=== PATIENT | male | born 1935 | race Caucasian/White ===

== ENCOUNTER 2016-03-01 18:59 | Inpatient (IN) ==
--- NOTE | 2016-03-01 19:22 | Emergency Department Note ---
Disposition Clinical Impression: Sepsis, Pneumonia Disposition: Admitted As Inpatient Condition: Serious General Adult HPI - General Chief complaint: ED General Medical Stated complaint: R/O sepsis Time Seen by Provider: 03/01/16 19:12 Source: EMS Limitations: altered mental status - History of Present Illness Pain Scale: 0 - Related Data Home Medications Medication Instructions Recorded Confirmed Atenolol [Tenormin] 12.5 mg PO DAILY 02/19/16 03/02/16 Finasteride [Proscar] 5 mg PO DAILY 02/19/16 03/02/16 Furosemide [Lasix] 20 mg PO DAILY 02/19/16 03/02/16 GlipiZIDE [Glucotrol] 5 mg PO BID 02/19/16 03/02/16 Ketorolac OPTH Soln [Acular] 1 drop LEFT EYE TID 02/19/16 03/02/16 Linagliptin [Tradjenta] 5 mg PO DAILY 02/19/16 03/02/16 Lisinopril [Zestril] 40 mg PO DAILY 02/19/16 03/02/16 Magnesium Oxide 420 mg PO BID 02/19/16 03/02/16 Moxifloxacin OPTH Drops [Vigamox] 1 drop LEFT EYE QID 02/19/16 03/02/16 Omeprazole 20 mg PO DAILY 02/19/16 03/02/16 PrednisoLONE Acetate 1% Opth 1 drop LEFT EYE QID 02/19/16 03/02/16 [PredFORTE 1%] Simvastatin [Zocor] 40 mg PO DAILY 02/19/16 03/02/16 Tamsulosin [Flomax] 0.4 mg PO BID 03/02/16 03/02/16 Allergies Allergy/AdvReac Type Severity Reaction Status Date / Time metformin AdvReac See Verified 02/19/16 20:30 Comments Penicillins [PCN] AdvReac See Verified 02/19/16 20:30 Comments Past Medical History - Past Medical History Medical history: Reports: CHF, coronary artery disease, dementia, diabetes, GERD , hyperlipidemia, hypertension, peripheral artery disease, renal disease Psychiatric history: Reports: PTSD - Social History Smoking Status: Former smoker Smokeless Tobacco Status: No Alcohol use: Reports: none Drug use: Reports: none Physical Exam - General Limitations: altered mental status General appearance: alert Course Vital Signs Temperature 100.2 F H 03/01/16 19:02 Pulse Rate 114 03/01/16 19:02 Respiratory Rate 20 03/01/16 19:02 Blood Pressure 141/84 03/01/16 19:02 O2 Sat by Pulse Oximetry 90 L 03/01/16 19:02 Temperature 99.7 F H 03/02/16 00:24 Pulse Rate 98 03/02/16 00:24 Respiratory Rate 28 03/02/16 00:24 Blood Pressure 128/69 03/02/16 00:24 O2 Sat by Pulse Oximetry 97 03/02/16 00:24 Oxygen Delivery Oxygen Delivery Venti Mask Medical Decision Making - Lab Data Result diagrams: 03/01/16 19:46 03/01/16 19:46 Lab Results 03/01/16 03/01/16 03/01/16 Range/Units 19:46 19:46 19:46 WBC 18.5 H (4.3-11.1) K/mcL RBC 3.65 L (4.19-5.50) M/mcL Hgb 11.0 L (12.9-16.9) g/dL Hct 31.4 L (37.5-50.1) % MCV 86.0 (83.0-100.0) fL MCH 30.1 (28.0-33.3) pg MCHC 35.0 (31.6-35.5) g/dL RDW 11.7 (11.5-14.5) % Plt Count 223 (140-400) K/mcL MPV 9.5 (9.4-12.4) fL Immature Gran % 0.8 (0-4) % Seg Neutrophils % 84.2 % Lymphocytes % 6.9 % Monocytes % 7.7 % Eosinophils % 0.2 % Basophils % 0.2 % Neutrophils # 15.5 H (1.6-8.9) K/mcL Lymphocytes # 1.3 (0.6-4.6) K/mcL Monocytes # 1.4 H (0.0-1.3) K/mcL Eosinophils # 0.0 (0.0-0.6) K/mcL Basophils # 0.0 (0.0-0.2) K/mcL Immature Plt Fraction 2.4 (1.1-6.1) % PT 12.6 H (9.4-12.1) Seconds INR 1.2 APTT 24.6 L (26.0-36.0) Seconds ABG pH (7.32-7.45) pH Units ABG pCO2 (35-45) mmHg ABG pO2 (85-104) mmHg ABG HCO3 (21-27) mEQ/L ABG Total CO2 (20-26) mEq/L ABG O2 Saturation (95-98) % ABG Base Excess (-2.0 to 3.0) mEq/L Blood Gas Modality Inspired O2 % Sodium 132 L (136-145) mEq/L Potassium 4.1 (3.5-4.5) mEq/L Chloride 98 (98-109) mEq/L Carbon Dioxide 23 (19-29) mEq/L BUN 30 H (8-26) mg/dL Creatinine 1.53 H (0.72-1.25) mg/dL Est GFR ( Amer) 53 L (> 60) Est GFR (Non-Af Amer) 44 L (> 60) BUN/Creatinine Ratio 20 (6-26) Glucose 327 H (70-99) mg/dL Calculated Osmolality 293 (280-300) Lactic Acid (0.5-2.2) mmol/L Calcium 8.5 L (8.6-10.8) mg/dL Phosphorus 3.4 (2.3-4.7) mg/dL Magnesium 1.6 (1.6-2.6) mg/dL Total Bilirubin 0.7 (0.2-1.2) mg/dL Direct Bilirubin 0.4 (0.0-0.5) mg/dL Indirect Bilirubin 0.3 (0.0-1.2) mg/dL AST 12 (5-34) Units/L ALT 14 (0-55) Units/L Alkaline Phosphatase 101 (38-126) Units/L Troponin I (0-0.03) ng/mL Serum Total Protein 5.8 L (6.0-8.3) g/dL Albumin 2.5 L (3.5-5.0) g/dL Globulin 3.3 (2.4-3.5) g/dL Albumin/Globulin Ratio 0.8 L (1.1-2.2) Amylase 36 (25-125) Units/L Lipase 34 (8-78) Units/L Urine Color (Yellow) Urine Clarity (Clear) Urine pH (5.0-8.0) pH Units Ur Specific Scroggins (1.010-1.025) Urine Protein (Neg-Trace) mg/dL Urine Glucose (UA) (Normal) mg/dL Urine Ketones (Negative) mg/dL Urine Blood (Negative) Urine Nitrite (Negative) Urine Bilirubin (Negative) Urine Urobilinogen (Normal) mg/dL Ur Leukocyte Esterase (Negative) Urine Microscopic RBC (0-3) per hpf Urine Microscopic WBC (0-3) per hpf Ur Squamous Epith Cells (None-Few) per lpf Urine Bacteria (None-Few) per hpf Ur Culture Indicated? (NO) 03/01/16 03/01/16 03/01/16 Range/Units 19:46 20:00 20:07 WBC (4.3-11.1) K/mcL RBC (4.19-5.50) M/mcL Hgb (12.9-16.9) g/dL Hct (37.5-50.1) % MCV (83.0-100.0) fL MCH (28.0-33.3) pg MCHC (31.6-35.5) g/dL RDW (11.5-14.5) % Plt Count (140-400) K/mcL MPV (9.4-12.4) fL Immature Gran % (0-4) % Seg Neutrophils % % Lymphocytes % % Monocytes % % Eosinophils % % Basophils % % Neutrophils # (1.6-8.9) K/mcL Lymphocytes # (0.6-4.6) K/mcL Monocytes # (0.0-1.3) K/mcL Eosinophils # (0.0-0.6) K/mcL Basophils # (0.0-0.2) K/mcL Immature Plt Fraction (1.1-6.1) % PT (9.4-12.1) Seconds INR APTT (26.0-36.0) Seconds ABG pH (7.32-7.45) pH Units ABG pCO2 (35-45) mmHg ABG pO2 (85-104) mmHg ABG HCO3 (21-27) mEQ/L ABG Total CO2 (20-26) mEq/L ABG O2 Saturation (95-98) % ABG Base Excess (-2.0 to 3.0) mEq/L Blood Gas Modality Inspired O2 % Sodium (136-145) mEq/L Potassium (3.5-4.5) mEq/L Chloride (98-109) mEq/L Carbon Dioxide (19-29) mEq/L BUN (8-26) mg/dL Creatinine (0.72-1.25) mg/dL Est GFR ( Amer) (> 60) Est GFR (Non-Af Amer) (> 60) BUN/Creatinine Ratio (6-26) Glucose (70-99) mg/dL Calculated Osmolality (280-300) Lactic Acid 1.3 (0.5-2.2) mmol/L Calcium (8.6-10.8) mg/dL Phosphorus (2.3-4.7) mg/dL Magnesium (1.6-2.6) mg/dL Total Bilirubin (0.2-1.2) mg/dL Direct Bilirubin (0.0-0.5) mg/dL Indirect Bilirubin (0.0-1.2) mg/dL AST (5-34) Units/L ALT (0-55) Units/L Alkaline Phosphatase (38-126) Units/L Troponin I 0.02 (0-0.03) ng/mL Serum Total Protein (6.0-8.3) g/dL Albumin (3.5-5.0) g/dL Globulin (2.4-3.5) g/dL Albumin/Globulin Ratio (1.1-2.2) Amylase (25-125) Units/L Lipase (8-78) Units/L Urine Color Yellow (Yellow) Urine Clarity Clear (Clear) Urine pH 6.0 (5.0-8.0) pH Units Ur Specific [place]ggins 1.020 (1.010-1.025) Urine Protein 30 H (Neg-Trace) mg/dL Urine Glucose (UA) >=1000 H (Normal) mg/dL Urine Ketones 15 H (Negative) mg/dL Urine Blood Large H (Negative) Urine Nitrite Negative (Negative) Urine Bilirubin Negative (Negative) Urine Urobilinogen Normal (Normal) mg/dL Ur Leukocyte Esterase Negative (Negative) Urine Microscopic RBC 15-30 H (0-3) per hpf Urine Microscopic WBC 0-3 (0-3) per hpf Ur Squamous Epith Cells Few (None-Few) per lpf Urine Bacteria Few (None-Few) per hpf Ur Culture Indicated? NO (NO) 03/01/16 Range/Units 21:18 WBC (4.3-11.1) K/mcL RBC (4.19-5.50) M/mcL Hgb (12.9-16.9) g/dL Hct (37.5-50.1) % MCV (83.0-100.0) fL MCH (28.0-33.3) pg MCHC (31.6-35.5) g/dL RDW (11.5-14.5) % Plt Count (140-400) K/mcL MPV (9.4-12.4) fL Immature Gran % (0-4) % Seg Neutrophils % % Lymphocytes % % Monocytes % % Eosinophils % % Basophils % % Neutrophils # (1.6-8.9) K/mcL Lymphocytes # (0.6-4.6) K/mcL Monocytes # (0.0-1.3) K/mcL Eosinophils # (0.0-0.6) K/mcL Basophils # (0.0-0.2) K/mcL Immature Plt Fraction (1.1-6.1) % PT (9.4-12.1) Seconds INR APTT (26.0-36.0) Seconds ABG pH 7.40 (7.32-7.45) pH Units ABG pCO2 43 (35-45) mmHg ABG pO2 55 L (85-104) mmHg ABG HCO3 26.6 (21-27) mEQ/L ABG Total CO2 27.9 H (20-26) mEq/L ABG O2 Saturation 88 L (95-98) % ABG Base Excess 1.6 (-2.0 to 3.0) mEq/L Blood Gas Modality VM Inspired O2 50 % Sodium (136-145) mEq/L Potassium (3.5-4.5) mEq/L Chloride (98-109) mEq/L Carbon Dioxide (19-29) mEq/L BUN (8-26) mg/dL Creatinine (0.72-1.25) mg/dL Est GFR ( Amer) (> 60) Est GFR (Non-Af Amer) (> 60) BUN/Creatinine Ratio (6-26) Glucose (70-99) mg/dL Calculated Osmolality (280-300) Lactic Acid (0.5-2.2) mmol/L Calcium (8.6-10.8) mg/dL Phosphorus (2.3-4.7) mg/dL Magnesium (1.6-2.6) mg/dL Total Bilirubin (0.2-1.2) mg/dL Direct Bilirubin (0.0-0.5) mg/dL Indirect Bilirubin (0.0-1.2) mg/dL AST (5-34) Units/L ALT (0-55) Units/L Alkaline Phosphatase (38-126) Units/L Troponin I (0-0.03) ng/mL Serum Total Protein (6.0-8.3) g/dL Albumin (3.5-5.0) g/dL Globulin (2.4-3.5) g/dL Albumin/Globulin Ratio (1.1-2.2) Amylase (25-125) Units/L Lipase (8-78) Units/L Urine Color (Yellow) Urine Clarity (Clear) Urine pH (5.0-8.0) pH Units Ur Specific [place] (1.010-1.025) Urine Protein (Neg-Trace) mg/dL Urine Glucose (UA) (Normal) mg/dL Urine Ketones (Negative) mg/dL Urine Blood (Negative) Urine Nitrite (Negative) Urine Bilirubin (Negative) Urine Urobilinogen (Normal) mg/dL Ur Leukocyte Esterase (Negative) Urine Microscopic RBC (0-3) per hpf Urine Microscopic WBC (0-3) per hpf Ur Squamous Epith Cells (None-Few) per lpf Urine Bacteria (None-Few) per hpf Ur Culture Indicated? (NO) Critical Care Time Critical Care Time: Yes Total Critical Care Time: 45 Attestation: Patient presents as a transfer from the [place] with concern for sepsis. CT chest resulted at 22:40 shows bibasilar infiltrates. Antibiotics to be initiated. Patient meets criteria for sepsis Attestation Statement - Attestation Attestation: I examined this patient and my medical decision-making was reviewed with the [employer]/PA/Advanced Practice Nurse/Resident Physician. I agree with the documented findings, disposition and treatment plan as described except to the extent set forth below. [id number] time provided in conjunction with Dr. Snow Patient presents as a transfer from the [facility] with concern for sepsis. The patient recently has experienced urinary retention secondary to prostate hypertrophy requiring a chronic indwelling [place] catheter. He also recently underwent esophageal dilation and now has some dysphasia versus underlying aphasia. The patient denies symptoms at the time of my exam. [facility] including his past medical history and current medications
--- NOTE | 2016-03-01 19:27 | Emergency Department Note ---
Disposition Clinical Impression: Sepsis Qualifiers: Sepsis type: sepsis due to unspecified organism Qualified Code(s): A41.9 - Sepsis, unspecified organism Pneumonia Qualifiers: Pneumonia type: due to unspecified organism Laterality: bilateral Lung location : lower lobe of lung Qualified Code(s): J18.9 - Pneumonia, unspecified organism Disposition: Admitted As Inpatient Condition: Serious Time of Disposition: 20:37 General Adult HPI - General Chief complaint: ED General Medical Stated complaint: R/O sepsis Time Seen by Provider: 03/01/16 19:12 Source: EMS Limitations: altered mental status Nursing Notes Reviewed: Yes Vital Signs Reviewed: Yes - History of Present Illness HPI Narrative: Patient is 80-year-old male with a history of dementia he states he does not know why he is here. Patient sent over by the [facility] for sepsis rule out secondary to chest x-ray reading for possible pneumonia. Patient's vital signs abnormal with O2 sats in the low 80s to 94% on 15 L, tachycardia in the 110 lux rate and blood pressure from 141/84 - 116/49. EMS stated that patient received esophageal dilation in . He and since then patient has had not eaten. Basically her concern for possible esophageal perforation as well. Pain Scale: 0 - Related Data Home Medications Medication Instructions Recorded Confirmed Atenolol [Tenormin] 12.5 mg PO DAILY 02/19/16 02/19/16 Finasteride [Proscar] 5 mg PO DAILY 02/19/16 02/19/16 Furosemide [Lasix] 20 mg PO DAILY 02/19/16 02/19/16 GlipiZIDE [Glucotrol] 5 mg PO BIDWM 02/19/16 02/19/16 Ketorolac OPTH Soln [Acular] 1 drop LEFT EYE TID 02/19/16 02/19/16 Linagliptin [Tradjenta] 5 mg PO DAILY 02/19/16 02/19/16 Lisinopril [Zestril] 40 mg PO DAILY 02/19/16 02/19/16 Magnesium Oxide 420 mg PO BID 02/19/16 02/19/16 Moxifloxacin OPTH Drops [Vigamox] 1 drop LEFT EYE QID 02/19/16 02/19/16 Omeprazole 20 mg PO DAILY 02/19/16 02/19/16 PrednisoLONE Acetate 1% Opth 1 drop LEFT EYE QID 02/19/16 02/19/16 [PredFORTE 1%] Simvastatin [Zocor] 20 mg PO HS 02/19/16 02/19/16 Tamsulosin [Flomax] 0.4 mg PO BID 03/02/16 03/02/16 Allergies Allergy/AdvReac Type Severity Reaction Status Date / Time metformin AdvReac See Verified 02/19/16 20:30 Comments Penicillins [PCN] AdvReac See Verified 02/19/16 20:30 Comments Review of Systems: Patient denies headache, cough, chills, nausea, vomiting, throat pain, difficulty swallowing, painful swallowing, chest pain, shortness of breath, abdominal pain, extremity pain, weakness, dizziness, neck pain, diarrhea Past Medical History - Past Medical History Source: old records reviewed Medical history: Reports: CHF, coronary artery disease, dementia, diabetes, GERD , hyperlipidemia, hypertension, peripheral artery disease, renal disease Psychiatric history: Reports: PTSD - Social History Smoking Status: Former smoker Smokeless Tobacco Status: No Alcohol use: Reports: none Drug use: Reports: none Physical Exam Vital Signs Temperature 100.2 F H 03/01/16 19:02 Pulse Rate 114 03/01/16 19:02 Respiratory Rate 20 03/01/16 19:02 Blood Pressure 141/84 03/01/16 19:02 O2 Sat by Pulse Oximetry 90 L 03/01/16 19:02 Temperature 100.2 F H 03/01/16 19:02 Pulse Rate 115 03/01/16 19:24 Respiratory Rate 28 03/01/16 19:24 Blood Pressure 116/49 03/01/16 19:24 O2 Sat by Pulse Oximetry 90 L 03/01/16 19:25 Oxygen Delivery Oxygen Delivery Venti Mask -General Appearance: Patient is a 80-year-old male sitting upright in bed this is alert and oriented to himself, he knows he is in a hospital, but he does not know what town or what today's date is. patient states the year is 1986 -Neurological exam: Cranial nerves II-12 intact, no focal deficits observed, strength equal 5/5 bilaterally in upper and lower extremities, cerebellar motion test negative. Negative loss of sensation - Head Head exam: atraumatic, normocephalic, normal inspection - Eye Eye exam: Present: normal appearance, PERRL, EOMI, negative for scleral icterus negative for conjunctival pallor - ENT ENT exam: normal exam, normal oropharynx, mucous membranes moist - Neck Neck exam: Present: normal inspection, full ROM, trachea midline, negative JVD tender to palpation along the lateral aspects of trachea just medial to SCM bilaterally - Chest Chest inspection: Present: Patient has bilateral equal rise and fall of chest wall. Non-tender to palpation. - Respiratory Respiratory exam: Clear to auscultation bilaterally without wheezes rales or rhonchi Cardiovascular Cardiovascular exam: Present: regular rate, normal rhythm, normal heart sounds, without murmurs rubs or gallops. - Abdominal Exam Abdominal exam: Present: soft, nondistended, slightly tender to palpation left lower quadrant Bowel sounds normoactive throughout all 4 quadrants. Negative for hyper or hyperresonance. - patient has long-term indwelling Fairchild catheter since December - Extremities Exam Extremities exam: Present: normal inspection, full ROM - Back Exam Back exam: Present: normal inspection, full ROM. Absent: tenderness, CVA tenderness (R), CVA tenderness (L) - Psychiatric Psychiatric exam: Present: normal affect, normal mood - Skin Skin exam: Present: warm, dry, intact, normal color - General Limitations: altered mental status General appearance: alert Course Course Narrative: Patient seen and examined. Sepsis workup ordered - Reevaluation(s) Reevaluation #1: Patient states he doing well and has no complaints. Patient continues to have desaturations of O2 from removing his mask Time: 19:30 Reevaluation #2: Patient did okay currently trying to rest. Patient still trying to remove O2 mask. Time: 20:03 - Consultations Consultation #1: Dr. Anderson accepted the patient for admission Time: 20:37 Vital Signs Temperature 100.2 F H 03/01/16 19:02 Pulse Rate 114 03/01/16 19:02 Respiratory Rate 20 03/01/16 19:02 Blood Pressure 141/84 03/01/16 19:02 O2 Sat by Pulse Oximetry 90 L 03/01/16 19:02 Temperature 99.7 F H 03/02/16 00:24 Pulse Rate 98 03/02/16 00:24 Respiratory Rate 28 03/02/16 00:24 Blood Pressure 128/69 03/02/16 00:24 O2 Sat by Pulse Oximetry 97 03/02/16 00:24 Oxygen Delivery Oxygen Delivery Venti Mask Medical Decision Making - [facility] Narrative Medical decision making narrative: Patient is tachycardic and tachypnea. Patient's conditions were some for possible sepsis and pneumonia. Sepsis workup was initiated at arrival to the ED. Patient received 3 L of fluid labs are drawn chest x-ray EKG Chest x-ray showed bilateral bibasilar atelectasis. Have high clinical suspicion secondary to patient's tachycardia and desaturations of O2 sats rule high flow O2. Consulted with admitting physician who recommends CT without contrast. CT showed bilateral lower lobe pneumonias. She has a WBC count of 18,000. Patient has a creatinine of 1.53 but is lower than previous accounts. Patient has chronic renal disease. Patient was admitted to the hospital for further workup. Dr. Anderson accepted for admission. - Medical Records Medical records reviewed: Yes I reviewed the patient's medical records. - Lab Data Lab results reviewed: Yes I reviewed the patient's lab results. Result diagrams: 03/01/16 19:46 03/01/16 19:46 Lab Results 03/01/16 03/01/16 03/01/16 Range/Units 19:46 19:46 19:46 WBC 18.5 H (4.3-11.1) K/mcL RBC 3.65 L (4.19-5.50) M/mcL Hgb 11.0 L (12.9-16.9) g/dL Hct 31.4 L (37.5-50.1) % MCV 86.0 (83.0-100.0) fL MCH 30.1 (28.0-33.3) pg MCHC 35.0 (31.6-35.5) g/dL RDW 11.7 (11.5-14.5) % Plt Count 223 (140-400) K/mcL MPV 9.5 (9.4-12.4) fL Immature Gran % 0.8 (0-4) % Seg Neutrophils % 84.2 % Lymphocytes % 6.9 % Monocytes % 7.7 % Eosinophils % 0.2 % Basophils % 0.2 % Neutrophils # 15.5 H (1.6-8.9) K/mcL Lymphocytes # 1.3 (0.6-4.6) K/mcL Monocytes # 1.4 H (0.0-1.3) K/mcL Eosinophils # 0.0 (0.0-0.6) K/mcL Basophils # 0.0 (0.0-0.2) K/mcL Immature Plt Fraction 2.4 (1.1-6.1) % PT 12.6 H (9.4-12.1) Seconds INR 1.2 APTT 24.6 L (26.0-36.0) Seconds ABG pH (7.32-7.45) pH Units ABG pCO2 (35-45) mmHg ABG pO2 (85-104) mmHg ABG HCO3 (21-27) mEQ/L ABG Total CO2 (20-26) mEq/L ABG O2 Saturation (95-98) % ABG Base Excess (-2.0 to 3.0) mEq/L Blood Gas Modality Inspired O2 % Sodium 132 L (136-145) mEq/L Potassium 4.1 (3.5-4.5) mEq/L Chloride 98 (98-109) mEq/L Carbon Dioxide 23 (19-29) mEq/L BUN 30 H (8-26) mg/dL Creatinine 1.53 H (0.72-1.25) mg/dL Est GFR ( Amer) 53 L (> 60) Est GFR (Non-Af Amer) 44 L (> 60) BUN/Creatinine Ratio 20 (6-26) Glucose 327 H (70-99) mg/dL Calculated Osmolality 293 (280-300) Lactic Acid (0.5-2.2) mmol/L Calcium 8.5 L (8.6-10.8) mg/dL Phosphorus 3.4 (2.3-4.7) mg/dL Magnesium 1.6 (1.6-2.6) mg/dL Total Bilirubin 0.7 (0.2-1.2) mg/dL Direct Bilirubin 0.4 (0.0-0.5) mg/dL Indirect Bilirubin 0.3 (0.0-1.2) mg/dL AST 12 (5-34) Units/L ALT 14 (0-55) Units/L Alkaline Phosphatase 101 (38-126) Units/L Troponin I (0-0.03) ng/mL Serum Total Protein 5.8 L (6.0-8.3) g/dL Albumin 2.5 L (3.5-5.0) g/dL Globulin 3.3 (2.4-3.5) g/dL Albumin/Globulin Ratio 0.8 L (1.1-2.2) Amylase 36 (25-125) Units/L Lipase 34 (8-78) Units/L Urine Color (Yellow) Urine Clarity (Clear) Urine pH (5.0-8.0) pH Units Ur Specific Trinity (1.010-1.025) Urine Protein (Neg-Trace) mg/dL Urine Glucose (UA) (Normal) mg/dL Urine Ketones (Negative) mg/dL Urine Blood (Negative) Urine Nitrite (Negative) Urine Bilirubin (Negative) Urine Urobilinogen (Normal) mg/dL Ur Leukocyte Esterase (Negative) Urine Microscopic RBC (0-3) per hpf Urine Microscopic WBC (0-3) per hpf Ur Squamous Epith Cells (None-Few) per lpf Urine Bacteria (None-Few) per hpf Ur Culture Indicated? (NO) 03/01/16 03/01/16 03/01/16 Range/Units 19:46 20:00 20:07 WBC (4.3-11.1) K/mcL RBC (4.19-5.50) M/mcL Hgb (12.9-16.9) g/dL Hct (37.5-50.1) % MCV (83.0-100.0) fL MCH (28.0-33.3) pg MCHC (31.6-35.5) g/dL RDW (11.5-14.5) % Plt Count (140-400) K/mcL MPV (9.4-12.4) fL Immature Gran % (0-4) % Seg Neutrophils % % Lymphocytes % % Monocytes % % Eosinophils % % Basophils % % Neutrophils # (1.6-8.9) K/mcL Lymphocytes # (0.6-4.6) K/mcL Monocytes # (0.0-1.3) K/mcL Eosinophils # (0.0-0.6) K/mcL Basophils # (0.0-0.2) K/mcL Immature Plt Fraction (1.1-6.1) % PT (9.4-12.1) Seconds INR APTT (26.0-36.0) Seconds ABG pH (7.32-7.45) pH Units ABG pCO2 (35-45) mmHg ABG pO2 (85-104) mmHg ABG HCO3 (21-27) mEQ/L ABG Total CO2 (20-26) mEq/L ABG O2 Saturation (95-98) % ABG Base Excess (-2.0 to 3.0) mEq/L Blood Gas Modality Inspired O2 % Sodium (136-145) mEq/L Potassium (3.5-4.5) mEq/L Chloride (98-109) mEq/L Carbon Dioxide (19-29) mEq/L BUN (8-26) mg/dL Creatinine (0.72-1.25) mg/dL Est GFR ( Amer) (> 60) Est GFR (Non-Af Amer) (> 60) BUN/Creatinine Ratio (6-26) Glucose (70-99) mg/dL Calculated Osmolality (280-300) Lactic Acid 1.3 (0.5-2.2) mmol/L Calcium (8.6-10.8) mg/dL Phosphorus (2.3-4.7) mg/dL Magnesium (1.6-2.6) mg/dL Total Bilirubin (0.2-1.2) mg/dL Direct Bilirubin (0.0-0.5) mg/dL Indirect Bilirubin (0.0-1.2) mg/dL AST (5-34) Units/L ALT (0-55) Units/L Alkaline Phosphatase (38-126) Units/L Troponin I 0.02 (0-0.03) ng/mL Serum Total Protein (6.0-8.3) g/dL Albumin (3.5-5.0) g/dL Globulin (2.4-3.5) g/dL Albumin/Globulin Ratio (1.1-2.2) Amylase (25-125) Units/L Lipase (8-78) Units/L Urine Color Yellow (Yellow) Urine Clarity Clear (Clear) Urine pH 6.0 (5.0-8.0) pH Units Ur Specific Trinity 1.020 (1.010-1.025) Urine Protein 30 H (Neg-Trace) mg/dL Urine Glucose (UA) >=1000 H (Normal) mg/dL Urine Ketones 15 H (Negative) mg/dL Urine Blood Large H (Negative) Urine Nitrite Negative (Negative) Urine Bilirubin Negative (Negative) Urine Urobilinogen Normal (Normal) mg/dL Ur Leukocyte Esterase Negative (Negative) Urine Microscopic RBC 15-30 H (0-3) per hpf Urine Microscopic WBC 0-3 (0-3) per hpf Ur Squamous Epith Cells Few (None-Few) per lpf Urine Bacteria Few (None-Few) per hpf Ur Culture Indicated? NO (NO) 03/01/16 Range/Units 21:18 WBC (4.3-11.1) K/mcL RBC (4.19-5.50) M/mcL Hgb (12.9-16.9) g/dL Hct (37.5-50.1) % MCV (83.0-100.0) fL MCH (28.0-33.3) pg MCHC (31.6-35.5) g/dL RDW (11.5-14.5) % Plt Count (140-400) K/mcL MPV (9.4-12.4) fL Immature Gran % (0-4) % Seg Neutrophils % % Lymphocytes % % Monocytes % % Eosinophils % % Basophils % % Neutrophils # (1.6-8.9) K/mcL Lymphocytes # (0.6-4.6) K/mcL Monocytes # (0.0-1.3) K/mcL Eosinophils # (0.0-0.6) K/mcL Basophils # (0.0-0.2) K/mcL Immature Plt Fraction (1.1-6.1) % PT (9.4-12.1) Seconds INR APTT (26.0-36.0) Seconds ABG pH 7.40 (7.32-7.45) pH Units ABG pCO2 43 (35-45) mmHg ABG pO2 55 L (85-104) mmHg ABG HCO3 26.6 (21-27) mEQ/L ABG Total CO2 27.9 H (20-26) mEq/L ABG O2 Saturation 88 L (95-98) % ABG Base Excess 1.6 (-2.0 to 3.0) mEq/L Blood Gas Modality VM Inspired O2 50 % Sodium (136-145) mEq/L Potassium (3.5-4.5) mEq/L Chloride (98-109) mEq/L Carbon Dioxide (19-29) mEq/L BUN (8-26) mg/dL Creatinine (0.72-1.25) mg/dL Est GFR ( Amer) (> 60) Est GFR (Non-Af Amer) (> 60) BUN/Creatinine Ratio (6-26) Glucose (70-99) mg/dL Calculated Osmolality (280-300) Lactic Acid (0.5-2.2) mmol/L Calcium (8.6-10.8) mg/dL Phosphorus (2.3-4.7) mg/dL Magnesium (1.6-2.6) mg/dL Total Bilirubin (0.2-1.2) mg/dL Direct Bilirubin (0.0-0.5) mg/dL Indirect Bilirubin (0.0-1.2) mg/dL AST (5-34) Units/L ALT (0-55) Units/L Alkaline Phosphatase (38-126) Units/L Troponin I (0-0.03) ng/mL Serum Total Protein (6.0-8.3) g/dL Albumin (3.5-5.0) g/dL Globulin (2.4-3.5) g/dL Albumin/Globulin Ratio (1.1-2.2) Amylase (25-125) Units/L Lipase (8-78) Units/L Urine Color (Yellow) Urine Clarity (Clear) Urine pH (5.0-8.0) pH Units Ur Specific Trinity (1.010-1.025) Urine Protein (Neg-Trace) mg/dL Urine Glucose (UA) (Normal) mg/dL Urine Ketones (Negative) mg/dL Urine Blood (Negative) Urine Nitrite (Negative) Urine Bilirubin (Negative) Urine Urobilinogen (Normal) mg/dL Ur Leukocyte Esterase (Negative) Urine Microscopic RBC (0-3) per hpf Urine Microscopic WBC (0-3) per hpf Ur Squamous Epith Cells (None-Few) per lpf Urine Bacteria (None-Few) per hpf Ur Culture Indicated? (NO) Short CBC 03/01/16 Range/Units 19:46 WBC 18.5 H (4.3-11.1) K/mcL Hgb 11.0 L (12.9-16.9) g/dL Hct 31.4 L (37.5-50.1) % Plt Count 223 (140-400) K/mcL Neutrophils # 15.5 H (1.6-8.9) K/mcL BMP 03/01/16 Range/Units 19:46 Sodium 132 L (136-145) mEq/L Potassium 4.1 (3.5-4.5) mEq/L Chloride 98 (98-109) mEq/L Carbon Dioxide 23 (19-29) mEq/L BUN 30 H (8-26) mg/dL Creatinine 1.53 H (0.72-1.25) mg/dL Glucose 327 H (70-99) mg/dL Calcium 8.5 L (8.6-10.8) mg/dL Cardiac Enzymes 03/01/16 Range/Units 19:46 Troponin I 0.02 (0-0.03) ng/mL Liver Function 03/01/16 Range/Units 19:46 Total Bilirubin 0.7 (0.2-1.2) mg/dL Direct Bilirubin 0.4 (0.0-0.5) mg/dL AST 12 (5-34) Units/L ALT 14 (0-55) Units/L Alkaline Phosphatase 101 (38-126) Units/L Albumin 2.5 L (3.5-5.0) g/dL Urine 03/01/16 Range/Units 20:00 Urine Color Yellow (Yellow) Urine Clarity Clear (Clear) Urine pH 6.0 (5.0-8.0) pH Units Ur Specific Trinity 1.020 (1.010-1.025) Urine Protein 30 H (Neg-Trace) mg/dL Urine Glucose (UA) >=1000 H (Normal) mg/dL - Radiology Data Radiology results reviewed: Yes I reviewed the patient's radiology results. Chest X-Ray 03/01/16 19:27 IMPRESSION: 1. Pulmonary vascular congestion and suspected perihilar edema with mild cardiomegaly, suggesting congestive heart failure. 2. Bibasilar opacities most likely represent atelectasis. D/ / Mohan Veliz MD / Mohan Veliz MD Interpreting Provider: Mohan Veliz MD Chest CT 03/01/16 21:10 IMPRESSION: Motion artifact limits evaluation. However there is consolidation in both lower lobes compatible with pneumonia, possibly related to aspiration. At least moderate atherosclerotic calcification including the coronary arteries and aortic valve. D/ / 03/01/2016 22:36:01 Alireza Peralta MD / Tania Preciado Interpreting Provider: Alireza Peralta MD - EKG Data EKG #1 EKG attestation: Yes I reviewed and interpreted this EKG. EKG results narrative: EKG taken 03/01/2016 at 1920 hrs. shows a sinus tach at a ventricular rate of 113 bpm as he depression in V3 EKG taken 1219 2015 for comparison shows sinus rhythm with PACs with no ST abnormalities.
[2016-03-01] MEDS: 0.9 % Sodium Chloride 1,000 ML IVC SCH ×3 (19:29→20:37)
[2016-03-01] MEDS ORDERED: 0.9 % Sodium Chloride 1,000 ML IVC SCH (19:30)
[2016-03-01 20:00] LABS: Basophils % 0.2 %; Eosinophils % 0.2 %; Hematocrit 31.4 % (37.5-50.1); Immature Granulocytes % 0.8 % (0-4); Immature Platelets 2.4 % (1.1-6.1); Lymphocytes # 1.3 K/mcL (0.6-4.6); Lymphocytes % 6.9 %; Mean Corpuscular Hemoglobin 30.1 pg (28.0-33.3); Mean Platelet Volume 9.5 fL (9.4-12.4); Monocytes # 1.4 K/mcL (0.0-1.3); Monocytes % 7.7 %; Neutrophils # 15.5 K/mcL (1.6-8.9); Platelet Count 223 K/mcL (140-400); Red Blood Count 3.65 M/mcL (4.19-5.50); Red Cell Distribution Width 11.7 % (11.5-14.5); Segmented Neutrophils % 84.2 %
[2016-03-01 20:05] LABS: INR 1.2; Prothrombin Time 12.6 Seconds (9.4-12.1)
[2016-03-01 20:07] LABS: Activated Partial Thrombo Time 24.6 Seconds (26.0-36.0)
[2016-03-01 20:16] LABS: Albumin 2.5 g/dL (3.5-5.0); Albumin/Globulin Ratio 0.8 (1.1-2.2); Bilirubin,Direct 0.4 mg/dL (0.0-0.5); Bilirubin,Indirect 0.3 mg/dL (0.0-1.2); Bilirubin,Total 0.7 mg/dL (0.2-1.2); Calcium 8.5 mg/dL (8.6-10.8); Globulin 3.3 g/dL (2.4-3.5); Magnesium 1.6 mg/dL (1.6-2.6); Phosphorous 3.4 mg/dL (2.3-4.7); Potassium 4.1 mEq/L (3.5-4.5); Total Protein 5.8 g/dL (6.0-8.3)
[2016-03-01 20:20] LABS: Bilirubin,Urine Negative (Negative); Blood,Urine Large (Negative); Clarity,Urine Clear (Clear); Color,Urine Yellow (Yellow); Glucose,Urine (UA) >=1000 mg/dL (Normal); Ketones,Urine 15 mg/dL (Negative); Leukocyte Esterase,Urine Negative (Negative); Nitrite,Urine Negative (Negative); Protein,Urine 30 mg/dL (Neg-Trace); Urobilinogen,Urine Normal (Normal)
[2016-03-01 20:32] LABS: Bacteria,Urine Few per hpf (None-Few); RBC,Urine 15-30 per hpf (0-3); WBC,Urine 0-3 per hpf (0-3)
[2016-03-01 20:33] LABS: Squamous Epithelial Cell,Urine Few per lpf (None-Few)
[2016-03-01 21:29] LABS: ABG Base Excess 1.6 mEq/L (-2.0 to 3.0); ABG HCO3 26.6 mEQ/L (21-27); ABG Oxygen Saturation 88 % (95-98); ABG PCO2 43 mmHg (35-45); ABG PO2 55 mmHg (85-104); ABG TCO2 27.9 mEq/L (20-26); Blood Gas FiO2 50 %
--- NOTE | 2016-03-01 22:22 | Internal Med History&Physical ---
Date of Encounter: 03/01/16 Time of Encounter: 22:00 Assessment and Plan (1) Sepsis Current visit: Yes Status: Acute Sepsis secondary to likely pneumonia in the setting of acute respiratory failure. Patient also found to have elevated WBC 18.5, tachycardia, tachypnea. Currently oxygen saturation improving on 15 LMP via ventimask. Blood cultures pending. Plan to start Levaquin, Cefepime, and clindamycin. Qualifiers: Sepsis type: sepsis due to unspecified organism Qualified Code(s): A41.9 - Sepsis, unspecified organism (2) Acute respiratory failure with hypoxia Current visit: Yes Status: Acute Secondary to bilateral lower lobe pneumonia. CT chest showed bilateral infiltrate suggestive of pneumonia, possibly related to aspiration. See above. (3) Pneumonia Current visit: Yes Status: Acute Concern for HAP as patient was recently inpatient for 4 days last week. See plan above. Qualifiers: Pneumonia type: aspiration pneumonia Aspiration pneumonia type: unspecified Laterality: bilateral Lung location: lower lobe of lung Qualified Code(s): J69.0 - Pneumonitis due to inhalation of food and vomit (4) Dysphagia Current visit: No Status: Chronic History of dysphagia, underwent esophageal dilation on 02/01/16. Concern for aspiration pneumonia. Currently NPO Speech consulted to re-evaluate swallowing. Qualifiers: Dysphagia type: pharyngeal phase Qualified Code(s): R13.13 - Dysphagia, pharyngeal phase (5) Anemia Current visit: No Status: Chronic H/H stable. Continue to monitor. No signs of active bleeding. Qualifiers: Anemia type: unspecified type Qualified Code(s): D64.9 - Anemia, unspecified (6) CAD (coronary artery disease) Current visit: No Status: Chronic Continue ASA, statin, BB Qualifiers: Coronary Disease-Associated Artery/Lesion type: zuni artery [place] vs. transplanted heart: zuni heart Associated angina: without angina Qualified Code(s): I25.10 - Atherosclerotic heart disease of zuni coronary artery without angina pectoris (7) CHF (congestive heart failure) Current visit: No Status: Chronic CXR showed perihilar edema suggestive of CHF. Clinically does not appear to be fluid overloaded. Qualifiers: Congestive heart failure type: unspecified congestive heart failure type Congestive heart failure chronicity: unspecified congestive heart failure chronicity Qualified Code(s): I50.9 - Heart failure, unspecified (8) Dementia Current visit: No Status: Chronic Patient oriented to person, but not place, time, or situation. Qualifiers: Dementia type: Alzheimer's disease Alzheimer's disease onset: unspecified onset Dementia behavioral disturbance: without behavioral disturbance Qualified Code(s): G30.9 - Alzheimer's disease, unspecified; F02.80 - Dementia in other diseases classified elsewhere without behavioral disturbance (9) Diabetes Current visit: No Status: Chronic BG elevated at 327. Will initiate SSI Monitor Q6H. Qualifiers: Diabetes mellitus type: type 2 Diabetes mellitus complication status: without complication Diabetes mellitus penitentiary insulin use: without penitentiary use Qualified Code(s): E11.9 - Type 2 diabetes mellitus without complications (10) Hyperlipidemia Current visit: No Status: Chronic Continue statin. Qualifiers: Hyperlipidemia type: unspecified Qualified Code(s): E78.5 - Hyperlipidemia , unspecified (11) Hypertension Current visit: No Status: Chronic Currently normotensive. Continue hiome medicatons. Qualifiers: Hypertension type: essential hypertension Qualified Code(s): I10 - Essential (primary) hypertension Internal Medicine - H&P: HPI Chief complaint: r/o sepsis Admitted From: Hospital to Hospital Transfer Plans for Post Hospital Care: Home History of present illness: Mr. Edge is a 80 year old male that presents from the [place] with concerns of sepsis. Patient has pertinent history of Alzheimer's and is unable to give any history. Patient currently denies any and all complaints during examination. Patient had an esophageal dilation on 02/21/16 for dysphagia, for which he currently does not recall. Known history of urinary retention due to prostate hypertrophy with a chronic indwelling henderson. Recently diagnosed with UTI, negative UA in the ED today. Patient found to be in respiratory distress with hypoxia, requiring 15 LPM via ventimask to maintain O2 above 90%. CT chest suggestive of pneumonia, possibly related to aspiration. Past Med Surg Social Fam HX - Past Medical History Medical history: CHF, coronary artery disease, dementia, diabetes, GERD, hyperlipidemia, hypertension, peripheral artery disease, renal disease Psychiatric history: PTSD - Social History Smoking Status: Former smoker Smokeless Tobacco Status: No Alcohol use: none Drug use: none Internal Medicine - H&P: Meds Atenolol [Tenormin] 12.5 mg PO DAILY 02/19/16 [History] Finasteride [Proscar] 5 mg PO DAILY 02/19/16 [History] Fosfomycin Tromethamine [Monurol] 3 gm PO Q48H 02/19/16 [History] Furosemide [Lasix] 20 mg PO DAILY 02/19/16 [History] GlipiZIDE [Glucotrol] 5 mg PO BIDWM 02/19/16 [History] Ketorolac OPTH Soln [Acular] 1 drop LEFT EYE TID 02/19/16 [History] Linagliptin [Tradjenta] 5 mg PO DAILY 02/19/16 [History] Lisinopril [Zestril] 40 mg PO DAILY 02/19/16 [History] Magnesium Oxide 420 mg PO BID 02/19/16 [History] Moxifloxacin OPTH Drops [Vigamox] 1 drop LEFT EYE QID 02/19/16 [History] Omeprazole 20 mg PO DAILY 02/19/16 [History] PrednisoLONE Acetate 1% Opth [PredFORTE 1%] 1 drop LEFT EYE QID 02/19/16 [ History] Simvastatin [Zocor] 20 mg PO HS 02/19/16 [History] Levofloxacin [Levaquin] 250 mg PO DAILY #7 tablet 02/22/16 [Rx] Allergies metformin Adverse Reaction (Verified 02/19/16 20:30) See Comments Penicillins [PCN] Adverse Reaction (Verified 02/19/16 20:30) See Comments ROS unobtainable: due to mental status All Systems PM: A 10-system review of systems was performed and is negative for pertinent findings except as documented above in the HPI. - EENT Nose, mouth and throat: dysphagia - Respiratory Respiratory: dyspnea - Constitutional Vitals: Temp Pulse Resp BP Pulse Ox 100.2 F H 107 24 125/69 94 L 03/01/16 19:02 03/01/16 21:42 03/01/16 21:42 03/01/16 21:42 03/01/16 21:42 General appearance: Present: cooperative, A&O X 1, mild distress, pleasant. Absent: answers questions appropriately - Head Head exam: Present: atraumatic, normocephalic - Eye Eye exam: Present: EOMI, conjuntiva pink, sclera anicteric Pupils: Present: miosis - Neck Neck exam general surgery: Present: supple, trachea midline. Absent: lymphadenopathy, tenderness, nuchal rigidity - Respiratory Respiratory exam: Present: decreased breath sounds, CTAB. Absent: accessory muscle use, rales, rhonchi, wheezes - Cardiovascular Cardiovascular exam: Present: distant heart sounds, +S1, +S2, tachycardia. Absent: gallop, rubs - GI/Abdominal GI/Abdominal exam: Present: normal bowel sounds, soft, no peritoneal signs. Absent: distended, guarding, tenderness - Extremities Exam Extremities exam: Present: warm, radial pulses palpable and symetrical (Left dorsalis pedis 1+, right dorsalis pedis 2+). Absent: calf tenderness, cyanotic , pedal edema - Neurological Exam Neurological exam: Present: alert, altered, no focal deficits, strengths equal and symetr throughout. Absent: facial droop, speech deficit - Skin Skin exam: Present: dry, intact Internal Med - H&P Results - Labs CBC & Chem 7: 03/01/16 19:46 03/01/16 19:46
[2016-03-01] MEDS ORDERED: Vancomycin 1,000 MG in D5% in Water 250 ML IVPB ONE (22:40)
[2016-03-01] MEDS ORDERED: Levofloxacin 500 MG/100 ML 500 MG/100 ML BAG IVPB ONE (22:52)
[2016-03-01] MEDS ORDERED: Clindamycin 900 MG/50 ML 900 MG/50 ML IV.SOLN IVPB ONE (22:52)
[2016-03-01] MEDS ORDERED: D5% in Water 1,000 ML IV PRN (23:41)
[2016-03-01] MEDS ORDERED: Dextrose Gel 15 GM PO PRN ×2 (23:41)
[2016-03-01] MEDS ORDERED: *HR* Dextrose 50 % in Water (Syg) 50 ML SYRINGE IVP PRN (23:41)
[2016-03-02] MEDS ORDERED: Cefepime HCl 2,000 MG in D5% in Water (Mini-Bag+) 100 ML IVPB SCH
[2016-03-02] MEDS: 0.9 % Sodium Chloride 1,000 ML IVC SCH (01:17)
[2016-03-02] MEDS: Cefepime HCl 2,000 MG in D5% in Water (Mini-Bag+) 100 ML IVPB SCH ×2 (01:17→14:10)
[2016-03-02] MEDS: Insulin LISPRO 300 UNITS/3 ML VIAL SQ SCH ×4 (01:25→18:52)
[2016-03-02 05:24] LABS: Basophils % 0.2 %; Eosinophils % 0.2 %; Hematocrit 29.7 % (37.5-50.1); Hemoglobin 10.1 g/dL (12.9-16.9); Immature Granulocytes % 0.8 % (0-4); Lymphocytes # 1.9 K/mcL (0.6-4.6); Lymphocytes % 11.8 %; Mean Corpuscular Volume 88.1 fL (83.0-100.0); Mean Platelet Volume 9.6 fL (9.4-12.4); Monocytes # 1.3 K/mcL (0.0-1.3); Neutrophils # 12.6 K/mcL (1.6-8.9); Platelet Count 217 K/mcL (140-400); Red Blood Count 3.37 M/mcL (4.19-5.50); Red Cell Distribution Width 11.7 % (11.5-14.5)
[2016-03-02 05:44] LABS: BUN/Creatinine Ratio 20 (6-26); Blood Urea Nitrogen 24 mg/dL (8-26); Calcium 7.9 mg/dL (8.6-10.8); Carbon Dioxide 23 mEq/L (19-29); Chloride 105 mEq/L (98-109); Glucose 150 mg/dL (70-99); Osmolality,Calculated 289 (280-300); Potassium 3.8 mEq/L (3.5-4.5); Sodium 136 mEq/L (136-145); eGFR For African Americans > 60 (> 60); eGFR For Non-African Americans 59 (> 60)
[2016-03-02] MEDS: Clindamycin 600 MG/50 ML 600 MG/50 ML IV.SOLN IVPB SCH ×2 (10:34→18:51)
[2016-03-02] MEDS: Pantoprazole 40 MG VIAL IVP SCH (10:34)
--- NOTE | 2016-03-02 18:14 | Internal Med Progress Note ---
Date of Encounter: 03/02/16 Time of Encounter: 18:00 - Assessment and plan (1) Acute respiratory failure with hypoxia Current Visit: Yes Status: Acute Assessment and plan: Possible secondary to aspiration pneumonia continue current antibiotic, continue aerosol treatment, awaiting speech therapy for evaluation (2) Pneumonia Current Visit: Yes Status: Acute Qualifiers: Pneumonia type: aspiration pneumonia Aspiration pneumonia type: unspecified Laterality: bilateral Lung location: lower lobe of lung Qualified Code(s): J69.0 - Pneumonitis due to inhalation of food and vomit (3) Dysphagia Current Visit: No Status: Chronic Assessment and plan: speech therapy to evaluate next am Qualifiers: Dysphagia type: pharyngeal phase Qualified Code(s): R13.13 - Dysphagia, pharyngeal phase (4) Mental status alteration Current Visit: Yes Status: Acute Assessment and plan: Possible secondary to pneumonia will reevaluate next exam. Check vitamin B12 and 25-hydroxy vitamin D Qualifiers: Altered mental status type: delirium Qualified Code(s): R41.0 - Disorientation, unspecified - Time Spent With Patient 25 - 35 minutes - Subjective Interval history: Patient is feeling better still continue to have shortness of breath. he is alert oriented 1 - Constitutional Vitals: Temp Pulse Resp BP Pulse Ox 97.6 F 114 20 113/89 94 L 03/02/16 15:00 03/02/16 15:00 03/02/16 15:00 03/02/16 15:00 03/02/16 15:00 General appearance: Present: cooperative, A&O X 1, mild distress, pleasant. Absent: answers questions appropriately - Head Head exam: Present: atraumatic, normocephalic - Neck Neck exam general surgery: Present: supple, trachea midline. Absent: lymphadenopathy - Respiratory Respiratory exam: Present: decreased breath sounds, CTAB, prolonged expiratory phase, rales (Diffuse crackles and expiratory wheezing bilateral), wheezes. Absent: accessory muscle use, rhonchi - Cardiovascular Cardiovascular exam: Present: RRR, +S1, +S2. Absent: diastolic murmur, gallop, rubs, systolic murmur - GI/Abdominal GI/Abdominal exam: Present: normal bowel sounds, soft, no peritoneal signs. Absent: distended, tenderness - Extremities Exam Extremities exam: Present: warm, radial pulses palpable and symetrical. Absent : calf tenderness, cyanotic, pedal edema - Neurological Exam Neurological exam: Present: CN II-XII intact, no focal deficits. Absent: facial droop, speech deficit Internal Medicine: Result - Labs CBC & Chem 7: 03/02/16 05:05 03/02/16 05:05 Labs: Short CBC 03/02/16 Range/Units 05:05 WBC 16.0 H (4.3-11.1) K/mcL Hgb 10.1 L (12.9-16.9) g/dL Hct 29.7 L (37.5-50.1) % Plt Count 217 (140-400) K/mcL Neutrophils # 12.6 H (1.6-8.9) K/mcL BMP 03/02/16 05:05 Sodium 136 Potassium 3.8 Chloride 105 Carbon Dioxide 23 BUN 24 Creatinine 1.19 Glucose 150 H Calcium 7.9 L - ABG Interpretation ABG results: ABG ABG pH 7.40 pH Units (7.32-7.45) 03/01/16 21:18 ABG pCO2 43 mmHg (35-45) 03/01/16 21:18 ABG pO2 55 mmHg (85-104) L 03/01/16 21:18 ABG O2 Saturation 88 % (95-98) L 03/01/16 21:18 PT/INR, D-dimer PT 12.6 Seconds (9.4-12.1) H 03/01/16 19:46 Consult Discharge Plan - Plan [facility]: [facility] [Primary Care Provider[facility] -
[2016-03-02] MEDS ORDERED: Thiamine (B-1) 100 MG in D5% in Water 50 ML IVPB ONE (18:21)
[2016-03-02] MEDS: Lactobacillus 1 EACH CAP.SPRINK PO SCH (18:49)
[2016-03-02] MEDS: Ipratropium/Albuterol Neb 3 ML IH SCH (21:40)
[2016-03-02] MEDS ORDERED: Levofloxacin 750 MG/150 ML 750 MG/150 ML BAG IVPB SCH (22:00)
[2016-03-03] MEDS: 0.9 % Sodium Chloride 1,000 ML IVC SCH (00:03)
[2016-03-03] MEDS: Clindamycin 600 MG/50 ML 600 MG/50 ML IV.SOLN IVPB SCH ×4 (00:04→22:48)
[2016-03-03] MEDS: Insulin LISPRO 300 UNITS/3 ML VIAL SQ SCH ×4 (00:04→18:30)
[2016-03-03] MEDS: Ipratropium/Albuterol Neb 3 ML IH SCH ×7 (00:37→23:21)
[2016-03-03] MEDS: Cefepime HCl 2,000 MG in D5% in Water (Mini-Bag+) 100 ML IVPB SCH ×2 (00:55→13:29)
[2016-03-03 05:51] LABS: Basophils # 0.1 K/mcL (0.0-0.2); Basophils % 0.4 %; Eosinophils # 0.2 K/mcL (0.0-0.6); Eosinophils % 1.2 %; Hemoglobin 10.7 g/dL (12.9-16.9); Immature Granulocytes % 0.9 % (0-4); Lymphocytes # 1.4 K/mcL (0.6-4.6); Lymphocytes % 9.9 %; Mean Corpuscular HGB Conc 34.5 g/dL (31.6-35.5); Mean Corpuscular Hemoglobin 30.4 pg (28.0-33.3); Mean Corpuscular Volume 88.1 fL (83.0-100.0); Mean Platelet Volume 9.5 fL (9.4-12.4); Monocytes # 1.2 K/mcL (0.0-1.3); Monocytes % 8.5 %; Neutrophils # 10.8 K/mcL (1.6-8.9); Platelet Count 224 K/mcL (140-400); Red Blood Count 3.52 M/mcL (4.19-5.50); Red Cell Distribution Width 12.1 % (11.5-14.5); Segmented Neutrophils % 79.1 %
[2016-03-03 06:31] LABS: BUN/Creatinine Ratio 18 (6-26); Blood Urea Nitrogen 20 mg/dL (8-26); Calcium 8.1 mg/dL (8.6-10.8); Carbon Dioxide 18 mEq/L (19-29); Chloride 110 mEq/L (98-109); Glucose 166 mg/dL (70-99); Osmolality,Calculated 292 (280-300); Potassium 3.6 mEq/L (3.5-4.5); Sodium 138 mEq/L (136-145); eGFR For African Americans > 60 (> 60); eGFR For Non-African Americans > 60 (> 60)
[2016-03-03 06:32] LABS: Phosphorous 2.8 mg/dL (2.3-4.7)
[2016-03-03] MEDS: Lactobacillus 1 EACH CAP.SPRINK PO SCH (09:55)
[2016-03-03] MEDS: Pantoprazole 40 MG VIAL IVP SCH (09:55)
[2016-03-03] MEDS ORDERED: Furosemide 40 MG/4 ML VIAL IVP ONE (11:34)
--- NOTE | 2016-03-03 11:38 | Internal Med Progress Note ---
Date of Encounter: 03/03/16 Time of Encounter: 10:50 - Assessment and plan (1) Acute respiratory failure with hypoxia Current Visit: Yes Status: Acute Assessment and plan: Possible secondary to aspiration pneumonia , CHF , change home Lasix to IV . 40 mg Lasix now .resume beta andrea and ALANA inhibitor .continue current antibiotic, continue aerosol treatment, modified diet started (2) Pneumonia Current Visit: Yes Status: Acute Qualifiers: Pneumonia type: aspiration pneumonia Aspiration pneumonia type: unspecified Laterality: bilateral Lung location: lower lobe of lung Qualified Code(s): J69.0 - Pneumonitis due to inhalation of food and vomit (3) Dysphagia Current Visit: No Status: Chronic Assessment and plan: agreed with speach therapy .start modified diet Qualifiers: Dysphagia type: pharyngeal phase Qualified Code(s): R13.13 - Dysphagia, pharyngeal phase (4) Mental status alteration Current Visit: Yes Status: Acute Assessment and plan: Possible secondary to pneumonia ,Family meeting to evaluate for his baseline , continue current treatment Qualifiers: Altered mental status type: delirium Qualified Code(s): R41.0 - Disorientation, unspecified (5) Diabetes mellitus Current Visit: Yes Status: Acute Assessment and plan: Add insulin sliding scale, last hemoglobin A1c is more than 9 need home health care on discharge Qualifiers: Diabetes mellitus type: type 2 Diabetes mellitus complication status: with diabetic arthropathy Diabetes mellitus group home insulin use: without dedicated intermodal truck driver use Qualified Code(s): E11.610 - Type 2 diabetes mellitus with diabetic neuropathic arthropathy (6) Hypophosphatemia Current Visit: Yes Status: Acute Assessment and plan: Improving (7) Physical deconditioning Current Visit: Yes Status: Acute Assessment and plan: PT OT - Time Spent With Patient 25 - 35 minutes - Subjective Interval history: Patient is complaining of a productive cough with greenish phlegm, he is complaining of orthopnea and progressive lower extremity swelling - Constitutional Vitals: Temp Pulse Resp BP Pulse Ox 97.7 F 114 18 123/79 96 03/03/16 07:00 03/03/16 07:00 03/03/16 07:45 03/03/16 07:00 03/03/16 07:45 General appearance: Present: cooperative, A&O X 1, mild distress, pleasant. Absent: answers questions appropriately - Head Head exam: Present: atraumatic, normocephalic - Neck Neck exam general surgery: Present: supple, trachea midline. Absent: lymphadenopathy - Respiratory Respiratory exam: Present: decreased breath sounds, prolonged expiratory phase, rales, wheezes. Absent: accessory muscle use, rhonchi - Cardiovascular Cardiovascular exam: Present: RRR, +S1, +S2, systolic murmur ( early systolic murmur 3 out of 6 ). Absent: diastolic murmur, gallop, rubs - GI/Abdominal GI/Abdominal exam: Present: normal bowel sounds, soft, no peritoneal signs. Absent: distended, tenderness - Extremities Exam Extremities exam: Present: calf tenderness, pedal edema (3-4 positive bilateral lower extremity edema) - Skin Skin exam: Present: dry, intact Internal Medicine: Result - Labs CBC & Chem 7: 03/03/16 05:17 03/03/16 05:17 Labs: Short CBC 03/03/16 Range/Units 05:17 WBC 13.6 H (4.3-11.1) K/mcL Hgb 10.7 L (12.9-16.9) g/dL Hct 31.0 L (37.5-50.1) % Plt Count 224 (140-400) K/mcL Neutrophils # 10.8 H (1.6-8.9) K/mcL BMP 03/03/16 05:17 Sodium 138 Potassium 3.6 Chloride 110 H Carbon Dioxide 18 L BUN 20 Creatinine 1.11 Glucose 166 H Calcium 8.1 L - ABG Interpretation ABG results: ABG ABG pH 7.40 pH Units (7.32-7.45) 03/01/16 21:18 ABG pCO2 43 mmHg (35-45) 03/01/16 21:18 ABG pO2 55 mmHg (85-104) L 03/01/16 21:18 ABG O2 Saturation 88 % (95-98) L 03/01/16 21:18 PT/INR, D-dimer PT 12.6 Seconds (9.4-12.1) H 03/01/16 19:46 Consult Discharge Plan - Plan [facility]: [facility] [Primary Care Provider] -
[2016-03-03] MEDS ORDERED: Ketorolac OPTH Soln 5 ML BOTTLE LEFT EYE SCH (11:45)
[2016-03-03] MEDS ORDERED: PrednisoLONE Acetate 1% Opth 5 ML BOTTLE LEFT EYE SCH (13:00)
[2016-03-03] MEDS ORDERED: Moxifloxacin OPTH Drops 3 ML BOTTLE LEFT EYE SCH (13:00)
[2016-03-03] MEDS: Magnesium Oxide 400 MG TABLET PO SCH ×2 (13:18→20:19)
[2016-03-03] MEDS: Lisinopril 20 MG TABLET PO SCH (13:18)
[2016-03-03] MEDS: Finasteride 5 MG TABLET PO SCH (13:18)
--- NOTE | 2016-03-03 14:31 | Electrocardiograph Report ---
[facility] Test Date: 2016-03-01 Pat Name: Byron Edge Department: 103 Room: 2NE34 Gender: M Credit Intern: FLASH : 1935 Requested By: Mykel Snow Order Number: [id number] Reading MD: Gurpreet Hernandez MD Measurements Intervals Wallace Rate: 113 P: 50 LA: 135 QRS: 9 QRSD: 91 T: 22 QT: 325 QTc: 392 Interpretive Statements SINUS TACHYCARDIA WITH PVC Electronically Signed On 03-03-16 14:30:41 EST by Gurpreet Hernandez MD
[2016-03-03] MEDS: Levofloxacin 750 MG/150 ML 750 MG/150 ML BAG IVPB SCH (20:20)
[2016-03-04] MEDS ORDERED: Melatonin 3 MG TABLET PO PRN (00:50)
[2016-03-04] MEDS: Insulin LISPRO 300 UNITS/3 ML VIAL SQ SCH ×4 (00:56→21:03)
[2016-03-04] MEDS: Cefepime HCl 2,000 MG in D5% in Water (Mini-Bag+) 100 ML IVPB SCH ×2 (01:13→11:17)
[2016-03-04] MEDS: Ipratropium/Albuterol Neb 3 ML IH SCH ×6 (03:16→23:28)
[2016-03-04] MEDS: Clindamycin 600 MG/50 ML 600 MG/50 ML IV.SOLN IVPB SCH ×3 (06:18→23:59)
[2016-03-04] MEDS: Finasteride 5 MG TABLET PO SCH (08:30)
[2016-03-04] MEDS: Lactobacillus 1 EACH CAP.SPRINK PO SCH (08:30)
[2016-03-04] MEDS: Magnesium Oxide 400 MG TABLET PO SCH ×2 (08:31→21:00)
[2016-03-04] MEDS: Lisinopril 20 MG TABLET PO SCH (08:31)
[2016-03-04] MEDS: GuaiFENesin Liq 200 MG/10 ML UDC PO PRN ×2 (11:18→16:46)
[2016-03-04] MEDS: Menthol 9.1 MG LOZENGE PO PRN ×3 (19:29→23:59)
--- NOTE | 2016-03-04 19:46 | Internal Med Progress Note ---
Date of Encounter: 03/04/16 Time of Encounter: 09:00 - Assessment and plan (1) Acute respiratory failure with hypoxia Current Visit: Yes Status: Acute Assessment and plan: Possible secondary to aspiration pneumonia , CHF , add another dose of Lasix .continue current antibiotic, continue aerosol treatment, modified diet started. Consider evaluation , still doubt about recurrent aspiration will recheck chest x-ray . May consider barium swallow study. Discussed with staff about chest physiotherapy (2) Pneumonia Current Visit: Yes Status: Acute Qualifiers: Pneumonia type: aspiration pneumonia Aspiration pneumonia type: unspecified Laterality: bilateral Lung location: lower lobe of lung Qualified Code(s): J69.0 - Pneumonitis due to inhalation of food and vomit (3) Dysphagia Current Visit: No Status: Chronic Assessment and plan: Per speach therapy .start modified diet. Need reevaluation Qualifiers: Dysphagia type: pharyngeal phase Qualified Code(s): R13.13 - Dysphagia, pharyngeal phase (4) Mental status alteration Current Visit: Yes Status: Acute Assessment and plan: Possible secondary to pneumonia . Per family , progressive confusion over last 3 weeks. Consider MRI brain Qualifiers: Altered mental status type: delirium Qualified Code(s): R41.0 - Disorientation, unspecified (5) Diabetes mellitus Current Visit: Yes Status: Acute Assessment and plan: Add insulin sliding scale, last hemoglobin A1c is more than 9 need home health care on discharge Qualifiers: Diabetes mellitus type: type 2 Diabetes mellitus complication status: with diabetic arthropathy Diabetes mellitus intermediate insulin use: without long term care social worker use Qualified Code(s): E11.610 - Type 2 diabetes mellitus with diabetic neuropathic arthropathy (6) Hypophosphatemia Current Visit: Yes Status: Acute Assessment and plan: Stable now (7) Physical deconditioning Current Visit: Yes Status: Acute Assessment and plan: PT OT - Subjective Interval history: Patient is complaining of productive cough and sob - Constitutional Vitals: Temp Pulse Resp BP Pulse Ox 98.1 F 101 18 111/62 98 03/04/16 15:44 03/04/16 15:44 03/04/16 16:28 03/04/16 15:44 03/04/16 16:28 General appearance: Present: cooperative, A&O X 1, mild distress, pleasant. Absent: answers questions appropriately - Head Head exam: Absent: atraumatic - Respiratory Respiratory exam: Present: decreased breath sounds, prolonged expiratory phase, rhonchi (Diffuse wheezing and crackles bilateral), wheezes. Absent: accessory muscle use - Cardiovascular Cardiovascular exam: Present: RRR, +S1, +S2. Absent: diastolic murmur, gallop, rubs, systolic murmur - GI/Abdominal GI/Abdominal exam: Present: normal bowel sounds, soft, no peritoneal signs. Absent: distended, tenderness - Extremities Exam Extremities exam: Present: warm, radial pulses palpable and symetrical. Absent : calf tenderness, cyanotic, pedal edema - Skin Skin exam: Present: dry, intact Internal Medicine: Result - Labs CBC & Chem 7: 03/03/16 05:17 03/03/16 05:17 - ABG Interpretation ABG results: ABG ABG pH 7.40 pH Units (7.32-7.45) 03/01/16 21:18 ABG pCO2 43 mmHg (35-45) 03/01/16 21:18 ABG pO2 55 mmHg (85-104) L 03/01/16 21:18 ABG O2 Saturation 88 % (95-98) L 03/01/16 21:18 PT/INR, D-dimer PT 12.6 Seconds (9.4-12.1) H 03/01/16 19:46 Consult Discharge Plan - Plan [facility]: [facility] [Primary Care Provider] -
[2016-03-04] MEDS: Melatonin 3 MG TABLET PO SCH (21:00)
[2016-03-04] MEDS ORDERED: *HR* LORazepam 2 MG/ML VIAL IVP ONE (23:20)
[2016-03-04] MEDS: Furosemide 20 MG/2 ML VIAL IVP SCH (23:22)
[2016-03-05] MEDS: Insulin LISPRO 300 UNITS/3 ML VIAL SQ SCH ×4 (00:35→17:55)
[2016-03-05] MEDS: Cefepime HCl 2,000 MG in D5% in Water (Mini-Bag+) 100 ML IVPB SCH ×2 (01:15→12:33)
[2016-03-05] MEDS ORDERED: *HR* LORazepam 2 MG/ML VIAL IVP PRN (02:45)
[2016-03-05] MEDS: Ipratropium/Albuterol Neb 3 ML IH SCH ×6 (03:48→23:41)
[2016-03-05] MEDS: Clindamycin 600 MG/50 ML 600 MG/50 ML IV.SOLN IVPB SCH ×3 (06:13→23:00)
[2016-03-05] MEDS: Magnesium Oxide 400 MG TABLET PO SCH ×2 (08:55→22:17)
[2016-03-05] MEDS: Lisinopril 20 MG TABLET PO SCH (08:55)
[2016-03-05] MEDS: Lactobacillus 1 EACH CAP.SPRINK PO SCH (08:55)
[2016-03-05] MEDS: Finasteride 5 MG TABLET PO SCH (08:55)
[2016-03-05] MEDS: Furosemide 20 MG/2 ML VIAL IVP SCH (08:56)
--- NOTE | 2016-03-05 20:14 | Internal Med Progress Note ---
Date of Encounter: 03/05/16 Time of Encounter: 17:00 - Assessment and plan (1) Acute respiratory failure with hypoxia Current Visit: Yes Status: Acute Assessment and plan: Possible secondary to aspiration pneumonia ,Chest X ray , pulmonary congestion, continue Lasix , tapered down antibiotic (2) Pneumonia Current Visit: Yes Status: Acute Qualifiers: Pneumonia type: aspiration pneumonia Aspiration pneumonia type: unspecified Laterality: bilateral Lung location: lower lobe of lung Qualified Code(s): J69.0 - Pneumonitis due to inhalation of food and vomit (3) Dysphagia Current Visit: No Status: Chronic Qualifiers: Dysphagia type: pharyngeal phase Qualified Code(s): R13.13 - Dysphagia, pharyngeal phase (4) Mental status alteration Current Visit: Yes Status: Acute Assessment and plan: CAT scan pre-and no evidence of stroke or bleeding. Family stated that the patient had progressive dementia over last 3 years recently with behavioral problem worsening of confusion lately. Qualifiers: Altered mental status type: delirium Qualified Code(s): R41.0 - Disorientation, unspecified (5) Diabetes mellitus Current Visit: Yes Status: Acute Qualifiers: Diabetes mellitus type: type 2 Diabetes mellitus complication status: with diabetic arthropathy Diabetes mellitus intermediate manager insulin use: without nursing home use Qualified Code(s): E11.610 - Type 2 diabetes mellitus with diabetic neuropathic arthropathy (6) Hypophosphatemia Current Visit: Yes Status: Acute (7) Physical deconditioning Current Visit: Yes Status: Acute Assessment and plan: Patient need short-term rehabilitation with his physical deconditioning and dementia consult social surface PT OT (8) Dementia with behavioral disturbance Current Visit: Yes Status: Acute Assessment and plan: Add Aricept and add SSRI discussed with Daughter , She agreed Qualifiers: Dementia type: Alzheimer's disease Alzheimer's disease onset: other onset Qualified Code(s): G30.8 - Other Alzheimer's disease; F02.81 - Dementia in other diseases classified elsewhere with behavioral disturbance (9) Fall Current Visit: Yes Status: Acute Assessment and plan: Discontinue any benzodiazepine CAT scan brain negative x-ray elbow chest negative for any fracture Qualifiers: Qualified Code(s): W19.XXXA - Unspecified fall, initial encounter - Time Spent With Patient I had family meeting discussed patient condition at bedside - Subjective Interval history: Patient is complaining of productive cough and sob - Constitutional Vitals: Temp Pulse Resp BP Pulse Ox 99.7 F H 86 20 120/76 97 03/05/16 16:00 03/05/16 19:15 03/05/16 19:15 03/05/16 19:15 03/05/16 19:15 General appearance: Present: cooperative, A&O X 1, mild distress, pleasant. Absent: answers questions appropriately Internal Medicine: Result - Labs CBC & Chem 7: 03/03/16 05:17 03/03/16 05:17 - ABG Interpretation ABG results: ABG ABG pH 7.40 pH Units (7.32-7.45) 03/01/16 21:18 ABG pCO2 43 mmHg (35-45) 03/01/16 21:18 ABG pO2 55 mmHg (85-104) L 03/01/16 21:18 ABG O2 Saturation 88 % (95-98) L 03/01/16 21:18 PT/INR, D-dimer PT 12.6 Seconds (9.4-12.1) H 03/01/16 19:46 - Impressions Impressions Head CT 03/05/16 14:08 IMPRESSION: No acute intracranial abnormality. Moderate paranasal sinus disease. Fluid within both maxillary sinuses suggests acute inflammation. Elbow X-Ray 03/05/16 14:11 IMPRESSION: 1. No acute findings in the left elbow. 2. Bony demineralization. Chest X-Ray 03/05/16 14:30 IMPRESSION: Stable perihilar vascular congestion without overt failure or focal infiltrate. 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
[2016-03-05 20:49] LABS: Basophils # 0.1 K/mcL (0.0-0.2); Basophils % 0.4 %; Eosinophils # 0.5 K/mcL (0.0-0.6); Eosinophils % 4.1 %; Hematocrit 29.4 % (37.5-50.1); Hemoglobin 10.1 g/dL (12.9-16.9); Immature Granulocytes % 1.9 % (0-4); Lymphocytes # 2.1 K/mcL (0.6-4.6); Lymphocytes % 16.3 %; Mean Corpuscular HGB Conc 34.4 g/dL (31.6-35.5); Mean Corpuscular Hemoglobin 29.7 pg (28.0-33.3); Mean Corpuscular Volume 86.5 fL (83.0-100.0); Monocytes % 8.2 %; Neutrophils # 8.7 K/mcL (1.6-8.9); Platelet Count 236 K/mcL (140-400); Red Cell Distribution Width 11.9 % (11.5-14.5); Segmented Neutrophils % 69.1 %
[2016-03-05 21:07] LABS: Calcium 8.5 mg/dL (8.6-10.8); Magnesium 1.8 mg/dL (1.6-2.6); Potassium 3.8 mEq/L (3.5-4.5)
[2016-03-05] MEDS: Levofloxacin 750 MG/150 ML 750 MG/150 ML BAG IVPB SCH (21:12)
[2016-03-05 21:14] LABS: Phosphorous 4.3 mg/dL (2.3-4.7)
[2016-03-05] MEDS: Mirtazapine 15 MG TABLET PO SCH (22:17)
[2016-03-05] MEDS: Melatonin 3 MG TABLET PO SCH (22:17)
[2016-03-06] MEDS: Insulin LISPRO 300 UNITS/3 ML VIAL SQ SCH ×4 (01:26→18:39)
[2016-03-06] MEDS: Cefepime HCl 2,000 MG in D5% in Water (Mini-Bag+) 100 ML IVPB SCH ×2 (01:33→12:22)
[2016-03-06] MEDS: Ipratropium/Albuterol Neb 3 ML IH SCH ×6 (04:49→23:55)
[2016-03-06] MEDS: Clindamycin 600 MG/50 ML 600 MG/50 ML IV.SOLN IVPB SCH ×3 (06:19→23:31)
[2016-03-06] MEDS: Furosemide 20 MG/2 ML VIAL IVP SCH (09:24)
[2016-03-06] MEDS: Finasteride 5 MG TABLET PO SCH (09:24)
[2016-03-06] MEDS: Lactobacillus 1 EACH CAP.SPRINK PO SCH (09:24)
[2016-03-06] MEDS: Lisinopril 20 MG TABLET PO SCH (09:25)
[2016-03-06] MEDS: Magnesium Oxide 400 MG TABLET PO SCH ×2 (09:25→19:56)
--- NOTE | 2016-03-06 14:02 | Internal Med Progress Note ---
Date of Encounter: 03/06/16 Time of Encounter: 12:00 - Assessment and plan (1) Acute respiratory failure with hypoxia Current Visit: Yes Status: Acute Assessment and plan: Possible secondary to pneumonia, CHF , improving , wean oxygen as tolerated (2) Pneumonia Current Visit: Yes Status: Acute Qualifiers: Pneumonia type: aspiration pneumonia Aspiration pneumonia type: unspecified Laterality: bilateral Lung location: lower lobe of lung Qualified Code(s): J69.0 - Pneumonitis due to inhalation of food and vomit (3) Dysphagia Current Visit: No Status: Chronic Assessment and plan: Follow speech therapy instruction need rehabilitation for further monitoring of his condition . Social service surface is in the process of arranging rehabilitation Qualifiers: Dysphagia type: pharyngeal phase Qualified Code(s): R13.13 - Dysphagia, pharyngeal phase (4) Mental status alteration Current Visit: Yes Status: Acute Qualifiers: Altered mental status type: delirium Qualified Code(s): R41.0 - Disorientation, unspecified (5) Diabetes mellitus Current Visit: Yes Status: Acute Assessment and plan: Continue current medication close monitoring of his sugar . Last hemoglobin A1c was high , Need to close monitoring under rehabilitation setting Qualifiers: Diabetes mellitus type: type 2 Diabetes mellitus complication status: with diabetic arthropathy Diabetes mellitus adjunct faculty for medical terminology insulin use: without adjunct faculty for medical terminology use Qualified Code(s): E11.610 - Type 2 diabetes mellitus with diabetic neuropathic arthropathy (6) Hypophosphatemia Current Visit: Yes Status: Acute (7) Physical deconditioning Current Visit: Yes Status: Acute Assessment and plan: Patient need short-term rehabilitation with his physical deconditioning and dementia social surface on board , Continue PT OT (8) Dementia with behavioral disturbance Current Visit: Yes Status: Acute Assessment and plan: Tolerated Aricept and add SSRI , Continue current medication on discharge Qualifiers: Dementia type: Alzheimer's disease Alzheimer's disease onset: other onset Qualified Code(s): G30.8 - Other Alzheimer's disease; F02.81 - Dementia in other diseases classified elsewhere with behavioral disturbance (9) Fall Current Visit: Yes Status: Acute Assessment and plan: Avoid any any benzodiazepine CAT scan brain negative x-ray elbow chest negative for any fracture Qualifiers: Qualified Code(s): W19.XXXA - Unspecified fall, initial encounter - Subjective Interval history: Patient is more cooperative today. He still has productive cough. Alert oriented 1. Onset question more appropriate. Head quite night last night no agitation - Constitutional Vitals: Temp Pulse Resp BP Pulse Ox 97.7 F 91 20 102/76 92 L 03/06/16 11:08 03/06/16 11:08 03/06/16 11:32 03/06/16 11:08 03/06/16 11:32 General appearance: Present: cooperative, A&O X 1, mild distress, pleasant. Absent: answers questions appropriately - Neck Neck exam general surgery: Present: supple, trachea midline. Absent: lymphadenopathy - Respiratory Respiratory exam: Present: decreased breath sounds, CTAB, prolonged expiratory phase, rales (Inspiratory crackles and wheezing bilateral ), wheezes. Absent: accessory muscle use, rhonchi - Cardiovascular Cardiovascular exam: Present: RRR, +S1, +S2. Absent: diastolic murmur, gallop, rubs, systolic murmur - GI/Abdominal GI/Abdominal exam: Present: normal bowel sounds, soft, no peritoneal signs. Absent: distended, tenderness - Extremities Exam Extremities exam: Present: warm, radial pulses palpable and symetrical. Absent : calf tenderness, cyanotic, pedal edema - Psychiatric Additional comments: His mood markedly improved compared to yesterday, he answers questions appropriately Internal Medicine: Result - Labs CBC & Chem 7: 03/05/16 20:34 03/05/16 20:34 Labs: Short CBC 03/05/16 Range/Units 20:34 WBC 12.6 H (4.3-11.1) K/mcL Hgb 10.1 L (12.9-16.9) g/dL Hct 29.4 L (37.5-50.1) % Plt Count 236 (140-400) K/mcL Neutrophils # 8.7 (1.6-8.9) K/mcL BMP 03/05/16 20:34 Sodium 138 Potassium 3.8 Chloride 104 Carbon Dioxide 26 BUN 21 Creatinine 1.48 H Glucose 152 H Calcium 8.5 L - ABG Interpretation ABG results: ABG ABG pH 7.40 pH Units (7.32-7.45) 03/01/16 21:18 ABG pCO2 43 mmHg (35-45) 03/01/16 21:18 ABG pO2 55 mmHg (85-104) L 03/01/16 21:18 ABG O2 Saturation 88 % (95-98) L 03/01/16 21:18 PT/INR, D-dimer PT 12.6 Seconds (9.4-12.1) H 03/01/16 19:46 - Impressions Impressions Head CT 03/05/16 14:08 IMPRESSION: No acute intracranial abnormality. Moderate paranasal sinus disease. Fluid within both maxillary sinuses suggests acute inflammation. D/ / Bethany Meza Cha, MD / Bethany Meza Cha, MD Interpreting Provider: Bethany Meza Cha, MD Elbow X-Ray 03/05/16 14:11 IMPRESSION: 1. No acute findings in the left elbow. 2. Bony demineralization. D/ / Mohan Veliz MD / Mohan Veliz MD Interpreting Provider: Mohan Veliz MD Chest X-Ray 03/05/16 14:30 IMPRESSION: Stable perihilar vascular congestion without overt failure or focal infiltrate. 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
[2016-03-06] MEDS: Mirtazapine 15 MG TABLET PO SCH (19:53)
[2016-03-06] MEDS: *HR* HYDROcodone/Acet 5/325 mg TABLET PO PRN (19:55)
[2016-03-06] MEDS: Melatonin 3 MG TABLET PO SCH (19:56)
[2016-03-07] MEDS: Cefepime HCl 2,000 MG in D5% in Water (Mini-Bag+) 100 ML IVPB SCH ×2 (00:24→12:53)
[2016-03-07] MEDS: Insulin LISPRO 300 UNITS/3 ML VIAL SQ SCH ×4 (00:25→17:54)
[2016-03-07] MEDS: Ipratropium/Albuterol Neb 3 ML IH SCH ×5 (03:48→19:51)
[2016-03-07] MEDS: *HR* HYDROcodone/Acet 5/325 mg TABLET PO PRN ×2 (03:54→17:58)
[2016-03-07] MEDS: Clindamycin 600 MG/50 ML 600 MG/50 ML IV.SOLN IVPB SCH ×3 (06:14→23:35)
[2016-03-07] MEDS: Lactobacillus 1 EACH CAP.SPRINK PO SCH (12:35)
[2016-03-07] MEDS: Finasteride 5 MG TABLET PO SCH (12:35)
[2016-03-07] MEDS: Magnesium Oxide 400 MG TABLET PO SCH ×2 (12:36→20:31)
[2016-03-07] MEDS: Lisinopril 20 MG TABLET PO SCH (12:36)
[2016-03-07] MEDS: Furosemide 20 MG/2 ML VIAL IVP SCH (12:38)
--- NOTE | 2016-03-07 15:16 | Internal Med Progress Note ---
Date of Encounter: 03/07/16 Time of Encounter: 15:12 - Assessment and plan (1) Acute respiratory failure with hypoxia Current Visit: Yes Status: Acute Assessment and plan: Acute hypoxic respiratory failure secondary to sepsis due to aspiration pneumonia, worrisome for possible healthcare associated pneumonia present upon admission Cefepime and clindamycin day 6, Levaquin day 5 Aspiration precautions wean oxygen as tolerated Mechanical modified diet Awaiting placement (2) Dementia with behavioral disturbance Current Visit: Yes Status: Acute Assessment and plan: Tolerated Aricept and SSRI , Continue current medication on discharge Qualifiers: Dementia type: Alzheimer's disease Alzheimer's disease onset: other onset Qualified Code(s): G30.8 - Other Alzheimer's disease; F02.81 - Dementia in other diseases classified elsewhere with behavioral disturbance (3) Diabetes mellitus Current Visit: Yes Status: Acute Assessment and plan: Continue insulin sliding scale Qualifiers: Diabetes mellitus type: type 2 Diabetes mellitus complication status: with diabetic arthropathy Diabetes mellitus intermediate school teacher insulin use: without intermediate school teacher use Qualified Code(s): E11.610 - Type 2 diabetes mellitus with diabetic neuropathic arthropathy (4) Pneumonia Current Visit: Yes Status: Acute Qualifiers: Pneumonia type: due to unspecified organism Laterality: bilateral Lung location: lower lobe of lung Qualified Code(s): J18.9 - Pneumonia, unspecified organism (5) Sepsis Current Visit: Yes Status: Acute Qualifiers: Sepsis type: sepsis due to unspecified organism Qualified Code(s): A41.9 - Sepsis, unspecified organism (6) CAD (coronary artery disease) Current Visit: No Status: Chronic Assessment and plan: Continue atenolol Qualifiers: Coronary Disease-Associated Artery/Lesion type: [place] artery [place] vs. transplanted heart: [place] heart Associated angina: without angina Qualified Code(s): I25.10 - Atherosclerotic heart disease of [place] coronary artery without angina pectoris (7) CHF (congestive heart failure) Current Visit: No Status: Chronic Assessment and plan: Unclear whether this is systolic or diastolic Continue Lasix Qualifiers: Congestive heart failure type: unspecified congestive heart failure type Congestive heart failure chronicity: unspecified congestive heart failure chronicity Qualified Code(s): I50.9 - Heart failure, unspecified (8) Dysphagia Current Visit: No Status: Chronic Assessment and plan: Follow speech therapy instruction need rehabilitation for further monitoring of his condition . Social service surface is in the process of arranging rehabilitation Qualifiers: Dysphagia type: pharyngeal phase Qualified Code(s): R13.13 - Dysphagia, pharyngeal phase (9) GERD (gastroesophageal reflux disease) Current Visit: No Status: Chronic Assessment and plan: Stable on omeprazole High risk of aspiration Qualifiers: Esophagitis presence: esophagitis presence not specified Qualified Code(s) : K21.9 - Gastro-esophageal reflux disease without esophagitis - Time Spent With Patient Greater than 35 minutes - Subjective Interval history: She is oriented only to person: Denies any shortness of breath or chest pain at the moment, no abdominal pain, no dysuria or diarrhea. Apparently earlier today he choked his food again. - Constitutional Vitals: Temp Pulse Resp BP Pulse Ox 98.1 F 82 16 93/61 95 03/07/16 08:00 03/07/16 08:00 03/07/16 11:23 03/07/16 08:00 03/07/16 11:23 General appearance: Present: cooperative, A&O X 1, mild distress, pleasant. Absent: answers questions appropriately - Head Head exam: Present: atraumatic, normocephalic - Eye Eye exam: Present: PERRL, conjuntiva pink, sclera anicteric Pupils: Present: PERRL - Neck Neck exam general surgery: Present: supple, trachea midline. Absent: lymphadenopathy - Respiratory Respiratory exam: Present: CTAB, rales (Bibasilar crackles without wheezing). Absent: accessory muscle use, rhonchi, wheezes - Cardiovascular Cardiovascular exam: Present: RRR, +S1, +S2. Absent: diastolic murmur, gallop, rubs, systolic murmur - GI/Abdominal GI/Abdominal exam: Present: normal bowel sounds, soft, no peritoneal signs. Absent: distended, tenderness - Extremities Exam Extremities exam: Present: warm, radial pulses palpable and symetrical. Absent : calf tenderness, cyanotic, pedal edema - Neurological Exam Neurological exam: Present: CN II-XII intact, no focal deficits. Absent: oriented X3, pronater drift, facial droop, speech deficit - Skin Skin exam: Present: dry, intact Internal Medicine: Result - Labs CBC & Chem 7: 03/05/16 20:34 03/05/16 20:34 - ABG Interpretation ABG results: ABG ABG pH 7.40 pH Units (7.32-7.45) 03/01/16 21:18 ABG pCO2 43 mmHg (35-45) 03/01/16 21:18 ABG pO2 55 mmHg (85-104) L 03/01/16 21:18 ABG O2 Saturation 88 % (95-98) L 03/01/16 21:18 PT/INR, D-dimer PT 12.6 Seconds (9.4-12.1) H 03/01/16 19:46 - Impressions Impressions Ribs X-Ray 03/06/16 17:30 IMPRESSION: Equivocal, for nondisplaced left 10th rib fracture. 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
[2016-03-07] MEDS: Aspirin 81 MG TAB.CHEW PO SCH (17:52)
[2016-03-07] MEDS: Melatonin 3 MG TABLET PO SCH (20:31)
[2016-03-07] MEDS: Levofloxacin 750 MG/150 ML 750 MG/150 ML BAG IVPB SCH (20:32)
[2016-03-07] MEDS: Mirtazapine 15 MG TABLET PO SCH (20:33)
[2016-03-08] MEDS: *HR* HYDROcodone/Acet 5/325 mg TABLET PO PRN ×3 (00:53→14:48)
[2016-03-08] MEDS: Cefepime HCl 2,000 MG in D5% in Water (Mini-Bag+) 100 ML IVPB SCH ×2 (00:53→12:32)
[2016-03-08] MEDS: Ipratropium/Albuterol Neb 3 ML IH SCH ×7 (00:57→23:52)
[2016-03-08] MEDS: Insulin LISPRO 300 UNITS/3 ML VIAL SQ SCH ×4 (01:08→17:45)
[2016-03-08] MEDS: Clindamycin 600 MG/50 ML 600 MG/50 ML IV.SOLN IVPB SCH ×3 (06:40→23:37)
[2016-03-08 07:11] LABS: Calcium 8.7 mg/dL (8.6-10.8); Potassium 3.8 mEq/L (3.5-4.5)
[2016-03-08] MEDS: Magnesium Oxide 400 MG TABLET PO SCH ×2 (09:11→21:17)
[2016-03-08] MEDS: Lisinopril 20 MG TABLET PO SCH (09:11)
[2016-03-08] MEDS: Finasteride 5 MG TABLET PO SCH (09:12)
[2016-03-08] MEDS: Aspirin 81 MG TAB.CHEW PO SCH (09:12)
[2016-03-08] MEDS: Lactobacillus 1 EACH CAP.SPRINK PO SCH (09:12)
[2016-03-08] MEDS: Furosemide 20 MG/2 ML VIAL IVP SCH (09:12)
--- NOTE | 2016-03-08 15:34 | Internal Med Progress Note ---
Date of Encounter: 03/08/16 Time of Encounter: 15:34 - Assessment and plan (1) Acute respiratory failure with hypoxia Current Visit: Yes Status: Acute Assessment and plan: Acute hypoxic respiratory failure secondary to acute COPD exacerbation due to sepsis from aspiration pneumonia, worrisome for possible healthcare associated pneumonia present upon admission Cefepime and clindamycin day 7, Levaquin day 6 Aspiration precautions wean oxygen as tolerated Mechanical modified diet Awaiting placement (2) Acute on chronic renal failure Current Visit: Yes Status: Acute Assessment and plan: hold lasix start NS at 60 ml /h (3) Dementia with behavioral disturbance Current Visit: Yes Status: Acute Assessment and plan: Tolerated Aricept and SSRI , Continue current medication on discharge Qualifiers: Dementia type: Alzheimer's disease Alzheimer's disease onset: other onset Qualified Code(s): G30.8 - Other Alzheimer's disease; F02.81 - Dementia in other diseases classified elsewhere with behavioral disturbance (4) Diabetes mellitus Current Visit: Yes Status: Acute Assessment and plan: Continue insulin sliding scale Qualifiers: Diabetes mellitus type: type 2 Diabetes mellitus complication status: with diabetic arthropathy Diabetes mellitus snf insulin use: without tank terminal gauger use Qualified Code(s): E11.610 - Type 2 diabetes mellitus with diabetic neuropathic arthropathy (5) Pneumonia Current Visit: Yes Status: Acute Qualifiers: Pneumonia type: due to unspecified organism Laterality: bilateral Lung location: lower lobe of lung Qualified Code(s): J18.9 - Pneumonia, unspecified organism (6) Sepsis Current Visit: Yes Status: Acute Qualifiers: Sepsis type: sepsis due to unspecified organism Qualified Code(s): A41.9 - Sepsis, unspecified organism (7) CAD (coronary artery disease) Current Visit: No Status: Chronic Assessment and plan: Continue atenolol Qualifiers: Coronary Disease-Associated Artery/Lesion type: [place] artery [place] vs. transplanted heart: [place] heart Associated angina: without angina Qualified Code(s): I25.10 - Atherosclerotic heart disease of [place] coronary artery without angina pectoris (8) CHF (congestive heart failure) Current Visit: No Status: Chronic Assessment and plan: Unclear whether this is systolic or diastolic hold Lasix due to ARF Qualifiers: Congestive heart failure type: unspecified congestive heart failure type Congestive heart failure chronicity: unspecified congestive heart failure chronicity Qualified Code(s): I50.9 - Heart failure, unspecified (9) Dysphagia Current Visit: No Status: Chronic Assessment and plan: Follow speech therapy instruction need rehabilitation for further monitoring of his condition . Social service surface is in the process of arranging rehabilitation Qualifiers: Dysphagia type: pharyngeal phase Qualified Code(s): R13.13 - Dysphagia, pharyngeal phase (10) GERD (gastroesophageal reflux disease) Current Visit: No Status: Chronic Assessment and plan: Stable on omeprazole High risk of aspiration Qualifiers: Esophagitis presence: esophagitis presence not specified Qualified Code(s) : K21.9 - Gastro-esophageal reflux disease without esophagitis - Subjective Interval history: He is oriented only to person: Unable to perfomr a complete review of systems, complains of pain at the tip of his penis where the Henderson is. Denies any shortness of breath or chest pain at the moment, no abdominal pain, no dysuria or diarrhea. He choked on his food again on 03/07/16. - Constitutional Vitals: Temp Pulse Resp BP Pulse Ox 97.8 F 95 19 106/61 92 L 03/08/16 15:23 03/08/16 15:23 03/08/16 15:23 03/08/16 15:23 03/08/16 15:23 General appearance: Present: cooperative, A&O X 1, mild distress, pleasant. Absent: answers questions appropriately - Head Head exam: Present: atraumatic, normocephalic - Eye Eye exam: Present: PERRL, conjuntiva pink, sclera anicteric Pupils: Present: PERRL - Neck Neck exam general surgery: Present: supple, trachea midline. Absent: lymphadenopathy - Respiratory Respiratory exam: Present: CTAB, wheezes (diffuse wheezing). Absent: accessory muscle use, rales, rhonchi - Cardiovascular Cardiovascular exam: Present: RRR, +S1, +S2. Absent: diastolic murmur, gallop, rubs, systolic murmur - GI/Abdominal GI/Abdominal exam: Present: normal bowel sounds, soft, no peritoneal signs. Absent: distended, tenderness - Extremities Exam Extremities exam: Present: warm, radial pulses palpable and symetrical. Absent : calf tenderness, cyanotic, pedal edema Additional comments: henderson catheter in place - Neurological Exam Neurological exam: Present: CN II-XII intact, no focal deficits. Absent: oriented X3, pronater drift, facial droop, speech deficit - Skin Skin exam: Present: dry, intact Internal Medicine: Result - Labs CBC & Chem 7: 03/05/16 20:34 03/08/16 06:39 Labs: BMP 03/08/16 06:39 Sodium 134 L Potassium 3.8 Chloride 99 Carbon Dioxide 27 BUN 25 Creatinine 1.90 H Glucose 197 H Calcium 8.7 - ABG Interpretation ABG results: ABG ABG pH 7.40 pH Units (7.32-7.45) 03/01/16 21:18 ABG pCO2 43 mmHg (35-45) 03/01/16 21:18 ABG pO2 55 mmHg (85-104) L 03/01/16 21:18 ABG O2 Saturation 88 % (95-98) L 03/01/16 21:18 PT/INR, D-dimer PT 12.6 Seconds (9.4-12.1) H 03/01/16 19:46 Consult Discharge Plan - Plan Instructions: Heart Failure (DC), Acute Respiratory Distress Syndrome (DC), Urinary Tract Infection in Men (DC), Diabetes Mellitus Type 2 in Adults (DC), Sepsis (DC), Chronic Hypertension (DC), Pneumonia (DC), Dementia, Psychologist Social (GEN) [facility]: [facility] [Primary Care Provider] -
[2016-03-08] MEDS ORDERED: 0.9 % Sodium Chloride 1,000 ML IVC SCH (15:45)
[2016-03-08] MEDS: methylPREDNISolone 125 MG/2 ML VIAL IV SCH (17:14)
[2016-03-08] MEDS: Melatonin 3 MG TABLET PO SCH (21:17)
[2016-03-08] MEDS: Mirtazapine 15 MG TABLET PO SCH (21:18)
[2016-03-09] MEDS: methylPREDNISolone 125 MG/2 ML VIAL IV SCH ×3 (00:43→17:34)
[2016-03-09] MEDS: Cefepime HCl 2,000 MG in D5% in Water (Mini-Bag+) 100 ML IVPB SCH ×2 (00:43→12:12)
[2016-03-09] MEDS: Insulin LISPRO 300 UNITS/3 ML VIAL SQ SCH ×4 (00:44→17:51)
[2016-03-09] MEDS: Ipratropium/Albuterol Neb 3 ML IH SCH ×6 (04:11→23:11)
[2016-03-09 05:24] LABS: VBG HCO3 29.2 mEq/L (21-27); VBG PH 7.46 pH Units (7.32-7.42)
[2016-03-09 05:25] LABS: Hematocrit 28.7 % (37.5-50.1); Hemoglobin 9.8 g/dL (12.9-16.9); Mean Corpuscular HGB Conc 34.1 g/dL (31.6-35.5); Mean Corpuscular Hemoglobin 29.7 pg (28.0-33.3); Mean Platelet Volume 9.4 fL (9.4-12.4); Platelet Count 278 K/mcL (140-400)
[2016-03-09 05:38] LABS: Calcium 8.5 mg/dL (8.6-10.8); Magnesium 2.1 mg/dL (1.6-2.6); Phosphorous 4.2 mg/dL (2.3-4.7); Potassium 4.8 mEq/L (3.5-4.5)
[2016-03-09 05:49] LABS: Ionized Calcium 1.11 mmol/L (1.15-1.35)
[2016-03-09] MEDS: Clindamycin 600 MG/50 ML 600 MG/50 ML IV.SOLN IVPB SCH ×3 (06:05→22:36)
[2016-03-09] MEDS ORDERED: Calcium Gluconate 2,000 MG in D5% in Water 100 ML IVPB ONE (06:16)
[2016-03-09] MEDS: Finasteride 5 MG TABLET PO SCH (08:58)
[2016-03-09] MEDS: Magnesium Oxide 400 MG TABLET PO SCH ×2 (08:59→22:21)
[2016-03-09] MEDS: Lisinopril 20 MG TABLET PO SCH (08:59)
[2016-03-09] MEDS: Lactobacillus 1 EACH CAP.SPRINK PO SCH (08:59)
[2016-03-09] MEDS: Aspirin 81 MG TAB.CHEW PO SCH (09:00)
[2016-03-09] MEDS: *HR* HYDROcodone/Acet 5/325 mg TABLET PO PRN (09:00)
[2016-03-09] MEDS ORDERED: 0.9 % Sodium Chloride 1,000 ML IVC SCH (14:15)
--- NOTE | 2016-03-09 14:15 | Internal Med Progress Note ---
Date of Encounter: 03/09/16 Time of Encounter: 14:13 - Assessment and plan (1) Acute respiratory failure with hypoxia Current Visit: Yes Status: Acute Assessment and plan: Acute hypoxic respiratory failure secondary to acute COPD exacerbation due to sepsis from aspiration pneumonia, worrisome for possible healthcare associated pneumonia present upon admission discontinue Cefepime day 8 and Levaquin day 7 COntinue clindamycin day 8 Aspiration precautions wean oxygen as tolerated Mechanical modified diet Awaiting placement (2) Acute on chronic renal failure Current Visit: Yes Status: Acute Assessment and plan: Likely 2ry to Henderson obstruction, creatinine is sligthly worse IMproved clinically after replacing henderson (prior Henderson did not have any return and had blood clots) hold lasix continue NS at 60 ml /h (3) Dementia with behavioral disturbance Current Visit: Yes Status: Acute Assessment and plan: Tolerated Aricept and SSRI , Continue current medication on discharge Qualifiers: Dementia type: Alzheimer's disease Alzheimer's disease onset: other onset Qualified Code(s): G30.8 - Other Alzheimer's disease; F02.81 - Dementia in other diseases classified elsewhere with behavioral disturbance (4) Diabetes mellitus Current Visit: Yes Status: Acute Assessment and plan: Continue insulin sliding scale Qualifiers: Diabetes mellitus type: type 2 Diabetes mellitus complication status: with diabetic arthropathy Diabetes mellitus terminal manager insulin use: without snf use Qualified Code(s): E11.610 - Type 2 diabetes mellitus with diabetic neuropathic arthropathy (5) Pneumonia Current Visit: Yes Status: Acute Qualifiers: Pneumonia type: due to unspecified organism Laterality: bilateral Lung location: lower lobe of lung Qualified Code(s): J18.9 - Pneumonia, unspecified organism (6) Sepsis Current Visit: Yes Status: Acute Qualifiers: Sepsis type: sepsis due to unspecified organism Qualified Code(s): A41.9 - Sepsis, unspecified organism (7) CAD (coronary artery disease) Current Visit: No Status: Chronic Assessment and plan: Continue atenolol Qualifiers: Coronary Disease-Associated Artery/Lesion type: [place] artery [place] vs. transplanted heart: [place] heart Associated angina: without angina Qualified Code(s): I25.10 - Atherosclerotic heart disease of [place] coronary artery without angina pectoris (8) CHF (congestive heart failure) Current Visit: No Status: Chronic Assessment and plan: Unclear whether this is systolic or diastolic ECHO caridogram report pending hold Lasix due to ARF Qualifiers: Congestive heart failure type: unspecified congestive heart failure type Congestive heart failure chronicity: unspecified congestive heart failure chronicity Qualified Code(s): I50.9 - Heart failure, unspecified (9) Dysphagia Current Visit: No Status: Chronic Assessment and plan: Follow speech therapy instruction need rehabilitation for further monitoring of his condition . Social service surface is in the process of arranging rehabilitation Qualifiers: Dysphagia type: pharyngeal phase Qualified Code(s): R13.13 - Dysphagia, pharyngeal phase (10) GERD (gastroesophageal reflux disease) Current Visit: No Status: Chronic Assessment and plan: Stable on omeprazole High risk of aspiration Qualifiers: Esophagitis presence: esophagitis presence not specified Qualified Code(s) : K21.9 - Gastro-esophageal reflux disease without esophagitis - Time Spent With Patient Greater than 35 minutes - Subjective Interval history: doing better clinically. He is oriented only to person: Unable to perform a complete review of systems, complains of mild pain at the tip of his penis where the Henderson is. Denies any shortness of breath or chest pain at the moment, no abdominal pain, no dysuria or diarrhea. He choked on his food again on 03/07/16. - Constitutional Vitals: Temp Pulse Resp BP Pulse Ox 97.8 F 85 16 128/60 98 03/09/16 11:49 03/09/16 11:49 03/09/16 11:49 03/09/16 11:49 03/09/16 11:49 General appearance: Present: cooperative, A&O X 1, mild distress, pleasant. Absent: answers questions appropriately - Head Head exam: Present: atraumatic, normocephalic - Eye Eye exam: Present: PERRL, conjuntiva pink, sclera anicteric Pupils: Present: PERRL - Neck Neck exam general surgery: Present: supple, trachea midline. Absent: lymphadenopathy - Respiratory Respiratory exam: Present: decreased breath sounds, CTAB. Absent: accessory muscle use, rales, rhonchi, wheezes - Cardiovascular Cardiovascular exam: Present: RRR, +S1, +S2. Absent: diastolic murmur, gallop, rubs, systolic murmur - GI/Abdominal GI/Abdominal exam: Present: normal bowel sounds, soft, no peritoneal signs. Absent: distended, tenderness Additional comments: Henderson catheter in place - Extremities Exam Extremities exam: Present: warm, radial pulses palpable and symetrical. Absent : calf tenderness, cyanotic, pedal edema - Neurological Exam Neurological exam: Present: CN II-XII intact, no focal deficits. Absent: oriented X3, pronater drift, facial droop, speech deficit - Skin Skin exam: Present: dry, intact Internal Medicine: Result - Labs CBC & Chem 7: 03/09/16 04:45 03/09/16 04:45 Labs: Short CBC 03/09/16 Range/Units 04:45 WBC 11.0 (4.3-11.1) K/mcL Hgb 9.8 L (12.9-16.9) g/dL Hct 28.7 L (37.5-50.1) % Plt Count 278 (140-400) K/mcL BMP 03/09/16 04:45 Sodium 132 L Potassium 4.8 H D Chloride 100 Carbon Dioxide 23 BUN 30 H Creatinine 2.05 H Glucose 359 H Calcium 8.5 L Cardiac Enzymes 03/09/16 Range/Units 04:45 Troponin I 0.02 (0-0.03) ng/mL - ABG Interpretation ABG results: ABG ABG pH 7.40 pH Units (7.32-7.45) 03/01/16 21:18 ABG pCO2 43 mmHg (35-45) 03/01/16 21:18 ABG pO2 55 mmHg (85-104) L 03/01/16 21:18 ABG O2 Saturation 88 % (95-98) L 03/01/16 21:18 PT/INR, D-dimer PT 12.6 Seconds (9.4-12.1) H 03/01/16 19:46 - Impressions Impressions Chest X-Ray 03/09/16 04:27 IMPRESSION: No acute process. 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
--- NOTE | 2016-03-09 15:12 | ECHO - Doppler Report ---
Echocardiogram Name: Byron Edge Date of Study: 03/09/2016 Date: 1935 Ht: 67.0 in Medical Record#: [id number] Age: 80 Wt: 169.0 lb Gender: Male BSA: 1.88 Order #: [id number] Location: [facility] Room #: [id number] Reading Physician: Lyric Prasad DO Compounder: Twila Sepulveda Ordering Physician: Clint Sanchez DO Primary Physician: [facility] Indications: NSVT Impressions: Technically challenging study. Patient sat upright in a chair throughout exam. LVEF 50%. Normal left ventricular size and systolic function. There is evidence of mild diastolic dysfunction of the left ventricle. Dilated RV with normal function. Severely calcified aortic valve that is not well visualized in all views. Valve leaflets appear to demonstrate severe reduction in leaflet excursion. Doppler measurements suggest moderately severe aortic stenosis. Consider repeat Limited study for re-evaluation of valve if patient complies with positioning or alternatively a MORGAN if clinically appropriate. Mild mitral regurgitation. IVC not well evaluated to complete measurement for RVSP. Based on TR gradient, there is no pulmonary hypertension. Left Ventricular Wall Motion: Rest Echo Findings The mid inferior septal, basal inferior septal and basal anterior septal benjamin were hypokinetic. All other wall segments showed normal motion. Findings: Study Quality * Technically sub-optimal due to clinical status. Study performed on patient while sitting in a chair. Patient would not get in bed. ECG Findings * Sinus rhythm with BBB. Aortic Valve * No aortic regurgitation. * Aortic valve not well visualized. * Moderate-severe aortic stenosis. PV 2.8m/s, MG 15 mmHg, DI 0.32, YANIRA 1.0cm2 Mitral Valve * Mild mitral regurgitation. * Mild mitral annular calcification * Mildly calcified mitral valve leaflets. * No mitral stenosis. Tricuspid Valve * Tricuspid valve not well visualized. * No tricuspid regurgitation. Pulmonic Valve * Pulmonic valve is not well visualized. * No pulmonic stenosis. * No pulmonic regurgitation. Pulmonary Artery * Pulmonary artery not well visualized. Right Ventricle * Dilated RV with normal function. Left Atrium * Normal left atrial size. Right Atrium * Normal right atrial size. Left Ventricle * Normal LV chamber size, wall thickness and function. * Mild left ventricular diastolic dysfunction. * LVEF 50%. Interatrial Septum * Interatrial septum not well evaluated. IVC * The IVC is not well evaluated. Pericardium * There is no pericardial effusion present. Aorta * Normally sized aortic root. History Hypertension Diabetes Hypercholesteremia History of CAD/PTCA Congestive Heart Failure 02/20/2013 a Previous Echo was performed. Measurements: BP: 128/ 60 2D Normal Values IVSd: .63 cm 0.6 - 1.0 cm LVIDd: 4.60 cm 3.7 - 5.6 cm LVPWd: .73 cm 0.6 - 1.1 cm LVIDs: 2.93 cm 1.5 - 3.6 cm AO: 2.50 cm < 4.0 cm LA: 2.60 cm 2.0 - 4.0cm %FS: 36.30 cm >25 % LA volume: 31 Mitral Valve Peak E:.80 m/sec Peak A:1.37 m/sec E/A Ratio:0.6 Peak E' Lat Meir:8.95 cm/s Peak E' Med Meir:5.97 cm/s E/E' Lat Ratio:8.9 E/E' Med Ratio:13.4 LVOT Peak Meir:1.03 m/sec Mean Meir:.67 m/sec Peak Grad:4.00 mmHg Mean Grad:2.00 mmHg Aortic Valve Peak Meir:2.99 m/sec Mean Meir:2.03 m/sec Peak Grad:36.00 mmHg Mean Grad:19.00 mmHg Tricuspid Valve TV Regurg Peak Grad: 25.00mmHg TV Regurg Peak Meir: 2.50m/sec Updated by Lyric Prasad on 03/09/2016 3:05:15 PM electronically signed on 03/09/2016 3:08:02 PM with status of Final Wall Motion Mello: 1=Normal, 2=Hypokinesis, 3=Akinesis, 4=Dyskinesis, 5=Aneurysmal, 6=Hyperkinetic, X=Not Visualized (Blank)=Missing
[2016-03-09] MEDS: Mirtazapine 15 MG TABLET PO SCH (22:21)
[2016-03-09] MEDS: Melatonin 3 MG TABLET PO SCH (22:21)
[2016-03-10] MEDS: Insulin LISPRO 300 UNITS/3 ML VIAL SQ SCH ×4 (00:07→18:23)
[2016-03-10] MEDS: methylPREDNISolone 125 MG/2 ML VIAL IV SCH ×3 (00:10→18:12)
[2016-03-10] MEDS ORDERED: Benzonatate 100 MG CAPSULE PO PRN (02:04)
[2016-03-10] MEDS: Ipratropium/Albuterol Neb 3 ML IH SCH ×7 (04:17→23:15)
[2016-03-10 05:13] LABS: Hematocrit 28.8 % (37.5-50.1); Hemoglobin 9.9 g/dL (12.9-16.9); Mean Corpuscular HGB Conc 34.4 g/dL (31.6-35.5); Mean Corpuscular Hemoglobin 29.5 pg (28.0-33.3); Mean Corpuscular Volume 85.7 fL (83.0-100.0); Mean Platelet Volume 9.5 fL (9.4-12.4); Platelet Count 278 K/mcL (140-400); Red Blood Count 3.36 M/mcL (4.19-5.50); Red Cell Distribution Width 11.9 % (11.5-14.5)
[2016-03-10 05:26] LABS: Calcium 8.7 mg/dL (8.6-10.8); Potassium 4.8 mEq/L (3.5-4.5)
[2016-03-10] MEDS: Clindamycin 600 MG/50 ML 600 MG/50 ML IV.SOLN IVPB SCH ×2 (06:17→18:12)
[2016-03-10] MEDS: Magnesium Oxide 400 MG TABLET PO SCH ×2 (08:02→21:43)
[2016-03-10] MEDS: Aspirin 81 MG TAB.CHEW PO SCH (08:02)
[2016-03-10] MEDS: Finasteride 5 MG TABLET PO SCH (08:02)
[2016-03-10] MEDS: Lactobacillus 1 EACH CAP.SPRINK PO SCH (08:04)
--- NOTE | 2016-03-10 13:47 | Electrocardiograph Report ---
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
--- NOTE | 2016-03-10 16:03 | Internal Med Progress Note ---
Date of Encounter: 03/10/16 Time of Encounter: 16:01 - Assessment and plan (1) Acute respiratory failure with hypoxia Current Visit: Yes Status: Acute Assessment and plan: Acute hypoxic respiratory failure secondary to acute COPD exacerbation due to sepsis from aspiration pneumonia, worrisome for possible healthcare associated pneumonia present upon admission discontinued Cefepime at day 8 and Levaquin at day 7 COntinue clindamycin day 9 ( as he aspirated again 3 days ago) Aspiration precautions wean oxygen as tolerated Mechanical modified diet Awaiting placement when renal function improves (2) Acute on chronic renal failure Current Visit: Yes Status: Acute Assessment and plan: Likely 2ry to Henderson obstruction, creatinine is sligthly worse IMproved clinically after replacing henderson (prior Henderson did not have any return and had blood clots) hold lasix continue NS at 60 ml /h for 1 Lt, ( night need to restart diuretics afterwards) (3) Dementia with behavioral disturbance Current Visit: Yes Status: Acute Assessment and plan: Tolerated Aricept and SSRI , Continue current medication on discharge Qualifiers: Dementia type: Alzheimer's disease Alzheimer's disease onset: other onset Qualified Code(s): G30.8 - Other Alzheimer's disease; F02.81 - Dementia in other diseases classified elsewhere with behavioral disturbance (4) Diabetes mellitus Current Visit: Yes Status: Acute Assessment and plan: Continue insulin sliding scale Qualifiers: Diabetes mellitus type: type 2 Diabetes mellitus complication status: with diabetic arthropathy Diabetes mellitus family counselor insulin use: without family counselor use Qualified Code(s): E11.610 - Type 2 diabetes mellitus with diabetic neuropathic arthropathy (5) Pneumonia Current Visit: Yes Status: Acute Qualifiers: Pneumonia type: due to unspecified organism Laterality: bilateral Lung location: lower lobe of lung Qualified Code(s): J18.9 - Pneumonia, unspecified organism (6) Sepsis Current Visit: Yes Status: Acute Qualifiers: Sepsis type: sepsis due to unspecified organism Qualified Code(s): A41.9 - Sepsis, unspecified organism (7) CAD (coronary artery disease) Current Visit: No Status: Chronic Assessment and plan: Continue atenolol Qualifiers: Coronary Disease-Associated Artery/Lesion type: [place] artery [place] vs. transplanted heart: [place] heart Associated angina: without angina Qualified Code(s): I25.10 - Atherosclerotic heart disease of [place] coronary artery without angina pectoris (8) CHF (congestive heart failure) Current Visit: No Status: Chronic Assessment and plan: Unclear whether this is systolic or diastolic ECHO cardiogram report shows an ejection fraction of 50% with mild diastolic dysfunction. Severely calcified aortic valve not well visualized. Doppler measurements suggest moderately to severe aortic stenosis. hold Lasix due to ARF Qualifiers: Congestive heart failure type: unspecified congestive heart failure type Congestive heart failure chronicity: unspecified congestive heart failure chronicity Qualified Code(s): I50.9 - Heart failure, unspecified (9) Dysphagia Current Visit: No Status: Chronic Assessment and plan: Follow speech therapy instruction need rehabilitation for further monitoring of his condition . Social service surface is in the process of arranging rehabilitation Qualifiers: Dysphagia type: pharyngeal phase Qualified Code(s): R13.13 - Dysphagia, pharyngeal phase (10) GERD (gastroesophageal reflux disease) Current Visit: No Status: Chronic Assessment and plan: Stable on omeprazole High risk of aspiration Qualifiers: Esophagitis presence: esophagitis presence not specified Qualified Code(s) : K21.9 - Gastro-esophageal reflux disease without esophagitis - Time Spent With Patient Greater than 35 minutes - Subjective Interval history: Feeling better clinically. He is oriented only to person: Unable to perform a complete review of systems, Was complaining of mild pain at the tip of his penis where the Henderson is a few days ago but not anymore. Denies any shortness of breath or chest pain at the moment, no abdominal pain, no dysuria or diarrhea. He choked on his food again on 03/07/16. - Constitutional Vitals: Temp Pulse Resp BP Pulse Ox 97.7 F 100 16 144/82 99 03/10/16 11:46 03/10/16 11:46 03/10/16 16:00 03/10/16 11:46 03/10/16 16:00 General appearance: Present: cooperative, A&O X 1, mild distress, pleasant. Absent: answers questions appropriately - Head Head exam: Present: atraumatic, normocephalic - Eye Eye exam: Present: PERRL, conjuntiva pink, sclera anicteric Pupils: Present: PERRL - Neck Neck exam general surgery: Present: supple, trachea midline. Absent: lymphadenopathy - Respiratory Respiratory exam: Present: CTAB, rales (Fine bibasilar crackles). Absent: accessory muscle use, rhonchi, wheezes - Cardiovascular Cardiovascular exam: Present: RRR, +S1, +S2. Absent: diastolic murmur, gallop, rubs, systolic murmur - GI/Abdominal GI/Abdominal exam: Present: normal bowel sounds, soft, no peritoneal signs. Absent: distended, tenderness - Extremities Exam Extremities exam: Present: pedal edema (+ 1 pitting edema), warm, radial pulses palpable and symetrical. Absent: calf tenderness, cyanotic - Neurological Exam Neurological exam: Present: CN II-XII intact, no focal deficits. Absent: oriented X3, pronater drift, facial droop, speech deficit - Skin Skin exam: Present: dry, intact Internal Medicine: Result - Labs CBC & Chem 7: 03/10/16 04:48 03/10/16 04:48 Labs: Short CBC 03/10/16 Range/Units 04:48 WBC 15.2 H (4.3-11.1) K/mcL Hgb 9.9 L (12.9-16.9) g/dL Hct 28.8 L (37.5-50.1) % Plt Count 278 (140-400) K/mcL BMP 03/10/16 04:48 Sodium 131 L Potassium 4.8 H Chloride 101 Carbon Dioxide 24 BUN 33 H Creatinine 1.88 H Glucose 269 H Calcium 8.7 - ABG Interpretation ABG results: ABG ABG pH 7.40 pH Units (7.32-7.45) 03/01/16 21:18 ABG pCO2 43 mmHg (35-45) 03/01/16 21:18 ABG pO2 55 mmHg (85-104) L 03/01/16 21:18 ABG O2 Saturation 88 % (95-98) L 03/01/16 21:18 PT/INR, D-dimer PT 12.6 Seconds (9.4-12.1) H 03/01/16 19:46 Consult Discharge Plan - Plan Instructions: Heart Failure (DC), Acute Respiratory Distress Syndrome (DC), Urinary Tract Infection in Men (DC), Diabetes Mellitus Type 2 in Adults (DC), Sepsis (DC), Chronic Hypertension (DC), Pneumonia (DC), Dementia, 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
[2016-03-10] MEDS ORDERED: 0.9 % Sodium Chloride 1,000 ML IVC ONE (16:15)
[2016-03-10] MEDS: Mirtazapine 15 MG TABLET PO SCH (21:42)
[2016-03-10] MEDS: Melatonin 3 MG TABLET PO SCH (21:42)
[2016-03-11] MEDS: methylPREDNISolone 125 MG/2 ML VIAL IV SCH ×3 (00:04→17:18)
[2016-03-11] MEDS: Clindamycin 600 MG/50 ML 600 MG/50 ML IV.SOLN IVPB SCH ×3 (00:04→13:46)
[2016-03-11] MEDS: Insulin LISPRO 300 UNITS/3 ML VIAL SQ SCH ×4 (00:05→17:24)
[2016-03-11] MEDS: Ipratropium/Albuterol Neb 3 ML IH SCH ×6 (04:26→23:27)
[2016-03-11 06:16] LABS: Hemoglobin 10.8 g/dL (12.9-16.9); Mean Corpuscular HGB Conc 33.8 g/dL (31.6-35.5); Mean Corpuscular Hemoglobin 29.3 pg (28.0-33.3); Mean Corpuscular Volume 86.7 fL (83.0-100.0); Mean Platelet Volume 9.5 fL (9.4-12.4); Platelet Count 359 K/mcL (140-400); Red Blood Count 3.69 M/mcL (4.19-5.50); Red Cell Distribution Width 11.9 % (11.5-14.5)
[2016-03-11 06:27] LABS: Potassium 5.5 mEq/L (3.5-4.5)
[2016-03-11] MEDS: Finasteride 5 MG TABLET PO SCH (10:08)
[2016-03-11] MEDS: Magnesium Oxide 400 MG TABLET PO SCH ×2 (10:08→19:59)
[2016-03-11] MEDS: Aspirin 81 MG TAB.CHEW PO SCH (10:08)
[2016-03-11] MEDS: Lactobacillus 1 EACH CAP.SPRINK PO SCH (10:08)
--- NOTE | 2016-03-11 13:48 | Internal Med Progress Note ---
Date of Encounter: 03/11/16 Time of Encounter: 13:46 - Assessment and plan (1) Acute respiratory failure with hypoxia Current Visit: Yes Status: Acute (2) Acute on chronic renal failure Current Visit: Yes Status: Acute (3) Hyperkalemia Current Visit: Yes Status: Acute (4) Dementia with behavioral disturbance Current Visit: Yes Status: Acute Qualifiers: Dementia type: Alzheimer's disease Alzheimer's disease onset: other onset Qualified Code(s): G30.8 - Other Alzheimer's disease; F02.81 - Dementia in other diseases classified elsewhere with behavioral disturbance (5) Pneumonia Current Visit: Yes Status: Acute Qualifiers: Pneumonia type: aspiration pneumonia Aspiration pneumonia type: unspecified Laterality: bilateral Lung location: lower lobe of lung Qualified Code(s): J69.0 - Pneumonitis due to inhalation of food and vomit (6) Physical deconditioning Current Visit: Yes Status: Acute (7) Catheter-associated urinary tract infection Current Visit: No Status: Acute Qualifiers: Indwelling urinary catheter type: indwelling urethral catheter Encounter type: subsequent encounter Qualified Code(s): T83.511D - Infection and inflammatory reaction due to indwelling urethral catheter, subsequent encounter ; N39.0 - Urinary tract infection, site not specified (8) CAD (coronary artery disease) Current Visit: No Status: Chronic Qualifiers: Coronary Disease-Associated Artery/Lesion type: [place] artery [place] vs. transplanted heart: [place] heart Associated angina: without angina Qualified Code(s): I25.10 - Atherosclerotic heart disease of [place] coronary artery without angina pectoris (9) Dysphagia Current Visit: No Status: Chronic Qualifiers: Dysphagia type: pharyngeal phase Qualified Code(s): R13.13 - Dysphagia, pharyngeal phase (10) GERD (gastroesophageal reflux disease) Current Visit: No Status: Chronic Qualifiers: Esophagitis presence: esophagitis presence not specified Qualified Code(s) : K21.9 - Gastro-esophageal reflux disease without esophagitis (11) Hypertension Current Visit: No Status: Chronic Assessment and plan: persistent leukocytosis, could be related to pneumonitis, continue clinda. Pt has just completed 8 days of cefepime and 7 days of levaquin give kayexalate, recheck potassium level in am monitor creatinine, continue to hold lasix, will restrict fluids. pt remains confused, continue one on one monitoring. Qualifiers: Hypertension type: essential hypertension Qualified Code(s): I10 - Essential (primary) hypertension - Subjective Interval history: f/u for sepsis, aspiration pna, pt does not report any complains today. - Constitutional Vitals: Temp Pulse Resp BP Pulse Ox 97.6 F 85 16 125/93 95 03/11/16 07:28 03/11/16 07:28 03/11/16 11:09 03/11/16 07:28 03/11/16 11:09 General appearance: Present: cooperative, A&O X 1, mild distress, pleasant. Absent: answers questions appropriately - Head Head exam: Present: atraumatic, normocephalic - Eye Eye exam: Present: PERRL, conjuntiva pink, sclera anicteric Pupils: Present: PERRL - Neck Neck exam general surgery: Present: supple, trachea midline. Absent: lymphadenopathy - Respiratory Respiratory exam: Present: CTAB. Absent: accessory muscle use, rales, rhonchi, wheezes - Cardiovascular Cardiovascular exam: Present: RRR, +S1, +S2, systolic murmur. Absent: diastolic murmur, gallop, rubs - GI/Abdominal GI/Abdominal exam: Present: normal bowel sounds, soft, no peritoneal signs. Absent: distended, tenderness - Additional comments: henderson to gravity. - Extremities Exam Extremities exam: Present: warm, radial pulses palpable and symetrical. Absent : calf tenderness, cyanotic, pedal edema - Neurological Exam Neurological exam: Present: CN II-XII intact, oriented X3, no focal deficits. Absent: pronater drift, facial droop, speech deficit - Skin Skin exam: Present: dry, intact Internal Medicine: Result - Labs CBC & Chem 7: 03/11/16 05:12 03/11/16 05:12 Labs: Short CBC 03/11/16 Range/Units 05:12 WBC 15.4 H (4.3-11.1) K/mcL Hgb 10.8 L (12.9-16.9) g/dL Hct 32.0 L (37.5-50.1) % Plt Count 359 (140-400) K/mcL BMP 03/11/16 05:12 Sodium 132 L Potassium 5.5 H Chloride 99 Carbon Dioxide 23 BUN 39 H Creatinine 2.12 H Glucose 404 H Calcium 9.0 - ABG Interpretation ABG results: ABG ABG pH 7.40 pH Units (7.32-7.45) 03/01/16 21:18 ABG pCO2 43 mmHg (35-45) 03/01/16 21:18 ABG pO2 55 mmHg (85-104) L 03/01/16 21:18 ABG O2 Saturation 88 % (95-98) L 03/01/16 21:18 PT/INR, D-dimer PT 12.6 Seconds (9.4-12.1) H 03/01/16 19:46 Consult Discharge Plan - Plan Instructions: Heart Failure (DC), Acute Respiratory Distress Syndrome (DC), Urinary Tract Infection in Men (DC), Diabetes Mellitus Type 2 in Adults (DC), Sepsis (DC), Chronic Hypertension (DC), Pneumonia (DC), Dementia, 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
[2016-03-11] MEDS: Mirtazapine 15 MG TABLET PO SCH (19:59)
[2016-03-11] MEDS: Melatonin 3 MG TABLET PO SCH (19:59)
[2016-03-12] MEDS: methylPREDNISolone 125 MG/2 ML VIAL IV SCH ×3 (00:21→17:49)
[2016-03-12] MEDS: Clindamycin 600 MG/50 ML 600 MG/50 ML IV.SOLN IVPB SCH ×3 (00:22→17:46)
[2016-03-12] MEDS: Insulin LISPRO 300 UNITS/3 ML VIAL SQ SCH ×4 (00:27→20:37)
[2016-03-12] MEDS: Ipratropium/Albuterol Neb 3 ML IH SCH ×5 (03:48→20:27)
[2016-03-12 05:34] LABS: Basophils % 0.1 %; Hematocrit 27.6 % (37.5-50.1); Hemoglobin 9.5 g/dL (12.9-16.9); Immature Platelets 1.6 % (1.1-6.1); Lymphocytes # 0.9 K/mcL (0.6-4.6); Lymphocytes % 7.6 %; Mean Corpuscular HGB Conc 34.4 g/dL (31.6-35.5); Mean Corpuscular Volume 87.1 fL (83.0-100.0); Mean Platelet Volume 9.2 fL (9.4-12.4); Monocytes # 0.5 K/mcL (0.0-1.3); Monocytes % 3.6 %; Neutrophils # 10.7 K/mcL (1.6-8.9); Platelet Count 336 K/mcL (140-400); Red Blood Count 3.17 M/mcL (4.19-5.50); Red Cell Distribution Width 11.9 % (11.5-14.5); Segmented Neutrophils % 86.7 %
[2016-03-12 05:45] LABS: Calcium 8.3 mg/dL (8.6-10.8); Magnesium 2.2 mg/dL (1.6-2.6); Potassium 4.9 mEq/L (3.5-4.5)
[2016-03-12] MEDS: Finasteride 5 MG TABLET PO SCH (12:34)
[2016-03-12] MEDS: Magnesium Oxide 400 MG TABLET PO SCH ×2 (12:34→20:23)
[2016-03-12] MEDS: Aspirin 81 MG TAB.CHEW PO SCH (12:35)
[2016-03-12] MEDS: Lactobacillus 1 EACH CAP.SPRINK PO SCH (12:47)
[2016-03-12] MEDS ORDERED: D5% in Water 1,000 ML IV PRN (18:01)
[2016-03-12] MEDS ORDERED: Dextrose Gel 15 GM PO PRN ×2 (18:01)
[2016-03-12] MEDS ORDERED: *HR* Dextrose 50 % in Water (Syg) 50 ML SYRINGE IVP PRN (18:01)
--- NOTE | 2016-03-12 18:07 | Internal Med Progress Note ---
Date of Encounter: 03/12/16 Time of Encounter: 18:05 - Assessment and plan (1) Acute respiratory failure with hypoxia Current Visit: Yes Status: Acute (2) Acute on chronic renal failure Current Visit: Yes Status: Acute (3) Hyperkalemia Current Visit: Yes Status: Acute (4) Dementia with behavioral disturbance Current Visit: Yes Status: Acute Qualifiers: Dementia type: Alzheimer's disease Alzheimer's disease onset: other onset Qualified Code(s): G30.8 - Other Alzheimer's disease; F02.81 - Dementia in other diseases classified elsewhere with behavioral disturbance (5) Pneumonia Current Visit: Yes Status: Acute Qualifiers: Pneumonia type: aspiration pneumonia Aspiration pneumonia type: unspecified Laterality: bilateral Lung location: lower lobe of lung Qualified Code(s): J69.0 - Pneumonitis due to inhalation of food and vomit (6) Physical deconditioning Current Visit: Yes Status: Acute (7) Catheter-associated urinary tract infection Current Visit: No Status: Acute Qualifiers: Indwelling urinary catheter type: indwelling urethral catheter Encounter type: subsequent encounter Qualified Code(s): T83.511D - Infection and inflammatory reaction due to indwelling urethral catheter, subsequent encounter ; N39.0 - Urinary tract infection, site not specified (8) CAD (coronary artery disease) Current Visit: No Status: Chronic Qualifiers: Coronary Disease-Associated Artery/Lesion type: [place] artery [place] vs. transplanted heart: [place] heart Associated angina: without angina Qualified Code(s): I25.10 - Atherosclerotic heart disease of [place] coronary artery without angina pectoris (9) Dysphagia Current Visit: No Status: Chronic Qualifiers: Dysphagia type: pharyngeal phase Qualified Code(s): R13.13 - Dysphagia, pharyngeal phase (10) GERD (gastroesophageal reflux disease) Current Visit: No Status: Chronic Qualifiers: Esophagitis presence: esophagitis presence not specified Qualified Code(s) : K21.9 - Gastro-esophageal reflux disease without esophagitis (11) Hypertension Current Visit: No Status: Chronic Assessment and plan: Improving Leukocytosis, continue clinda. severe hyperglycemia due to diabetes uncontrolled and steroids, add basal insulin and change to ACHS sliding scale. Pt has just completed 8 days of cefepime and 7 days of levaquin creatinine improving, continue to hold lasix, continue to restrict fluids. pt remains confused, continue one on one monitoring. Qualifiers: Hypertension type: essential hypertension Qualified Code(s): I10 - Essential (primary) hypertension - Subjective Interval history: f/u for sepsis, aspiration pna, pt does not report any complains today. - Constitutional Vitals: Temp Pulse Resp BP Pulse Ox 98.1 F 93 16 131/75 93 L 03/12/16 16:12 03/12/16 16:12 03/12/16 16:12 03/12/16 16:12 03/12/16 16:12 General appearance: Present: cooperative, A&O X 1, mild distress, pleasant. Absent: answers questions appropriately - Head Head exam: Present: atraumatic, normocephalic - Eye Eye exam: Present: PERRL, conjuntiva pink, sclera anicteric Pupils: Present: PERRL - Neck Neck exam general surgery: Present: supple, trachea midline. Absent: lymphadenopathy - Respiratory Respiratory exam: Present: decreased breath sounds. Absent: accessory muscle use, rales, rhonchi, wheezes - Cardiovascular Cardiovascular exam: Present: RRR, +S1, +S2. Absent: diastolic murmur, gallop, rubs, systolic murmur - GI/Abdominal GI/Abdominal exam: Present: normal bowel sounds, soft, no peritoneal signs. Absent: distended, tenderness - Extremities Exam Extremities exam: Present: warm, radial pulses palpable and symetrical. Absent : calf tenderness, cyanotic, pedal edema - Neurological Exam Neurological exam: Present: CN II-XII intact, oriented X3, no focal deficits. Absent: pronater drift, facial droop, speech deficit - Skin Skin exam: Present: dry, intact Internal Medicine: Result - Labs CBC & Chem 7: 03/12/16 05:16 03/12/16 05:16 Labs: Short CBC 03/12/16 Range/Units 05:16 WBC 12.3 H (4.3-11.1) K/mcL Hgb 9.5 L (12.9-16.9) g/dL Hct 27.6 L (37.5-50.1) % Plt Count 336 (140-400) K/mcL Neutrophils # 10.7 H (1.6-8.9) K/mcL BMP 03/12/16 05:16 Sodium 136 Potassium 4.9 H Chloride 105 Carbon Dioxide 23 BUN 39 H Creatinine 1.57 H Glucose 255 H Calcium 8.3 L - ABG Interpretation ABG results: ABG ABG pH 7.40 pH Units (7.32-7.45) 03/01/16 21:18 ABG pCO2 43 mmHg (35-45) 03/01/16 21:18 ABG pO2 55 mmHg (85-104) L 03/01/16 21:18 ABG O2 Saturation 88 % (95-98) L 03/01/16 21:18 PT/INR, D-dimer PT 12.6 Seconds (9.4-12.1) H 03/01/16 19:46 Consult Discharge Plan - Plan Instructions: Heart Failure (DC), Acute Respiratory Distress Syndrome (DC), Urinary Tract Infection in Men (DC), Diabetes Mellitus Type 2 in Adults (DC), Sepsis (DC), Chronic Hypertension (DC), Pneumonia (DC), Dementia, Pain Coordinator (GEN) [facility]errals: [facility] [Primary Care Provider] -
[2016-03-12] MEDS: Melatonin 3 MG TABLET PO SCH (20:23)
[2016-03-12] MEDS: Mirtazapine 15 MG TABLET PO SCH (20:23)
[2016-03-12] MEDS ORDERED: Insulin DETEMIR 100 UNIT/ML X5UNITS SQ SCH (21:00)
[2016-03-13] MEDS: Clindamycin 600 MG/50 ML 600 MG/50 ML IV.SOLN IVPB SCH ×2 (00:07→05:56)
[2016-03-13] MEDS: Ipratropium/Albuterol Neb 3 ML IH SCH ×7 (00:12→23:35)
[2016-03-13 05:17] LABS: Basophils % 0.1 %; Hematocrit 26.8 % (37.5-50.1); Hemoglobin 9.3 g/dL (12.9-16.9); Immature Granulocytes % 1.2 % (0-4); Lymphocytes # 1.5 K/mcL (0.6-4.6); Lymphocytes % 10.7 %; Mean Corpuscular HGB Conc 34.7 g/dL (31.6-35.5); Mean Corpuscular Hemoglobin 29.9 pg (28.0-33.3); Mean Corpuscular Volume 86.2 fL (83.0-100.0); Mean Platelet Volume 9.3 fL (9.4-12.4); Monocytes # 0.9 K/mcL (0.0-1.3); Monocytes % 6.7 %; Neutrophils # 11.1 K/mcL (1.6-8.9); Platelet Count 292 K/mcL (140-400); Red Blood Count 3.11 M/mcL (4.19-5.50); Red Cell Distribution Width 11.9 % (11.5-14.5); Segmented Neutrophils % 81.3 %
[2016-03-13 05:29] LABS: Calcium 8.1 mg/dL (8.6-10.8); Potassium 4.9 mEq/L (3.5-4.5)
[2016-03-13] MEDS: Lactobacillus 1 EACH CAP.SPRINK PO SCH (09:15)
[2016-03-13] MEDS: Magnesium Oxide 400 MG TABLET PO SCH ×2 (09:15→20:56)
[2016-03-13] MEDS: Aspirin 81 MG TAB.CHEW PO SCH (09:15)
[2016-03-13] MEDS: predniSONE 20 MG TABLET PO SCH (09:15)
[2016-03-13] MEDS: Finasteride 5 MG TABLET PO SCH (09:16)
[2016-03-13] MEDS: Insulin LISPRO 300 UNITS/3 ML VIAL SQ SCH ×4 (09:16→20:58)
--- NOTE | 2016-03-13 11:38 | Internal Med Progress Note ---
Date of Encounter: 03/13/16 Time of Encounter: 11:35 - Assessment and plan (1) Acute respiratory failure with hypoxia Current Visit: Yes Status: Acute (2) Acute on chronic renal failure Current Visit: Yes Status: Acute (3) Hyperkalemia Current Visit: Yes Status: Acute (4) Dementia with behavioral disturbance Current Visit: Yes Status: Acute Qualifiers: Dementia type: Alzheimer's disease Alzheimer's disease onset: other onset Qualified Code(s): G30.8 - Other Alzheimer's disease; F02.81 - Dementia in other diseases classified elsewhere with behavioral disturbance (5) Pneumonia Current Visit: Yes Status: Acute Qualifiers: Pneumonia type: aspiration pneumonia Aspiration pneumonia type: unspecified Laterality: bilateral Lung location: lower lobe of lung Qualified Code(s): J69.0 - Pneumonitis due to inhalation of food and vomit (6) Physical deconditioning Current Visit: Yes Status: Acute (7) Catheter-associated urinary tract infection Current Visit: No Status: Acute Qualifiers: Indwelling urinary catheter type: indwelling urethral catheter Encounter type: subsequent encounter Qualified Code(s): T83.511D - Infection and inflammatory reaction due to indwelling urethral catheter, subsequent encounter ; N39.0 - Urinary tract infection, site not specified (8) CAD (coronary artery disease) Current Visit: No Status: Chronic Qualifiers: Coronary Disease-Associated Artery/Lesion type: [place] artery [place] vs. transplanted heart: [place] heart Associated angina: without angina Qualified Code(s): I25.10 - Atherosclerotic heart disease of [place] coronary artery without angina pectoris (9) Dysphagia Current Visit: No Status: Chronic Qualifiers: Dysphagia type: pharyngeal phase Qualified Code(s): R13.13 - Dysphagia, pharyngeal phase (10) GERD (gastroesophageal reflux disease) Current Visit: No Status: Chronic Qualifiers: Esophagitis presence: esophagitis presence not specified Qualified Code(s) : K21.9 - Gastro-esophageal reflux disease without esophagitis (11) Hypertension Current Visit: No Status: Chronic Assessment and plan: wbc lingering, will continue oral clindamycin. Pt had chronic indwelling henderson, if wbc continues to rise, will consider re-evaluating Urine for re-infection, however it might be largely colonized. Increase levemir to BID due to severe hyperglycemia due to diabetes uncontrolled and steroids, Pt has just completed 8 days of cefepime and 7 days of levaquin Continue to hold lasix, continue to restrict fluids. pt remains confused, continue chair and bed alarm. Qualifiers: Hypertension type: essential hypertension Qualified Code(s): I10 - Essential (primary) hypertension - Subjective Interval history: f/u for sepsis, aspiration pna, pt does not report any complains today. - Constitutional Vitals: Temp Pulse Resp BP Pulse Ox 98.1 F 99 17 133/80 91 L 03/12/16 16:12 03/13/16 07:31 03/13/16 07:31 03/13/16 07:31 03/13/16 04:20 General appearance: Present: cooperative, A&O X 1, mild distress, pleasant. Absent: answers questions appropriately - Head Head exam: Present: atraumatic, normocephalic - Eye Eye exam: Present: PERRL, conjuntiva pink, sclera anicteric Pupils: Present: PERRL - Neck Neck exam general surgery: Present: supple, trachea midline. Absent: lymphadenopathy - Respiratory Respiratory exam: Present: CTAB. Absent: accessory muscle use, rales, rhonchi, wheezes - Cardiovascular Cardiovascular exam: Present: RRR, +S1, +S2. Absent: diastolic murmur, gallop, rubs, systolic murmur - GI/Abdominal GI/Abdominal exam: Present: normal bowel sounds, soft, no peritoneal signs. Absent: distended, tenderness - Extremities Exam Extremities exam: Present: warm, radial pulses palpable and symetrical. Absent : calf tenderness, cyanotic, pedal edema - Neurological Exam Neurological exam: Present: CN II-XII intact, oriented X3, no focal deficits. Absent: pronater drift, facial droop, speech deficit - Skin Skin exam: Present: dry, intact Internal Medicine: Result - Labs CBC & Chem 7: 03/13/16 04:56 03/13/16 04:56 Labs: Short CBC 03/13/16 Range/Units 04:56 WBC 13.7 H (4.3-11.1) K/mcL Hgb 9.3 L (12.9-16.9) g/dL Hct 26.8 L (37.5-50.1) % Plt Count 292 (140-400) K/mcL Neutrophils # 11.1 H (1.6-8.9) K/mcL BMP 03/13/16 04:56 Sodium 134 L Potassium 4.9 H Chloride 103 Carbon Dioxide 22 BUN 44 H Creatinine 1.61 H Glucose 410 H Calcium 8.1 L - ABG Interpretation ABG results: ABG ABG pH 7.40 pH Units (7.32-7.45) 03/01/16 21:18 ABG pCO2 43 mmHg (35-45) 03/01/16 21:18 ABG pO2 55 mmHg (85-104) L 03/01/16 21:18 ABG O2 Saturation 88 % (95-98) L 03/01/16 21:18 PT/INR, D-dimer PT 12.6 Seconds (9.4-12.1) H 03/01/16 19:46 Consult Discharge Plan - Plan Instructions: Heart Failure (DC), Acute Respiratory Distress Syndrome (DC), Urinary Tract Infection in Men (DC), Diabetes Mellitus Type 2 in Adults (DC), Sepsis (DC), Chronic Hypertension (DC), Pneumonia (DC), Dementia, Bell Ringer (GEN) [facility]errals: [facility] [Primary Care Provider] -
[2016-03-13] MEDS ORDERED: D5% in Water 1,000 ML IV PRN (13:00)
[2016-03-13] MEDS ORDERED: *HR* Dextrose 50 % in Water (Syg) 50 ML SYRINGE IVP PRN (13:00)
[2016-03-13] MEDS ORDERED: Dextrose Gel 15 GM PO PRN ×2 (13:00)
[2016-03-13] MEDS: Mirtazapine 15 MG TABLET PO SCH (20:56)
[2016-03-13] MEDS: Melatonin 3 MG TABLET PO SCH (20:56)
[2016-03-13] MEDS: Insulin DETEMIR 100 UNIT/ML X5UNITS SQ SCH (21:34)
[2016-03-14] MEDS: Ipratropium/Albuterol Neb 3 ML IH SCH ×6 (04:29→23:18)
[2016-03-14 05:07] LABS: Basophils % 0.1 %; Eosinophils % 0.1 %; Hemoglobin 9.6 g/dL (12.9-16.9); Immature Granulocytes % 1.2 % (0-4); Lymphocytes # 2.2 K/mcL (0.6-4.6); Mean Corpuscular HGB Conc 34.3 g/dL (31.6-35.5); Mean Corpuscular Hemoglobin 29.5 pg (28.0-33.3); Mean Corpuscular Volume 86.2 fL (83.0-100.0); Monocytes # 1.1 K/mcL (0.0-1.3); Monocytes % 7.5 %; Neutrophils # 11.1 K/mcL (1.6-8.9); Platelet Count 317 K/mcL (140-400); Red Blood Count 3.25 M/mcL (4.19-5.50); Segmented Neutrophils % 76.1 %
[2016-03-14 05:22] LABS: Calcium 8.4 mg/dL (8.6-10.8); Potassium 4.8 mEq/L (3.5-4.5)
[2016-03-14] MEDS: Insulin LISPRO 300 UNITS/3 ML VIAL SQ SCH ×4 (09:02→22:41)
[2016-03-14] MEDS: Lactobacillus 1 EACH CAP.SPRINK PO SCH (09:03)
[2016-03-14] MEDS: Magnesium Oxide 400 MG TABLET PO SCH ×2 (09:03→22:24)
[2016-03-14] MEDS: Aspirin 81 MG TAB.CHEW PO SCH (09:03)
[2016-03-14] MEDS: Finasteride 5 MG TABLET PO SCH (09:04)
[2016-03-14] MEDS: predniSONE 20 MG TABLET PO SCH ×2 (09:04→09:07)
[2016-03-14] MEDS: Insulin DETEMIR 100 UNIT/ML X5UNITS SQ SCH ×2 (09:07→22:27)
[2016-03-14] MEDS ORDERED: Levofloxacin 500 MG/100 ML 500 MG/100 ML BAG IVPB ONE (16:00)
[2016-03-14] MEDS ORDERED: Levofloxacin 500 MG/100 ML 500 MG/100 ML BAG IVPB SCH (16:00)
--- NOTE | 2016-03-14 17:50 | Internal Med Progress Note ---
Date of Encounter: 03/14/16 Time of Encounter: 17:44 - Assessment and plan (1) Acute respiratory failure with hypoxia Current Visit: Yes Status: Acute (2) Acute on chronic renal failure Current Visit: Yes Status: Acute (3) Hyperkalemia Current Visit: Yes Status: Acute (4) Dementia with behavioral disturbance Current Visit: Yes Status: Acute Qualifiers: Dementia type: Alzheimer's disease Alzheimer's disease onset: other onset Qualified Code(s): G30.8 - Other Alzheimer's disease; F02.81 - Dementia in other diseases classified elsewhere with behavioral disturbance (5) Pneumonia Current Visit: Yes Status: Acute Qualifiers: Pneumonia type: aspiration pneumonia Aspiration pneumonia type: unspecified Laterality: bilateral Lung location: lower lobe of lung Qualified Code(s): J69.0 - Pneumonitis due to inhalation of food and vomit (6) Physical deconditioning Current Visit: Yes Status: Acute (7) Catheter-associated urinary tract infection Current Visit: No Status: Acute Qualifiers: Indwelling urinary catheter type: indwelling urethral catheter Encounter type: subsequent encounter Qualified Code(s): T83.511D - Infection and inflammatory reaction due to indwelling urethral catheter, subsequent encounter ; N39.0 - Urinary tract infection, site not specified (8) CAD (coronary artery disease) Current Visit: No Status: Chronic Qualifiers: Coronary Disease-Associated Artery/Lesion type: [place] artery [place] vs. transplanted heart: [place] heart Associated angina: without angina Qualified Code(s): I25.10 - Atherosclerotic heart disease of [place] coronary artery without angina pectoris (9) Dysphagia Current Visit: No Status: Chronic Qualifiers: Dysphagia type: pharyngeal phase Qualified Code(s): R13.13 - Dysphagia, pharyngeal phase (10) GERD (gastroesophageal reflux disease) Current Visit: No Status: Chronic Qualifiers: Esophagitis presence: esophagitis presence not specified Qualified Code(s) : K21.9 - Gastro-esophageal reflux disease without esophagitis (11) Hypertension Current Visit: No Status: Chronic Assessment and plan: wbc creeping up, no new signs of aspiration, will add levaquin empirically and continue oral clindamycin. Pt has chronic indwelling henderson, if wbc continues to rise, will consider re- sending urine culture, however it might be largely colonized. Still hyperglycemic, will Increase levemir. Pt got 8 days of cefepime and 7 days of levaquin in the early part of this admission. Will Continue to hold lasix and restrict fluids till renal function is back to baseline. pt remains confused, continue chair and bed alarm. Pending placement. Qualifiers: Hypertension type: essential hypertension Qualified Code(s): I10 - Essential (primary) hypertension - Subjective Interval history: f/u for sepsis, aspiration pna, pt does not report any complains today. - Constitutional Vitals: Temp Pulse Resp BP Pulse Ox 98.3 F 75 20 146/57 98 03/14/16 15:21 03/14/16 15:21 03/14/16 15:21 03/14/16 15:21 03/14/16 15:21 General appearance: Present: cooperative, A&O X 1, mild distress, pleasant. Absent: answers questions appropriately - Head Head exam: Present: atraumatic, normocephalic - Eye Eye exam: Present: PERRL, conjuntiva pink, sclera anicteric Pupils: Present: PERRL - Neck Neck exam general surgery: Present: supple, trachea midline. Absent: lymphadenopathy - Respiratory Respiratory exam: Present: CTAB. Absent: accessory muscle use, rales, rhonchi, wheezes - Cardiovascular Cardiovascular exam: Present: RRR, +S1, +S2. Absent: diastolic murmur, gallop, rubs, systolic murmur - GI/Abdominal GI/Abdominal exam: Present: normal bowel sounds, soft, no peritoneal signs. Absent: distended, tenderness - Extremities Exam Extremities exam: Present: warm, radial pulses palpable and symetrical. Absent : calf tenderness, cyanotic, pedal edema - Neurological Exam Neurological exam: Present: CN II-XII intact, oriented X3, no focal deficits. Absent: pronater drift, facial droop, speech deficit - Skin Skin exam: Present: dry, intact - Other Additional findings: indwelling henderson Internal Medicine: Result - Labs CBC & Chem 7: 03/14/16 04:55 03/14/16 04:55 Labs: Short CBC 03/14/16 Range/Units 04:55 WBC 14.6 H (4.3-11.1) K/mcL Hgb 9.6 L (12.9-16.9) g/dL Hct 28.0 L (37.5-50.1) % Plt Count 317 (140-400) K/mcL Neutrophils # 11.1 H (1.6-8.9) K/mcL BMP 03/14/16 04:55 Sodium 138 Potassium 4.8 H Chloride 106 Carbon Dioxide 26 BUN 38 H Creatinine 1.44 H Glucose 206 H Calcium 8.4 L - ABG Interpretation ABG results: ABG ABG pH 7.40 pH Units (7.32-7.45) 03/01/16 21:18 ABG pCO2 43 mmHg (35-45) 03/01/16 21:18 ABG pO2 55 mmHg (85-104) L 03/01/16 21:18 ABG O2 Saturation 88 % (95-98) L 03/01/16 21:18 PT/INR, D-dimer PT 12.6 Seconds (9.4-12.1) H 03/01/16 19:46 Consult Discharge Plan - Plan Instructions: Heart Failure (DC), Acute Respiratory Distress Syndrome (DC), Urinary Tract Infection in Men (DC), Diabetes Mellitus Type 2 in Adults (DC), Sepsis (DC), Chronic Hypertension (DC), Pneumonia (DC), Dementia, Dragline Operator (GEN) [facility]: [facility] [Primary Care Provider[facility] -
[2016-03-14] MEDS: Mirtazapine 15 MG TABLET PO SCH (22:24)
[2016-03-14] MEDS: Melatonin 3 MG TABLET PO SCH (22:25)
[2016-03-15] MEDS: Ipratropium/Albuterol Neb 3 ML IH SCH ×5 (04:01→21:49)
[2016-03-15 07:05] LABS: BUN/Creatinine Ratio 26 (6-26); Blood Urea Nitrogen 35 mg/dL (8-26); Calcium 8.5 mg/dL (8.6-10.8); Carbon Dioxide 25 mEq/L (19-29); Chloride 105 mEq/L (98-109); Glucose 231 mg/dL (70-99); Osmolality,Calculated 299 (280-300); Potassium 4.8 mEq/L (3.5-4.5); Sodium 137 mEq/L (136-145); eGFR For African Americans > 60 (> 60); eGFR For Non-African Americans 52 (> 60)
[2016-03-15 07:30] LABS: Basophils % 0.1 %; Eosinophils # 0.1 K/mcL (0.0-0.6); Eosinophils % 0.4 %; Hematocrit 29.9 % (37.5-50.1); Hemoglobin 10.1 g/dL (12.9-16.9); Immature Granulocytes % 1.2 % (0-4); Lymphocytes # 2.6 K/mcL (0.6-4.6); Lymphocytes % 16.9 %; Mean Corpuscular HGB Conc 33.8 g/dL (31.6-35.5); Mean Corpuscular Hemoglobin 29.6 pg (28.0-33.3); Mean Corpuscular Volume 87.7 fL (83.0-100.0); Mean Platelet Volume 9.4 fL (9.4-12.4); Monocytes # 1.2 K/mcL (0.0-1.3); Monocytes % 7.7 %; Neutrophils # 11.3 K/mcL (1.6-8.9); Platelet Count 318 K/mcL (140-400); Red Blood Count 3.41 M/mcL (4.19-5.50); Red Cell Distribution Width 12.2 % (11.5-14.5); Segmented Neutrophils % 73.7 %
[2016-03-15] MEDS: Insulin LISPRO 300 UNITS/3 ML VIAL SQ SCH ×4 (09:50→23:11)
[2016-03-15] MEDS: Insulin DETEMIR 100 UNIT/ML X5UNITS SQ SCH ×2 (09:50→23:10)
[2016-03-15] MEDS: Finasteride 5 MG TABLET PO SCH (09:51)
[2016-03-15] MEDS: predniSONE 20 MG TABLET PO SCH (09:51)
[2016-03-15] MEDS: Magnesium Oxide 400 MG TABLET PO SCH ×2 (09:52→23:10)
[2016-03-15] MEDS: Lactobacillus 1 EACH CAP.SPRINK PO SCH (09:52)
[2016-03-15] MEDS: Aspirin 81 MG TAB.CHEW PO SCH (09:52)
[2016-03-15] MEDS ORDERED: Levofloxacin 250 MG/50 ML 250 MG/50 ML BAG IVPB SCH (16:00)
--- NOTE | 2016-03-15 17:05 | Internal Med Progress Note ---
Date of Encounter: 03/15/16 Time of Encounter: 16:00 - Assessment and plan (1) Acute respiratory failure with hypoxia Current Visit: Yes Status: Acute Assessment and plan: Secondary to pneumonia and CHF .Marked improvement, had 10 days course of IV antibiotics. Discontinue IV antibiotic monitor off antibiotics. (2) Pneumonia Current Visit: Yes Status: Acute Qualifiers: Pneumonia type: aspiration pneumonia Aspiration pneumonia type: unspecified Laterality: bilateral Lung location: lower lobe of lung Qualified Code(s): J69.0 - Pneumonitis due to inhalation of food and vomit (3) Mental status alteration Current Visit: Yes Status: Acute Assessment and plan: Market improvement with adding antidepressant and Aricept Qualifiers: Altered mental status type: delirium Qualified Code(s): R41.0 - Disorientation, unspecified (4) Diabetes mellitus Current Visit: Yes Status: Acute Assessment and plan: Taper down steroids adjust medication Qualifiers: Diabetes mellitus type: type 2 Diabetes mellitus complication status: with diabetic arthropathy Diabetes mellitus retirement insulin use: without laborer marine terminal use Qualified Code(s): E11.610 - Type 2 diabetes mellitus with diabetic neuropathic arthropathy (5) Physical deconditioning Current Visit: Yes Status: Acute Assessment and plan: Continue physical therapy and occupational therapy. Reevaluation by physical therapy to monitor any improvement (6) Dementia with behavioral disturbance Current Visit: Yes Status: Acute Qualifiers: Dementia type: Alzheimer's disease Alzheimer's disease onset: other onset Qualified Code(s): G30.8 - Other Alzheimer's disease; F02.81 - Dementia in other diseases classified elsewhere with behavioral disturbance (7) Leukocytosis Current Visit: Yes Status: Acute Assessment and plan: Recheck possible secondary to steroids Qualifiers: Leukocytosis type: unspecified Qualified Code(s): D72.829 - Elevated white blood cell count, unspecified - Subjective Interval history: Patient is very cooperative, appropriate consult for questions. Patient denies any cough or shortness of breath. Had bowel movement today. Patient denies any nausea or vomiting. Patient denies any problem with swallowing - Constitutional Vitals: Temp Pulse Resp BP Pulse Ox 97.9 F 85 12 113/58 97 03/15/16 15:52 03/15/16 15:52 03/15/16 15:52 03/15/16 15:52 03/15/16 15:52 General appearance: Present: cooperative, mild distress, pleasant, answers questions appropriately - Respiratory Respiratory exam: Present: decreased breath sounds. Absent: accessory muscle use, rales, rhonchi, wheezes - Cardiovascular Cardiovascular exam: Present: irregular rhythm, +S1, +S2. Absent: diastolic murmur, gallop, rubs, systolic murmur - Extremities Exam Extremities exam: Present: warm, radial pulses palpable and symetrical. Absent : calf tenderness, cyanotic, pedal edema - Neurological Exam Neurological exam: Present: CN II-XII intact, oriented X3, no focal deficits. Absent: pronater drift, facial droop, speech deficit Internal Medicine: Result - Labs CBC & Chem 7: 03/15/16 06:13 03/15/16 06:13 Labs: Short CBC 03/15/16 Range/Units 06:13 WBC 15.3 H (4.3-11.1) K/mcL Hgb 10.1 L (12.9-16.9) g/dL Hct 29.9 L (37.5-50.1) % Plt Count 318 (140-400) K/mcL Neutrophils # 11.3 H (1.6-8.9) K/mcL BMP 03/15/16 06:13 Sodium 137 Potassium 4.8 H Chloride 105 Carbon Dioxide 25 BUN 35 H Creatinine 1.33 H Glucose 231 H Calcium 8.5 L - ABG Interpretation ABG results: ABG ABG pH 7.40 pH Units (7.32-7.45) 03/01/16 21:18 ABG pCO2 43 mmHg (35-45) 03/01/16 21:18 ABG pO2 55 mmHg (85-104) L 03/01/16 21:18 ABG O2 Saturation 88 % (95-98) L 03/01/16 21:18 PT/INR, D-dimer PT 12.6 Seconds (9.4-12.1) H 03/01/16 19:46 Consult Discharge Plan - Plan Instructions: Heart Failure (DC), Acute Respiratory Distress Syndrome (DC), Urinary Tract Infection in Men (DC), Diabetes Mellitus Type 2 in Adults (DC), Sepsis (DC), Chronic Hypertension (DC), Pneumonia (DC), Dementia, Legislative Assistant (GEN) [facility]: [facility] [Primary Care Provider] -
[2016-03-15] MEDS: Melatonin 3 MG TABLET PO SCH (23:08)
[2016-03-15] MEDS: Mirtazapine 15 MG TABLET PO SCH (23:09)
[2016-03-16] MEDS: Ipratropium/Albuterol Neb 3 ML IH SCH ×7 (00:13→23:10)
[2016-03-16 04:01] LABS: Basophils % 0.1 %; Eosinophils # 0.1 K/mcL (0.0-0.6); Eosinophils % 0.4 %; Hematocrit 27.8 % (37.5-50.1); Hemoglobin 9.5 g/dL (12.9-16.9); Immature Granulocytes % 1.3 % (0-4); Lymphocytes # 2.6 K/mcL (0.6-4.6); Lymphocytes % 16.5 %; Mean Corpuscular HGB Conc 34.2 g/dL (31.6-35.5); Mean Corpuscular Hemoglobin 30.1 pg (28.0-33.3); Mean Platelet Volume 9.3 fL (9.4-12.4); Monocytes # 1.1 K/mcL (0.0-1.3); Monocytes % 6.7 %; Neutrophils # 11.7 K/mcL (1.6-8.9); Platelet Count 285 K/mcL (140-400); Red Blood Count 3.16 M/mcL (4.19-5.50); Red Cell Distribution Width 12.5 % (11.5-14.5)
[2016-03-16 04:11] LABS: Calcium 8.3 mg/dL (8.6-10.8); Phosphorous 4.1 mg/dL (2.3-4.7); Potassium 4.9 mEq/L (3.5-4.5)
--- NOTE | 2016-03-16 08:35 | Internal Med Progress Note ---
Date of Encounter: 03/16/16 Time of Encounter: 08:35 - Assessment and plan (1) Acute respiratory failure with hypoxia Current Visit: Yes Status: Resolved (2) Pneumonia Current Visit: Yes Status: Acute Assessment and plan: Continue monitoring off antibiotic had 10 days course of antibiotics Qualifiers: Pneumonia type: aspiration pneumonia Aspiration pneumonia type: unspecified Laterality: bilateral Lung location: lower lobe of lung Qualified Code(s): J69.0 - Pneumonitis due to inhalation of food and vomit (3) Mental status alteration Current Visit: Yes Status: Resolved Assessment and plan: Marked improvement in mental status better than his baseline Qualifiers: Altered mental status type: delirium Qualified Code(s): R41.0 - Disorientation, unspecified (4) Diabetes mellitus Current Visit: Yes Status: Acute Assessment and plan: Continue monitoring should be better after tapering down his steroid Qualifiers: Diabetes mellitus type: type 2 Diabetes mellitus complication status: with diabetic arthropathy Diabetes mellitus terminal make up operator insulin use: without penitentiary use Qualified Code(s): E11.610 - Type 2 diabetes mellitus with diabetic neuropathic arthropathy (5) Physical deconditioning Current Visit: Yes Status: Acute (6) Dementia with behavioral disturbance Current Visit: Yes Status: Acute Assessment and plan: Continue Aricept and SSRI on discharge marked improvement with that Qualifiers: Dementia type: Alzheimer's disease Alzheimer's disease onset: other onset Qualified Code(s): G30.8 - Other Alzheimer's disease; F02.81 - Dementia in other diseases classified elsewhere with behavioral disturbance (7) Leukocytosis Current Visit: Yes Status: Acute Assessment and plan: Possible secondary to steroids no source of infection currently, had full course was intubated for his UTI and pneumonia Qualifiers: Leukocytosis type: unspecified Qualified Code(s): D72.829 - Elevated white blood cell count, unspecified (8) CHF (congestive heart failure) Current Visit: No Status: Chronic Assessment and plan: Continue home Lasix, discussed with staff JUAN DIEGO hu lower extremities Qualifiers: Congestive heart failure type: unspecified congestive heart failure type Congestive heart failure chronicity: unspecified congestive heart failure chronicity Qualified Code(s): I50.9 - Heart failure, unspecified - Subjective Interval history: Patient is sitting on chair, patient is very cooperative, worsening of lower extremity edema - Constitutional Vitals: Temp Pulse Resp BP Pulse Ox 98.0 F 82 16 129/62 95 03/16/16 07:37 03/16/16 07:37 03/16/16 07:58 03/16/16 07:37 03/16/16 07:58 General appearance: Present: cooperative, pleasant, no acute distress, answers questions appropriately - Respiratory Respiratory exam: Present: decreased breath sounds, prolonged expiratory phase. Absent: accessory muscle use, rales, rhonchi, wheezes - Cardiovascular Cardiovascular exam: Present: RRR, +S1, +S2, systolic murmur (4 out of 6). Absent: diastolic murmur, gallop, rubs - GI/Abdominal GI/Abdominal exam: Present: normal bowel sounds, soft, no peritoneal signs. Absent: distended, tenderness - Extremities Exam Extremities exam: Present: pedal edema (Positive3 bilateral ), warm, radial pulses palpable and symetrical. Absent: calf tenderness, cyanotic - Neurological Exam Neurological exam: Present: CN II-XII intact, oriented X3, no focal deficits. Absent: pronater drift, facial droop, speech deficit Internal Medicine: Result - Labs CBC & Chem 7: 03/16/16 03:50 03/16/16 03:50 Labs: Short CBC 03/16/16 Range/Units 03:50 WBC 15.6 H (4.3-11.1) K/mcL Hgb 9.5 L (12.9-16.9) g/dL Hct 27.8 L (37.5-50.1) % Plt Count 285 (140-400) K/mcL Neutrophils # 11.7 H (1.6-8.9) K/mcL BMP 03/16/16 03:50 Sodium 137 Potassium 4.9 H Chloride 107 Carbon Dioxide 26 BUN 33 H Creatinine 1.42 H Glucose 173 H Calcium 8.3 L - ABG Interpretation ABG results: ABG ABG pH 7.40 pH Units (7.32-7.45) 03/01/16 21:18 ABG pCO2 43 mmHg (35-45) 03/01/16 21:18 ABG pO2 55 mmHg (85-104) L 03/01/16 21:18 ABG O2 Saturation 88 % (95-98) L 03/01/16 21:18 PT/INR, D-dimer PT 12.6 Seconds (9.4-12.1) H 03/01/16 19:46 Consult Discharge Plan - Plan Instructions: Heart Failure (DC), Acute Respiratory Distress Syndrome (DC), Urinary Tract Infection in Men (DC), Diabetes Mellitus Type 2 in Adults (DC), Sepsis (DC), Chronic Hypertension (DC), Pneumonia (DC), Dementia, Portfolio Specialist (GEN) [facility]errals: [facility] [Primary Care Provider] -
[2016-03-16] MEDS: Finasteride 5 MG TABLET PO SCH (08:56)
[2016-03-16] MEDS: Insulin LISPRO 300 UNITS/3 ML VIAL SQ SCH ×4 (08:56→23:50)
[2016-03-16] MEDS: Insulin DETEMIR 100 UNIT/ML X5UNITS SQ SCH ×2 (08:56→23:35)
[2016-03-16] MEDS: Furosemide 20 MG TABLET PO PRN (08:56)
[2016-03-16] MEDS: predniSONE 20 MG TABLET PO SCH (08:57)
[2016-03-16] MEDS: Magnesium Oxide 400 MG TABLET PO SCH ×2 (08:57→23:50)
[2016-03-16] MEDS: Aspirin 81 MG TAB.CHEW PO SCH (08:58)
[2016-03-16] MEDS: Lactobacillus 1 EACH CAP.SPRINK PO SCH (08:58)
[2016-03-16] MEDS: Mirtazapine 15 MG TABLET PO SCH (23:51)
[2016-03-16] MEDS: Melatonin 3 MG TABLET PO SCH (23:51)
[2016-03-16] MEDS: *HR* HYDROcodone/Acet 5/325 mg TABLET PO PRN (23:54)
[2016-03-17] MEDS: Ipratropium/Albuterol Neb 3 ML IH SCH ×5 (04:52→19:59)
[2016-03-17] MEDS: Insulin LISPRO 300 UNITS/3 ML VIAL SQ SCH ×4 (10:57→21:20)
[2016-03-17] MEDS: Finasteride 5 MG TABLET PO SCH (10:58)
[2016-03-17] MEDS: predniSONE 20 MG TABLET PO SCH (10:58)
[2016-03-17] MEDS: Lactobacillus 1 EACH CAP.SPRINK PO SCH (10:59)
[2016-03-17] MEDS: Aspirin 81 MG TAB.CHEW PO SCH (10:59)
[2016-03-17] MEDS: Magnesium Oxide 400 MG TABLET PO SCH ×2 (10:59→21:19)
[2016-03-17] MEDS: Insulin DETEMIR 100 UNIT/ML X5UNITS SQ SCH ×2 (10:59→21:19)
[2016-03-17] MEDS: *HR* HYDROcodone/Acet 5/325 mg TABLET PO PRN (11:06)
--- NOTE | 2016-03-17 14:40 | Internal Med Progress Note ---
Date of Encounter: 03/17/16 Time of Encounter: 09:00 - Assessment and plan (1) Severe aortic stenosis Current Visit: Yes Status: Acute Assessment and plan: per echo severe aortic stenosis will consult cardiology for further recommendation (2) Physical deconditioning Current Visit: Yes Status: Acute Assessment and plan: PT/OT awaiting placement at [facility] [place] (3) Pneumonia Current Visit: Yes Status: Chronic Assessment and plan: WILL DO CHEST x RAY TO EVALUATE Qualifiers: Pneumonia type: aspiration pneumonia Aspiration pneumonia type: unspecified Laterality: bilateral Lung location: lower lobe of lung Qualified Code(s): J69.0 - Pneumonitis due to inhalation of food and vomit - Time Spent With Patient Greater than 35 minutes - Subjective Interval history: PT FEELS BETTER DENIES FEVER , COUGH DECREASING IN FREQUENCY - Constitutional Vitals: Temp Pulse Resp BP Pulse Ox 97.6 F 83 14 137/86 94 L 03/17/16 08:11 03/17/16 08:11 03/17/16 11:32 03/17/16 08:11 03/17/16 11:32 General appearance: Present: cooperative, pleasant, no acute distress, answers questions appropriately - Respiratory Respiratory exam: Present: decreased breath sounds - Cardiovascular Cardiovascular exam: Present: RRR, +S1, +S2 Additional comments: Loud Late systolic murmur 3/6 in RUSB frequent pvc's - GI/Abdominal GI/Abdominal exam: Present: soft, no peritoneal signs - Extremities Exam Extremities exam: Present: warm, radial pulses palpable and symetrical Internal Medicine: Result - Labs CBC & Chem 7: 03/16/16 03:50 03/16/16 03:50 - ABG Interpretation ABG results: ABG ABG pH 7.40 pH Units (7.32-7.45) 03/01/16 21:18 ABG pCO2 43 mmHg (35-45) 03/01/16 21:18 ABG pO2 55 mmHg (85-104) L 03/01/16 21:18 ABG O2 Saturation 88 % (95-98) L 03/01/16 21:18 PT/INR, D-dimer PT 12.6 Seconds (9.4-12.1) H 03/01/16 19:46 Consult Discharge Plan - Plan Instructions: Heart Failure (DC), Acute Respiratory Distress Syndrome (DC), Urinary Tract Infection in Men (DC), Diabetes Mellitus Type 2 in Adults (DC), Sepsis (DC), Chronic Hypertension (DC), Pneumonia (DC), Dementia, Certified Hyperbaric Technologist (GEN) [facility]errals: [facility] [Primary Care Provider] -
--- NOTE | 2016-03-17 17:04 | Cardiology Consult Note ---
Date of Encounter: 03/17/16 Time of Encounter: 17:00 Assessment and Plan (1) Aortic stenosis Current Visit: Yes Status: Acute Mr. Edge is an 80-year-old who originally presented for respiratory insufficiency and has been treated for pneumonia/sepsis. Prior to discharge, a murmur was noted, which prompted this consultation. An echocardiogram performed during this stay demonstrates a severely calcified aortic valve with reduced mobility. The leaflets were not well visualized in the short axis images. By Doppler, moderate aortic stenosis is suggested. Clinically, the murmur is mid to late peaking and high-pitched, suggesting more severe aortic stenosis. Second heart sound is present. His overall LV function appears to be normal and no LVH was described on echocardiogram. Given his advanced age, baseline dementia, multiple comorbidities, and current pneumonia - I would not recommend any further cardiac testing at this time. Recommend outpatient monitoring and follow-up regarding aortic stenosis. Please call me with any questions or concerns. Qualifiers: Cardiac valve disease etiology: nonrheumatic Qualified Code(s): I35.0 - Nonrheumatic aortic (valve) stenosis Discussion w patient/family: The assessment and plan as outlined above was discussed with the patient and/or family members who expressed understanding and agreement. All questions were answered. Thank you for involving us in the care of your patient. Please call with any questions. History of Present Illness Consult date: 03/17/16 Requesting physician: Leonard Davidson Consult reason: Murmur Chief complaint: Respiratory insufficiency History of present illness: Mr. Edge is a 80 year old male on 03/01/2016. He was treated for respiratory insufficiency and diagnosed with pneumonia. Patient has baseline Alzheimer's and is not a good historian. He was noted to have a cardiac murmur during his stay which prompted this consultation. Upon my evaluation, he is sitting in a chair. He does not seem to be in any distress. He does deny any chest pain or discomfort. Echocardiogram 03/09/2016: LVEF 50%. Normal LV size and function. Dilated RV with normal function. Mild diastolic dysfunction of the left ventricle. Severely calcified aortic valve with reduced mobility. Doppler measurements suggest moderately severe aortic stenosis. Mild mitral regurgitation. Consider repeat study for further evaluation of aortic valve recommended. Past Med Surg Social Fam HX - Past Medical History Medical history: CHF, coronary artery disease, dementia, diabetes, GERD, hyperlipidemia, hypertension, peripheral artery disease, renal disease Psychiatric history: PTSD - Past Surgical History Surgical History: no surgical history - Social History Smoking Status: Former smoker Smokeless Tobacco Status: No Alcohol use: none Drug use: none Medications and Allergies Atenolol [Tenormin] 12.5 mg PO DAILY 02/19/16 [History] Finasteride [Proscar] 5 mg PO DAILY 02/19/16 [History] Furosemide [Lasix] 20 mg PO DAILY 02/19/16 [History] GlipiZIDE [Glucotrol] 5 mg PO BID 02/19/16 [History] Ketorolac OPTH Soln [Acular] 1 drop LEFT EYE TID 02/19/16 [History] Linagliptin [Tradjenta] 5 mg PO DAILY 02/19/16 [History] Lisinopril [Zestril] 40 mg PO DAILY 02/19/16 [History] Magnesium Oxide 420 mg PO BID 02/19/16 [History] Moxifloxacin OPTH Drops [Vigamox] 1 drop LEFT EYE QID 02/19/16 [History] Omeprazole 20 mg PO DAILY 02/19/16 [History] PrednisoLONE Acetate 1% Opth [PredFORTE 1%] 1 drop LEFT EYE QID 02/19/16 [ History] Simvastatin [Zocor] 40 mg PO DAILY 02/19/16 [History] Tamsulosin [Flomax] 0.4 mg PO BID 03/02/16 [History] Allergies metformin Adverse Reaction (Verified 02/19/16 20:30) See Comments Penicillins [PCN] Adverse Reaction (Verified 02/19/16 20:30) See Comments ROS unobtainable: due to mental status, other (Patient is a poor historian.) All Systems Review: A 10-system review of systems was performed and is negative for pertinent findings except as documented above in the HPI. Physical Examination Vital Signs, Last 4 Hours Temp Pulse Resp BP Pulse Ox 03/17/16 16:27 18 95 03/17/16 16:06 98 F 81 16 103/54 97 General: Conversant, No Apparent Distress, Other (Dementia.) HEENT: Atraumatic, Normocephaly, Mucus Membranes Moist Neck: No JVD, Normal carotid pulses Cardiac: Reg Rate and Rhythm, Normal S1 and S2, Other (Grade 3 systolic murmur loudest at the upper right sternal border.) Lungs: Normal Breath Sounds, No Wheeze, Rales, Rhonchi Neuro: Alert and responsive, No focal deficits noted Abdomen: Soft, Non-Tender Skin: No rashes noted on visualized skin Musculoskeletal: No Chest Wall Tenderness Extremities: No Clubbing, No Cyanosis, No Edema Results 03/16/16 03:50 03/16/16 03:50 - Imaging and Cardiology Echo: report reviewed - EKG Interpretation EKG results cardiology: personally reviewed Consult Discharge Plan - Plan Instructions: Heart Failure (DC), Acute Respiratory Distress Syndrome (DC), Urinary Tract Infection in Men (DC), Diabetes Mellitus Type 2 in Adults (DC), Sepsis (DC), Chronic Hypertension (DC), Pneumonia (DC), Dementia, Firer Locomotive Crane (GEN) [facility]errals: [facility] [Primary Care Provider] -
[2016-03-17] MEDS: Melatonin 3 MG TABLET PO SCH (21:18)
[2016-03-17] MEDS: Mirtazapine 15 MG TABLET PO SCH (21:19)
[2016-03-18] MEDS: Ipratropium/Albuterol Neb 3 ML IH SCH ×6 (00:04→20:18)
[2016-03-18] MEDS: *HR* HYDROcodone/Acet 5/325 mg TABLET PO PRN (09:02)
[2016-03-18] MEDS: Magnesium Oxide 400 MG TABLET PO SCH ×2 (09:02→21:06)
[2016-03-18] MEDS: Aspirin 81 MG TAB.CHEW PO SCH (09:03)
[2016-03-18] MEDS: predniSONE 20 MG TABLET PO SCH (09:03)
[2016-03-18] MEDS: Lactobacillus 1 EACH CAP.SPRINK PO SCH (09:03)
[2016-03-18] MEDS: Finasteride 5 MG TABLET PO SCH (09:03)
[2016-03-18] MEDS: Insulin LISPRO 300 UNITS/3 ML VIAL SQ SCH ×4 (09:04→21:06)
[2016-03-18] MEDS: Insulin DETEMIR 100 UNIT/ML X5UNITS SQ SCH ×2 (09:11→21:09)
--- NOTE | 2016-03-18 09:55 | Internal Med Progress Note ---
<Héctor Garza - Last Filed: 03/18/16 17:23> Date of Encounter: 03/18/16 Time of Encounter: 08:00 - Assessment and plan (1) Aortic stenosis Current Visit: Yes Status: Acute Assessment and plan: -Murmur is not new. Blood culture negative. -Evaluated by cardiology. Patient asymptomatic at rest. Will treat conservatively. Qualifiers: Cardiac valve disease etiology: nonrheumatic Qualified Code(s): I35.0 - Nonrheumatic aortic (valve) stenosis (2) Sepsis Current Visit: Yes Status: Acute Assessment and plan: -Resolved. -Previous concern: Secondary to pneumonia. HCAP. Blood culture negative. Abx completed while in [facility] -Despite patient having an elevated WBC a couple of days ago. I feel it is unncessary to redraw labs. Patient is clinically stable, feeling better. No cough and lungs are CTAB. Thought the repeat CXR appeared similar to previous CXR. If Patient condition worsen or becomes more SOB, will redraw labs and evaluate. Qualifiers: Sepsis type: sepsis due to unspecified organism Qualified Code(s): A41.9 - Sepsis, unspecified organism (3) Dementia Current Visit: No Status: Chronic Qualifiers: Dementia type: Alzheimer's disease Alzheimer's disease onset: unspecified onset Dementia behavioral disturbance: without behavioral disturbance Qualified Code(s): G30.9 - Alzheimer's disease, unspecified; F02.80 - Dementia in other diseases classified elsewhere without behavioral disturbance (4) Diabetes Current Visit: No Status: Chronic Assessment and plan: -Uncontrolled. -Please continue to check and make appropriate adjustments to insulin medication. Qualifiers: Diabetes mellitus type: type 2 Diabetes mellitus complication status: without complication Diabetes mellitus tank terminal gauger insulin use: without senior care use Qualified Code(s): E11.9 - Type 2 diabetes mellitus without complications (5) ax survey worker involved in patient's care Current Visit: Yes Status: Acute Assessment and plan: -[facility] -Spoke with clinical social worker personally. She is working hard to try to get patient discharged to proper facility. - Time Spent With Patient 25 - 35 minutes - Subjective Interval history: Patient states he feels great today. Back to baseline. No questions or concerns. Denies SOB, CP, urinary or bowel problems. Does have catheter for chronic urinary retention (came to [facility] with a catheter). Patient wanting to be discharge soon. - Constitutional Vitals: Temp Pulse Resp BP Pulse Ox 97.4 F L 88 14 135/57 95 03/18/16 08:10 03/18/16 08:10 03/18/16 08:10 03/18/16 08:10 03/18/16 04:30 General appearance: Present: cooperative, pleasant, no acute distress, answers questions appropriately - Head Head exam: Present: atraumatic, normal inspection - Respiratory Respiratory exam: Present: CTAB - Cardiovascular Cardiovascular exam: Present: RRR, systolic murmur - GI/Abdominal GI/Abdominal exam: Present: soft, no peritoneal signs. Absent: tenderness - Neurological Exam Neurological exam: Present: alert, no focal deficits - Psychiatric Psychiatric exam: Present: normal affect, normal mood Internal Medicine: Result - Labs CBC & Chem 7: 03/16/16 03:50 03/16/16 03:50 - ABG Interpretation ABG results: ABG ABG pH 7.40 pH Units (7.32-7.45) 03/01/16 21:18 ABG pCO2 43 mmHg (35-45) 03/01/16 21:18 ABG pO2 55 mmHg (85-104) L 03/01/16 21:18 ABG O2 Saturation 88 % (95-98) L 03/01/16 21:18 PT/INR, D-dimer PT 12.6 Seconds (9.4-12.1) H 03/01/16 19:46 - Impressions Impressions Chest X-Ray 03/17/16 14:29 IMPRESSION: No acute cardiopulmonary process. D/ / Phillip Conway MD / Phillip Conway MD Interpreting Provider: Phillip Conway MD - Diagnostic Studies Chest x-ray Status: image reviewed by me Additional comments: SImilar CXR when compared with previous. - VTE Documentation of Mechanical Device: Graduated compression elastic hosiery Consult Discharge Plan - Plan Instructions: Heart Failure (DC), Acute Respiratory Distress Syndrome (DC), Urinary Tract Infection in Men (DC), Diabetes Mellitus Type 2 in Adults (DC), Sepsis (DC), Chronic Hypertension (DC), Pneumonia (DC), Dementia, Machine [employer] Former (GEN) [facility]errals[facility] [Primary Care Provider[facility] - <Endy Tran - Last Filed: 03/18/16 18:14> Date of Encounter: 03/18/16 - Assessment and plan (1) Acute respiratory failure with hypoxia Current Visit: Yes Status: Resolved (2) Aortic stenosis Current Visit: Yes Status: Chronic Qualifiers: Cardiac valve disease etiology: nonrheumatic Qualified Code(s): I35.0 - Nonrheumatic aortic (valve) stenosis (3) Dementia Current Visit: No Status: Chronic Qualifiers: Dementia type: Alzheimer's disease Alzheimer's disease onset: unspecified onset Dementia behavioral disturbance: without behavioral disturbance Qualified Code(s): G30.9 - Alzheimer's disease, unspecified; F02.80 - Dementia in other diseases classified elsewhere without behavioral disturbance (4) Hypertension Current Visit: No Status: Chronic Qualifiers: Hypertension type: essential hypertension Qualified Code(s): I10 - Essential (primary) hypertension (5) Dysphagia Current Visit: No Status: Chronic Qualifiers: Dysphagia type: pharyngeal phase Qualified Code(s): R13.13 - Dysphagia, pharyngeal phase - Constitutional Vitals: Temp Pulse Resp BP Pulse Ox 98.1 F 93 18 129/61 96 03/18/16 15:57 03/18/16 15:57 03/18/16 16:26 03/18/16 15:57 03/18/16 16:26 Internal Medicine: Result - Labs CBC & Chem 7: 03/16/16 03:50 03/16/16 03:50 - ABG Interpretation ABG results: ABG ABG pH 7.40 pH Units (7.32-7.45) 03/01/16 21:18 ABG pCO2 43 mmHg (35-45) 03/01/16 21:18 ABG pO2 55 mmHg (85-104) L 03/01/16 21:18 ABG O2 Saturation 88 % (95-98) L 03/01/16 21:18 PT/INR, D-dimer PT 12.6 Seconds (9.4-12.1) H 03/01/16 19:46 - Attending Attestation I examined this patient and my medical decision-making was reviewed with the Resident Physician on 03/18/16. I agree with the documented findings, disposition and treatment plan as described except to the extent set forth below. Mr. Edge is currently admitted for sepsis related to pneumonia and hypoxia. He is awaiting placement in SNF. He remains moderate risk due to potential for worsening respiratory symptoms. Mr. Edge is in the chair. Denies CP or SOB. No fever. Bowels OK. Looking for his socks and shoes. Exam Alert. Comfortable Heart reg Lungs clear now No edema I/P 1. Acute hypoxic resp failure 2. CAP 3. Sepsis - resolved 4. Awaiting placement. Further diagnoses and plan as above.
[2016-03-18] MEDS: Melatonin 3 MG TABLET PO SCH (21:06)
[2016-03-18] MEDS: Mirtazapine 15 MG TABLET PO SCH (21:07)
[2016-03-19] MEDS: Ipratropium/Albuterol Neb 3 ML IH SCH ×7 (00:07→23:47)
[2016-03-19] MEDS: Lactobacillus 1 EACH CAP.SPRINK PO SCH (07:49)
[2016-03-19] MEDS: Magnesium Oxide 400 MG TABLET PO SCH ×2 (07:49→20:48)
[2016-03-19] MEDS: Aspirin 81 MG TAB.CHEW PO SCH (07:49)
[2016-03-19] MEDS: predniSONE 20 MG TABLET PO SCH (07:50)
[2016-03-19] MEDS: Finasteride 5 MG TABLET PO SCH (07:50)
[2016-03-19] MEDS: Insulin LISPRO 300 UNITS/3 ML VIAL SQ SCH ×4 (07:51→20:51)
[2016-03-19] MEDS: Insulin DETEMIR 100 UNIT/ML X5UNITS SQ SCH ×2 (09:08→20:49)
--- NOTE | 2016-03-19 12:45 | Internal Med Progress Note ---
<Héctor Garza - Last Filed: 03/19/16 17:41> Date of Encounter: 03/19/16 Time of Encounter: 08:15 - Assessment and plan (1) Aortic stenosis Current Visit: Yes Status: Chronic Assessment and plan: -Murmur is not new. Blood culture negative. -Evaluated by cardiology. Patient asymptomatic at rest. Will treat conservatively. Qualifiers: Cardiac valve disease etiology: nonrheumatic Qualified Code(s): I35.0 - Nonrheumatic aortic (valve) stenosis (2) Sepsis Current Visit: Yes Status: Resolved Assessment and plan: -Resolved. -Previous concern: Secondary to pneumonia. HCAP. Blood culture negative. Abx completed while in hospital. [facility] -Despite patient having an elevated WBC a couple of days ago. I feel it is unncessary to redraw labs. Patient is clinically stable, feeling better. No cough and lungs are CTAB. Thought the repeat CXR appeared similar to previous CXR. If Patient condition worsen or becomes more SOB, will redraw labs and evaluate. Qualifiers: Sepsis type: sepsis due to unspecified organism Qualified Code(s): A41.9 - Sepsis, unspecified organism (3) Dementia Current Visit: No Status: Chronic Qualifiers: Dementia type: Alzheimer's disease Alzheimer's disease onset: unspecified onset Dementia behavioral disturbance: without behavioral disturbance Qualified Code(s): G30.9 - Alzheimer's disease, unspecified; F02.80 - Dementia in other diseases classified elsewhere without behavioral disturbance (4) Diabetes Current Visit: No Status: Chronic Assessment and plan: -Uncontrolled. -Please continue to check and make appropriate adjustments to insulin medication. Qualifiers: Diabetes mellitus type: type 2 Diabetes mellitus complication status: without complication Diabetes mellitus truck terminal manager insulin use: without truck terminal manager use Qualified Code(s): E11.9 - Type 2 diabetes mellitus without complications (5) steelworker involved in patient's care Current Visit: Yes Status: Acute Assessment and plan: -Has been [facility] -Spoke with renal social worker personally. She is working hard to try to get patient discharged to proper facility. He is unable to care for himself independently. - Time Spent With Patient 25 - 35 minutes - Subjective Interval history: Patient states he feels great today. Back to baseline. No questions. Denies SOB , CP, urinary or bowel problems. Does have catheter for chronic urinary retention (came to [place] with a catheter). No concerns. Patient wanting to be discharge soon. - Constitutional Vitals: Temp Pulse Resp BP Pulse Ox 98.1 F 77 16 128/62 94 L 03/19/16 07:44 03/19/16 07:44 03/19/16 11:24 03/19/16 07:44 03/19/16 11:24 General appearance: Present: cooperative, pleasant, no acute distress, answers questions appropriately - Head Head exam: Present: atraumatic, normal inspection - Respiratory Respiratory exam: Present: decreased breath sounds, rhonchi (mild ) - Cardiovascular Cardiovascular exam: Present: RRR, systolic murmur (aortic stenosis ). Absent: diastolic murmur - GI/Abdominal GI/Abdominal exam: Present: soft, no peritoneal signs - Additional comments: [place] in place - Neurological Exam Neurological exam: Present: alert. Absent: speech deficit - Psychiatric Psychiatric exam: Present: normal affect, normal mood Internal Medicine: Result - Labs CBC & Chem 7: 03/16/16 03:50 03/16/16 03:50 - ABG Interpretation ABG results: ABG ABG pH 7.40 pH Units (7.32-7.45) 03/01/16 21:18 ABG pCO2 43 mmHg (35-45) 03/01/16 21:18 ABG pO2 55 mmHg (85-104) L 03/01/16 21:18 ABG O2 Saturation 88 % (95-98) L 03/01/16 21:18 PT/INR, D-dimer PT 12.6 Seconds (9.4-12.1) H 03/01/16 19:46 - VTE Documentation of Mechanical Device: Graduated compression elastic hosiery Consult Discharge Plan - Plan Instructions: Heart Failure (DC), Acute Respiratory Distress Syndrome (DC), Urinary Tract Infection in Men (DC), Diabetes Mellitus Type 2 in Adults (DC), Sepsis (DC), Chronic Hypertension (DC), Pneumonia (DC), Dementia, 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) [facility]errals: [facility] [Primary Care Provider] - <Endy Tran - Last Filed: 03/20/16 15:17> Date of Encounter: 03/19/16 - Assessment and plan (1) Acute respiratory failure with hypoxia Current Visit: Yes Status: Resolved (2) Aortic stenosis Current Visit: Yes Status: Chronic Qualifiers: Cardiac valve disease etiology: nonrheumatic Qualified Code(s): I35.0 - Nonrheumatic aortic (valve) stenosis (3) Dementia Current Visit: No Status: Chronic Qualifiers: Dementia type: Alzheimer's disease Alzheimer's disease onset: unspecified onset Dementia behavioral disturbance: without behavioral disturbance Qualified Code(s): G30.9 - Alzheimer's disease, unspecified; F02.80 - Dementia in other diseases classified elsewhere without behavioral disturbance (4) Hypertension Current Visit: No Status: Chronic Qualifiers: Hypertension type: essential hypertension Qualified Code(s): I10 - Essential (primary) hypertension (5) Dysphagia Current Visit: No Status: Chronic Qualifiers: Dysphagia type: pharyngeal phase Qualified Code(s): R13.13 - Dysphagia, pharyngeal phase - Constitutional Vitals: Temp Pulse Resp BP Pulse Ox 97.8 F 89 18 131/50 94 L 03/20/16 08:00 03/20/16 08:00 03/20/16 11:16 03/20/16 08:00 03/20/16 11:16 Internal Medicine: Result - Labs CBC & Chem 7: 03/16/16 03:50 03/16/16 03:50 - ABG Interpretation ABG results: ABG ABG pH 7.40 pH Units (7.32-7.45) 03/01/16 21:18 ABG pCO2 43 mmHg (35-45) 03/01/16 21:18 ABG pO2 55 mmHg (85-104) L 03/01/16 21:18 ABG O2 Saturation 88 % (95-98) L 03/01/16 21:18 PT/INR, D-dimer PT 12.6 Seconds (9.4-12.1) H 03/01/16 19:46 - Attending Attestation I examined this patient and my medical decision-making was reviewed with the Resident Physician on 03/19/16. I agree with the documented findings, disposition and treatment plan as described except to the extent set forth below. Mr. Edge is currently admitted for acute sepsis due to pneumonia. He remains moderate risk due to indwelling henderson and potential for worsening clinical condition. [facility] Mr. Edge has no complaints today. He feels OK. No CP or SOB. Exam Alert. Comfortable Heart reg with murmur Lungs clear I/P 1. Sepsis resolved 2. Pneumonia improved 3. Dementia Awaiting placement.
[2016-03-19] MEDS: Furosemide 20 MG TABLET PO PRN (16:29)
[2016-03-19] MEDS: Melatonin 3 MG TABLET PO SCH (20:47)
[2016-03-19] MEDS: Mirtazapine 15 MG TABLET PO SCH (20:48)
[2016-03-20] MEDS: Ipratropium/Albuterol Neb 3 ML IH SCH ×6 (03:16→23:29)
[2016-03-20] MEDS: Insulin LISPRO 300 UNITS/3 ML VIAL SQ SCH ×4 (08:59→20:29)
[2016-03-20] MEDS: Finasteride 5 MG TABLET PO SCH (09:04)
[2016-03-20] MEDS: Lactobacillus 1 EACH CAP.SPRINK PO SCH (09:05)
[2016-03-20] MEDS: predniSONE 20 MG TABLET PO SCH (09:05)
[2016-03-20] MEDS: Aspirin 81 MG TAB.CHEW PO SCH (09:06)
[2016-03-20] MEDS: Magnesium Oxide 400 MG TABLET PO SCH ×2 (09:06→20:19)
--- NOTE | 2016-03-20 09:56 | Internal Med Progress Note ---
<Héctor Garza - Last Filed: 03/20/16 17:05> Date of Encounter: 03/20/16 Time of Encounter: 08:15 - Assessment and plan (1) Aortic stenosis Current Visit: Yes Status: Chronic Assessment and plan: -Murmur is not new. Blood culture negative. -Evaluated by cardiology. Patient asymptomatic at rest. Will treat conservatively. Qualifiers: Cardiac valve disease etiology: nonrheumatic Qualified Code(s): I35.0 - Nonrheumatic aortic (valve) stenosis (2) Sepsis Current Visit: Yes Status: Resolved Assessment and plan: -Resolved. Previous concern: Secondary to pneumonia. HCAP. Blood culture negative. Abx completed while in hospital. [facility] -Despite patient having an elevated WBC a couple of days ago. I feel it is unncessary to redraw labs. Patient is clinically stable, feeling better. No cough and lungs are CTAB. Thought the repeat CXR appeared similar to previous CXR. If Patient condition worsen or becomes more SOB, will redraw labs and evaluate. Qualifiers: Sepsis type: sepsis due to unspecified organism Qualified Code(s): A41.9 - Sepsis, unspecified organism (3) Dementia Current Visit: No Status: Chronic Qualifiers: Dementia type: Alzheimer's disease Alzheimer's disease onset: unspecified onset Dementia behavioral disturbance: without behavioral disturbance Qualified Code(s): G30.9 - Alzheimer's disease, unspecified; F02.80 - Dementia in other diseases classified elsewhere without behavioral disturbance (4) Diabetes Current Visit: No Status: Chronic Assessment and plan: -Uncontrolled. -Please continue to check and make appropriate adjustments to insulin medication. Qualifiers: Diabetes mellitus type: type 2 Diabetes mellitus complication status: without complication Diabetes mellitus skilled nursing insulin use: without skilled nursing use Qualified Code(s): E11.9 - Type 2 diabetes mellitus without complications (5) order worker involved in patient's care Current Visit: Yes Status: Acute Assessment and plan: -[facility] been [facility] -Spoke with psychotherapist social worker personally. She is working hard to try to get patient discharged to proper facility. He is unable to care for himself independently. - Time Spent With Patient less than 15 minutes - Subjective Interval history: Patient states he feels great today. Back to baseline. No questions. Denies SOB , CP, urinary or bowel problems. Does have catheter for chronic urinary retention (came to [place] with a catheter). No concerns. Patient wanting to be discharge soon. No update. Patient is sitting up in chair, resting comfortably and watching TV - Constitutional Vitals: Temp Pulse Resp BP Pulse Ox 97.8 F 89 18 131/50 95 03/20/16 08:00 03/20/16 08:00 03/20/16 08:07 03/20/16 08:00 03/20/16 08:07 General appearance: Present: cooperative, pleasant, no acute distress, answers questions appropriately - Respiratory Respiratory exam: Present: CTAB - Cardiovascular Cardiovascular exam: Present: RRR, systolic murmur - GI/Abdominal GI/Abdominal exam: Present: soft, no peritoneal signs. Absent: tenderness - Additional comments: Catheter secure. - Neurological Exam Neurological exam: Present: alert, oriented X3 - Psychiatric Psychiatric exam: Present: normal affect, normal mood Internal Medicine: Result - Labs CBC & Chem 7: 03/16/16 03:50 03/16/16 03:50 - ABG Interpretation ABG results: ABG ABG pH 7.40 pH Units (7.32-7.45) 03/01/16 21:18 ABG pCO2 43 mmHg (35-45) 03/01/16 21:18 ABG pO2 55 mmHg (85-104) L 03/01/16 21:18 ABG O2 Saturation 88 % (95-98) L 03/01/16 21:18 PT/INR, D-dimer PT 12.6 Seconds (9.4-12.1) H 03/01/16 19:46 - VTE Documentation of Mechanical Device: Graduated compression elastic hosiery Consult Discharge Plan - Plan Instructions: Heart Failure (DC), Acute Respiratory Distress Syndrome (DC), Urinary Tract Infection in Men (DC), Diabetes Mellitus Type 2 in Adults (DC), Sepsis (DC), Chronic Hypertension (DC), Pneumonia (DC), Dementia, Parking Assistant (GEN) [facility]errals[facility] [Primary Care Provider[facility] - <Endy Tran - Last Filed: 03/20/16 17:53> Date of Encounter: 03/20/16 - Assessment and plan (1) Acute respiratory failure with hypoxia Current Visit: Yes Status: Resolved (2) Aortic stenosis Current Visit: Yes Status: Chronic Qualifiers: Cardiac valve disease etiology: nonrheumatic Qualified Code(s): I35.0 - Nonrheumatic aortic (valve) stenosis (3) Dementia Current Visit: No Status: Chronic Qualifiers: Dementia type: Alzheimer's disease Alzheimer's disease onset: unspecified onset Dementia behavioral disturbance: without behavioral disturbance Qualified Code(s): G30.9 - Alzheimer's disease, unspecified; F02.80 - Dementia in other diseases classified elsewhere without behavioral disturbance (4) Hypertension Current Visit: No Status: Chronic Qualifiers: Hypertension type: essential hypertension Qualified Code(s): I10 - Essential (primary) hypertension (5) Dysphagia Current Visit: No Status: Chronic Qualifiers: Dysphagia type: pharyngeal phase Qualified Code(s): R13.13 - Dysphagia, pharyngeal phase - Constitutional Vitals: Temp Pulse Resp BP Pulse Ox 98.1 F 86 18 133/71 96 03/20/16 16:46 03/20/16 16:46 03/20/16 16:46 03/20/16 16:46 03/20/16 16:46 Internal Medicine: Result - Labs CBC & Chem 7: 03/16/16 03:50 03/16/16 03:50 - ABG Interpretation ABG results: ABG ABG pH 7.40 pH Units (7.32-7.45) 03/01/16 21:18 ABG pCO2 43 mmHg (35-45) 03/01/16 21:18 ABG pO2 55 mmHg (85-104) L 03/01/16 21:18 ABG O2 Saturation 88 % (95-98) L 03/01/16 21:18 PT/INR, D-dimer PT 12.6 Seconds (9.4-12.1) H 03/01/16 19:46 - Attending Attestation I examined this patient and my medical decision-making was reviewed with the Resident Physician on 03/20/16. I agree with the documented findings, disposition and treatment plan as described except to the extent set forth below. Mr. Edge is currently admitted for sepsis due to pneumonia (resolved) and aortic stenosis. He remains moderate risk due to potential recurrence of infection and management of indwelling henderson catheter. He is awaiting placement. Mr. Edge feels OK. No CP or SOB. No cough. No GI symptoms. Exam Alert. Comfortable. Heart reg with murmur. Lungs clear I/P 1. Sepsis resolved. 2. Dementia 3. Aortic stenosis. Further diagnoses and plan as above. Awaiting placement.
[2016-03-20] MEDS: Insulin DETEMIR 100 UNIT/ML X5UNITS SQ SCH ×2 (11:28→20:27)
[2016-03-20] MEDS: Mirtazapine 15 MG TABLET PO SCH (20:18)
[2016-03-20] MEDS: Melatonin 3 MG TABLET PO SCH (20:19)
[2016-03-20] MEDS ORDERED: Acetaminophen 325 MG TABLET PO PRN (22:12)
[2016-03-21] MEDS: Ipratropium/Albuterol Neb 3 ML IH SCH ×6 (04:26→23:09)
[2016-03-21] MEDS: Aspirin 81 MG TAB.CHEW PO SCH (07:40)
[2016-03-21] MEDS: Lactobacillus 1 EACH CAP.SPRINK PO SCH (07:40)
[2016-03-21] MEDS: predniSONE 20 MG TABLET PO SCH (07:41)
[2016-03-21] MEDS: Magnesium Oxide 400 MG TABLET PO SCH ×2 (07:41→21:50)
[2016-03-21] MEDS: Finasteride 5 MG TABLET PO SCH (07:41)
[2016-03-21] MEDS: Insulin DETEMIR 100 UNIT/ML X5UNITS SQ SCH ×2 (07:47→21:55)
[2016-03-21] MEDS: Insulin LISPRO 300 UNITS/3 ML VIAL SQ SCH ×4 (07:47→21:56)
--- NOTE | 2016-03-21 13:55 | Internal Med Progress Note ---
<Héctor Garza - Last Filed: 03/21/16 13:53> Date of Encounter: 03/21/16 Time of Encounter: 08:30 - Assessment and plan (1) Aortic stenosis Current Visit: Yes Status: Chronic Assessment and plan: -Murmur is not new. Blood culture negative. -Evaluated by cardiology. Patient asymptomatic at rest. Will treat conservatively. Qualifiers: Cardiac valve disease etiology: nonrheumatic Qualified Code(s): I35.0 - Nonrheumatic aortic (valve) stenosis (2) Sepsis Current Visit: Yes Status: Resolved Assessment and plan: -Resolved. Previous concern: Secondary to pneumonia. HCAP. Blood culture negative. Abx completed while in [facility] -Despite patient having an elevated WBC a couple of days ago. I feel it is unncessary to redraw labs. Patient is clinically stable, feeling better. No cough and lungs are CTAB. Thought the repeat CXR appeared similar to previous CXR. If Patient condition worsen or becomes more SOB, will redraw labs and evaluate. Qualifiers: Sepsis type: sepsis due to unspecified organism Qualified Code(s): A41.9 - Sepsis, unspecified organism (3) Dementia Current Visit: No Status: Chronic Qualifiers: Dementia type: Alzheimer's disease Alzheimer's disease onset: unspecified onset Dementia behavioral disturbance: without behavioral disturbance Qualified Code(s): G30.9 - Alzheimer's disease, unspecified; F02.80 - Dementia in other diseases classified elsewhere without behavioral disturbance (4) Diabetes Current Visit: No Status: Chronic Assessment and plan: -Uncontrolled. -Please continue to check and make appropriate adjustments to insulin medication. Qualifiers: Diabetes mellitus type: type 2 Diabetes mellitus complication status: without complication Diabetes mellitus local intermodal truck driver insulin use: without fdc use Qualified Code(s): E11.9 - Type 2 diabetes mellitus without complications (5) field worker involved in patient's care Current Visit: Yes Status: Acute Assessment and plan: -[facility] -Spoke with social work assistant personally. She is working hard to try to get patient discharged to proper facility. He is unable to care for himself independently. - Time Spent With Patient less than 15 minutes - Subjective Interval history: Patient states he feels great today. Back to baseline. No questions. Denies SOB , CP, urinary or bowel problems. Does have catheter for chronic urinary retention (came to [place] with a catheter). No concerns. Patient wanting to be discharge soon. No changes. Patient is sitting up in chair, resting comfortably and watching TV - Constitutional Vitals: Temp Pulse Resp BP Pulse Ox 98.2 F 79 18 107/58 94 L 03/21/16 10:31 03/21/16 10:31 03/21/16 11:21 03/21/16 10:31 03/21/16 11:21 General appearance: Present: cooperative, pleasant, no acute distress, answers questions appropriately - Respiratory Respiratory exam: Present: rhonchi - Cardiovascular Cardiovascular exam: Present: RRR, systolic murmur. Absent: tachycardia - GI/Abdominal GI/Abdominal exam: Present: soft, no peritoneal signs. Absent: tenderness - Other Additional findings: Patient is resting comfortably in bed. No changes in physical exam compared to yesterday Internal Medicine: Result - Labs CBC & Chem 7: 03/16/16 03:50 03/16/16 03:50 - ABG Interpretation ABG results: ABG ABG pH 7.40 pH Units (7.32-7.45) 03/01/16 21:18 ABG pCO2 43 mmHg (35-45) 03/01/16 21:18 ABG pO2 55 mmHg (85-104) L 03/01/16 21:18 ABG O2 Saturation 88 % (95-98) L 03/01/16 21:18 PT/INR, D-dimer PT 12.6 Seconds (9.4-12.1) H 03/01/16 19:46 - VTE Documentation of Mechanical Device: Graduated compression elastic hosiery Consult Discharge Plan - Plan Instructions: Heart Failure (DC), Acute Respiratory Distress Syndrome (DC), Urinary Tract Infection in Men (DC), Diabetes Mellitus Type 2 in Adults (DC), Sepsis (DC), Chronic Hypertension (DC), Pneumonia (DC), Dementia, 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) [facility] Care Provider[facility] - <Endy Tran - Last Filed: 03/21/16 17:05> Date of Encounter: 03/21/16 - Assessment and plan (1) Acute respiratory failure with hypoxia Current Visit: Yes Status: Resolved (2) Aortic stenosis Current Visit: Yes Status: Chronic Qualifiers: Cardiac valve disease etiology: nonrheumatic Qualified Code(s): I35.0 - Nonrheumatic aortic (valve) stenosis (3) Dementia Current Visit: No Status: Chronic Qualifiers: Dementia type: Alzheimer's disease Alzheimer's disease onset: unspecified onset Dementia behavioral disturbance: without behavioral disturbance Qualified Code(s): G30.9 - Alzheimer's disease, unspecified; F02.80 - Dementia in other diseases classified elsewhere without behavioral disturbance (4) Hypertension Current Visit: No Status: Chronic Qualifiers: Hypertension type: essential hypertension Qualified Code(s): I10 - Essential (primary) hypertension (5) Dysphagia Current Visit: No Status: Chronic Qualifiers: Dysphagia type: pharyngeal phase Qualified Code(s): R13.13 - Dysphagia, pharyngeal phase - Constitutional Vitals: Temp Pulse Resp BP Pulse Ox 98.2 F 79 18 107/58 94 L 03/21/16 10:31 03/21/16 10:31 03/21/16 11:21 03/21/16 10:31 03/21/16 11:21 Internal Medicine: Result - Labs CBC & Chem 7: 03/16/16 03:50 03/16/16 03:50 - ABG Interpretation ABG results: ABG ABG pH 7.40 pH Units (7.32-7.45) 03/01/16 21:18 ABG pCO2 43 mmHg (35-45) 03/01/16 21:18 ABG pO2 55 mmHg (85-104) L 03/01/16 21:18 ABG O2 Saturation 88 % (95-98) L 03/01/16 21:18 PT/INR, D-dimer PT 12.6 Seconds (9.4-12.1) H 03/01/16 19:46 - Attending Attestation I examined this patient and my medical decision-making was reviewed with the Resident Physician on 03/21/16. I agree with the documented findings, disposition and treatment plan as described except to the extent set forth below. Mr. Edge is currently admitted for management of sepsis related to pneumonia. He remains moderate risk due to his comorbid conditions. Mr. Edge has no specific complaints. He is drinking a lot at times. Awaiting d/c plans. Exam Alert. Comfortable Heart irreg Lungs clear I/P 1. Sepsis and PNA - resolved 2. Aortic stenosis Further diagnoses and plan as above. Awaiting d/c to [place].
[2016-03-21] MEDS: Melatonin 3 MG TABLET PO SCH (21:50)
[2016-03-21] MEDS: Mirtazapine 15 MG TABLET PO SCH (21:51)
[2016-03-22] MEDS: Ipratropium/Albuterol Neb 3 ML IH SCH ×5 (04:21→20:36)
[2016-03-22] MEDS ORDERED: PREDNISONE 5 MG PO SCH (09:00)
[2016-03-22] MEDS: Magnesium Oxide 400 MG TABLET PO SCH ×2 (09:09→22:06)
[2016-03-22] MEDS: Insulin DETEMIR 100 UNIT/ML X5UNITS SQ SCH ×2 (09:12→22:10)
[2016-03-22] MEDS: Aspirin 81 MG TAB.CHEW PO SCH (09:12)
[2016-03-22] MEDS: Finasteride 5 MG TABLET PO SCH (09:12)
[2016-03-22] MEDS: Insulin LISPRO 300 UNITS/3 ML VIAL SQ SCH ×4 (09:13→22:11)
[2016-03-22] MEDS: Lactobacillus 1 EACH CAP.SPRINK PO SCH (09:17)
[2016-03-22] MEDS: predniSONE 5 MG TABLET PO SCH (09:44)
--- NOTE | 2016-03-22 10:10 | Internal Med Progress Note ---
<Héctor Garza - Last Filed: 03/22/16 10:09> Date of Encounter: 03/22/16 - Assessment and plan (1) Aortic stenosis Current Visit: Yes Status: Chronic Qualifiers: Cardiac valve disease etiology: nonrheumatic Qualified Code(s): I35.0 - Nonrheumatic aortic (valve) stenosis (2) Sepsis Current Visit: Yes Status: Resolved Qualifiers: Sepsis type: sepsis due to unspecified organism Qualified Code(s): A41.9 - Sepsis, unspecified organism (3) Dementia Current Visit: No Status: Chronic Qualifiers: Dementia type: Alzheimer's disease Alzheimer's disease onset: unspecified onset Dementia behavioral disturbance: without behavioral disturbance Qualified Code(s): G30.9 - Alzheimer's disease, unspecified; F02.80 - Dementia in other diseases classified elsewhere without behavioral disturbance (4) Diabetes Current Visit: No Status: Chronic Qualifiers: Diabetes mellitus type: type 2 Diabetes mellitus complication status: without complication Diabetes mellitus chcf insulin use: without telescope repairer use Qualified Code(s): E11.9 - Type 2 diabetes mellitus without complications (5) market garden worker involved in patient's care Current Visit: Yes Status: Acute - Subjective Interval history: Patient states he feels great today. Back to baseline. No questions. Denies SOB , CP, urinary or bowel problems. Does have catheter for chronic urinary retention (came to [place] with a catheter). No concerns. Patient wanting to be discharge soon. No changes. Patient is sitting up in chair, resting comfortably and watching TV - Constitutional Vitals: Temp Pulse Resp BP Pulse Ox 97.9 F 91 16 138/63 95 03/22/16 06:55 03/22/16 06:52 03/22/16 07:52 03/22/16 06:52 03/22/16 07:52 General appearance: Present: cooperative, pleasant, no acute distress, answers questions appropriately Internal Medicine: Result - Labs CBC & Chem 7: 03/16/16 03:50 03/16/16 03:50 - ABG Interpretation ABG results: ABG ABG pH 7.40 pH Units (7.32-7.45) 03/01/16 21:18 ABG pCO2 43 mmHg (35-45) 03/01/16 21:18 ABG pO2 55 mmHg (85-104) L 03/01/16 21:18 ABG O2 Saturation 88 % (95-98) L 03/01/16 21:18 PT/INR, D-dimer PT 12.6 Seconds (9.4-12.1) H 03/01/16 19:46 - VTE Documentation of Mechanical Device: Graduated compression elastic hosiery Consult Discharge Plan - Plan Instructions: Heart Failure (DC), Acute Respiratory Distress Syndrome (DC), Urinary Tract Infection in Men (DC), Diabetes Mellitus Type 2 in Adults (DC), Sepsis (DC), Chronic Hypertension (DC), Pneumonia (DC), Dementia, Metal 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) [facility]errals: [facility] [Primary Care Provider[facility] - <Endy Tran - Last Filed: 03/22/16 17:48> Date of Encounter: 03/22/16 Time of Encounter: 08:15 - Assessment and plan (1) Dementia Current Visit: No Status: Chronic Qualifiers: Dementia type: Alzheimer's disease Alzheimer's disease onset: unspecified onset Dementia behavioral disturbance: without behavioral disturbance Qualified Code(s): G30.9 - Alzheimer's disease, unspecified; F02.80 - Dementia in other diseases classified elsewhere without behavioral disturbance (2) Hypertension Current Visit: No Status: Chronic Qualifiers: Hypertension type: essential hypertension Qualified Code(s): I10 - Essential (primary) hypertension (3) Dysphagia Current Visit: No Status: Chronic Qualifiers: Dysphagia type: pharyngeal phase Qualified Code(s): R13.13 - Dysphagia, pharyngeal phase (4) Aortic stenosis Current Visit: Yes Status: Chronic Qualifiers: Cardiac valve disease etiology: nonrheumatic Qualified Code(s): I35.0 - Nonrheumatic aortic (valve) stenosis (5) Acute respiratory failure with hypoxia Current Visit: Yes Status: Resolved - Constitutional Vitals: Temp Pulse Resp BP Pulse Ox 98.2 F 96 15 146/104 96 03/22/16 17:04 03/22/16 17:04 03/22/16 17:04 03/22/16 17:04 03/22/16 17:04 Internal Medicine: Result - Labs CBC & Chem 7: 03/16/16 03:50 03/16/16 03:50 - ABG Interpretation ABG results: ABG ABG pH 7.40 pH Units (7.32-7.45) 03/01/16 21:18 ABG pCO2 43 mmHg (35-45) 03/01/16 21:18 ABG pO2 55 mmHg (85-104) L 03/01/16 21:18 ABG O2 Saturation 88 % (95-98) L 03/01/16 21:18 PT/INR, D-dimer PT 12.6 Seconds (9.4-12.1) H 03/01/16 19:46 - Attending Attestation I examined this patient and my medical decision-making was reviewed with the Resident Physician on 03/22/16. I agree with the documented findings, disposition and treatment plan as described except to the extent set forth below. Mr. Edge is currently admitted for sepsis related to HCAP. He remains moderate risk due to potential for further infectious issues. Mr. Edge is very frustrated today. He really wants to go home. He asked me if he had "a mind problem or a body problem." He denies new pain or dyspnea. Exam Alert. Tearful Heart reg with murmur Lungs clear I/P 1. Sepsis resolved 2. Aortic stenosis [facility] Further diagnoses and plan as above.
[2016-03-22] MEDS: Melatonin 3 MG TABLET PO SCH (22:07)
[2016-03-22] MEDS: Mirtazapine 15 MG TABLET PO SCH (22:07)
[2016-03-23] MEDS: Ipratropium/Albuterol Neb 3 ML IH SCH ×6 (00:37→20:48)
[2016-03-23] MEDS: Insulin LISPRO 300 UNITS/3 ML VIAL SQ SCH ×4 (08:29→21:09)
[2016-03-23] MEDS: Lactobacillus 1 EACH CAP.SPRINK PO SCH (08:59)
[2016-03-23] MEDS: Finasteride 5 MG TABLET PO SCH (08:59)
[2016-03-23] MEDS: predniSONE 5 MG TABLET PO SCH (08:59)
[2016-03-23] MEDS: Magnesium Oxide 400 MG TABLET PO SCH ×2 (08:59→21:08)
[2016-03-23] MEDS: Aspirin 81 MG TAB.CHEW PO SCH (09:00)
[2016-03-23] MEDS: Insulin DETEMIR 100 UNIT/ML X5UNITS SQ SCH ×2 (09:01→21:09)
--- NOTE | 2016-03-23 09:16 | Internal Med Progress Note ---
<Héctor Garza - Last Filed: 03/23/16 09:16> Date of Encounter: 03/23/16 Time of Encounter: 09:16 - Assessment and plan (1) Aortic stenosis Current Visit: Yes Status: Chronic Assessment and plan: -Murmur is not new. Blood culture negative. -Evaluated by cardiology. Patient asymptomatic at rest. Will treat conservatively. Qualifiers: Cardiac valve disease etiology: nonrheumatic Qualified Code(s): I35.0 - Nonrheumatic aortic (valve) stenosis (2) Sepsis Current Visit: Yes Status: Resolved Assessment and plan: -Resolved. Previous concern: Secondary to pneumonia. HCAP. Blood culture negative. Abx completed while in hospital. [facility] -Despite patient having an elevated WBC a couple of days ago. I feel it is unncessary to redraw labs. Patient is clinically stable, feeling better. No cough and lungs are CTAB. Thought the repeat CXR appeared similar to previous CXR. If Patient condition worsen or becomes more SOB, will redraw labs and evaluate. Qualifiers: Sepsis type: sepsis due to unspecified organism Qualified Code(s): A41.9 - Sepsis, unspecified organism (3) Dementia Current Visit: No Status: Chronic Qualifiers: Dementia type: Alzheimer's disease Alzheimer's disease onset: unspecified onset Dementia behavioral disturbance: without behavioral disturbance Qualified Code(s): G30.9 - Alzheimer's disease, unspecified; F02.80 - Dementia in other diseases classified elsewhere without behavioral disturbance (4) Diabetes Current Visit: No Status: Chronic Assessment and plan: -Uncontrolled. -Please continue to check and make appropriate adjustments to insulin medication. Qualifiers: Diabetes mellitus type: type 2 Diabetes mellitus complication status: without complication Diabetes mellitus fci insulin use: without fci use Qualified Code(s): E11.9 - Type 2 diabetes mellitus without complications (5) home weatherizing worker involved in patient's care Current Visit: Yes Status: Acute Assessment and plan: -[facility] -Spoke with social media director personally. She is working hard to try to get patient discharged to proper facility. He is unable to care for himself independently. - Time Spent With Patient less than 15 minutes - Subjective Interval history: Patient states he feels the same today as yesterday. Back to baseline. No questions. Denies SOB, CP, urinary or bowel problems.. No concerns. Patient wanting to be discharged. No changes. Patient is sitting up in chair, resting comfortably and watching TV - Constitutional Vitals: Temp Pulse Resp BP Pulse Ox 97.8 F 89 16 117/60 96 03/23/16 07:00 03/23/16 07:00 03/23/16 07:00 03/23/16 07:00 03/23/16 07:00 General appearance: Present: cooperative, pleasant, no acute distress, answers questions appropriately - Respiratory Respiratory exam: Present: rhonchi - Cardiovascular Cardiovascular exam: Present: RRR, systolic murmur. Absent: diastolic murmur - Neurological Exam Neurological exam: Present: alert, oriented X3 - Psychiatric Psychiatric exam: Present: normal affect, normal mood Internal Medicine: Result - Labs CBC & Chem 7: 03/16/16 03:50 03/16/16 03:50 - ABG Interpretation ABG results: ABG ABG pH 7.40 pH Units (7.32-7.45) 03/01/16 21:18 ABG pCO2 43 mmHg (35-45) 03/01/16 21:18 ABG pO2 55 mmHg (85-104) L 03/01/16 21:18 ABG O2 Saturation 88 % (95-98) L 03/01/16 21:18 PT/INR, D-dimer PT 12.6 Seconds (9.4-12.1) H 03/01/16 19:46 - VTE Documentation of Mechanical Device: Graduated compression elastic hosiery Consult Discharge Plan - Plan Instructions: Heart Failure (DC), Acute Respiratory Distress Syndrome (DC), Urinary Tract Infection in Men (DC), Diabetes Mellitus Type 2 in Adults (DC), Sepsis (DC), Chronic Hypertension (DC), Pneumonia (DC), Dementia, Roving Department End Finder (GEN) [facility]errals: [facility] [Primary Care Provider[facility] - <Endy Tran - Last Filed: 03/23/16 15:44> Date of Encounter: 03/23/16 - Assessment and plan (1) Dementia Current Visit: No Status: Chronic Qualifiers: Dementia type: Alzheimer's disease Alzheimer's disease onset: unspecified onset Dementia behavioral disturbance: without behavioral disturbance Qualified Code(s): G30.9 - Alzheimer's disease, unspecified; F02.80 - Dementia in other diseases classified elsewhere without behavioral disturbance (2) Hypertension Current Visit: No Status: Chronic Qualifiers: Hypertension type: essential hypertension Qualified Code(s): I10 - Essential (primary) hypertension (3) Dysphagia Current Visit: No Status: Chronic Qualifiers: Dysphagia type: pharyngeal phase Qualified Code(s): R13.13 - Dysphagia, pharyngeal phase (4) Aortic stenosis Current Visit: Yes Status: Chronic Qualifiers: Cardiac valve disease etiology: nonrheumatic Qualified Code(s): I35.0 - Nonrheumatic aortic (valve) stenosis (5) Acute respiratory failure with hypoxia Current Visit: Yes Status: Resolved - Constitutional Vitals: Temp Pulse Resp BP Pulse Ox 97.8 F 89 16 117/60 96 03/23/16 07:00 03/23/16 07:00 03/23/16 07:00 03/23/16 07:00 03/23/16 07:00 Internal Medicine: Result - Labs CBC & Chem 7: 03/16/16 03:50 03/16/16 03:50 - ABG Interpretation ABG results: ABG ABG pH 7.40 pH Units (7.32-7.45) 03/01/16 21:18 ABG pCO2 43 mmHg (35-45) 03/01/16 21:18 ABG pO2 55 mmHg (85-104) L 03/01/16 21:18 ABG O2 Saturation 88 % (95-98) L 03/01/16 21:18 PT/INR, D-dimer PT 12.6 Seconds (9.4-12.1) H 03/01/16 19:46 - Attending Attestation I examined this patient and my medical decision-making was reviewed with the Resident Physician on 03/23/16. I agree with the documented findings, disposition and treatment plan as described except to the extent set forth below. Mr. Edge is currently admitted for sepsis due to pneumonia. He has a chronic indwelling catheter. He remains moderate risk at this time due to overall medical comorbities. Mr. Edge has no complaints. He wants to speak to his . Exam Alert. Comfortable Heart reg Lungs clear I/P 1. Aortic stenosis 2. Sepsis resolved 3. 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 Awaiting placement.
[2016-03-23] MEDS: Melatonin 3 MG TABLET PO SCH (21:09)
[2016-03-23] MEDS: Mirtazapine 15 MG TABLET PO SCH (21:10)
[2016-03-24] MEDS: Ipratropium/Albuterol Neb 3 ML IH SCH ×7 (00:13→23:41)
[2016-03-24] MEDS: Finasteride 5 MG TABLET PO SCH (09:16)
[2016-03-24] MEDS: Aspirin 81 MG TAB.CHEW PO SCH (09:16)
[2016-03-24] MEDS: Insulin DETEMIR 100 UNIT/ML X5UNITS SQ SCH ×2 (09:17→21:39)
[2016-03-24] MEDS: Magnesium Oxide 400 MG TABLET PO SCH ×2 (09:17→21:39)
[2016-03-24] MEDS: predniSONE 5 MG TABLET PO SCH (09:17)
[2016-03-24] MEDS: Insulin LISPRO 300 UNITS/3 ML VIAL SQ SCH ×4 (09:17→21:42)
[2016-03-24] MEDS: Lactobacillus 1 EACH CAP.SPRINK PO SCH (09:17)
--- NOTE | 2016-03-24 10:00 | Internal Med Progress Note ---
<Héctor Garza - Last Filed: 03/24/16 10:00> Date of Encounter: 03/24/16 - Assessment and plan (1) Aortic stenosis Current Visit: Yes Status: Chronic Qualifiers: Cardiac valve disease etiology: nonrheumatic Qualified Code(s): I35.0 - Nonrheumatic aortic (valve) stenosis (2) Sepsis Current Visit: Yes Status: Resolved Qualifiers: Sepsis type: sepsis due to unspecified organism Qualified Code(s): A41.9 - Sepsis, unspecified organism (3) Dementia Current Visit: No Status: Chronic Qualifiers: Dementia type: Alzheimer's disease Alzheimer's disease onset: unspecified onset Dementia behavioral disturbance: without behavioral disturbance Qualified Code(s): G30.9 - Alzheimer's disease, unspecified; F02.80 - Dementia in other diseases classified elsewhere without behavioral disturbance (4) Diabetes Current Visit: No Status: Chronic Qualifiers: Diabetes mellitus type: type 2 Diabetes mellitus complication status: without complication Diabetes mellitus senior care insulin use: without long term care social worker use Qualified Code(s): E11.9 - Type 2 diabetes mellitus without complications (5) cafeteria worker involved in patient's care Current Visit: Yes Status: Acute - Subjective Interval history: Patient states he feels the same today as yesterday. Back to baseline. No questions. Denies SOB, CP, urinary or bowel problems.. No concerns. Patient wanting to be discharged. No changes. Patient is sitting up in chair, resting comfortably and watching TV - Constitutional Vitals: Temp Pulse Resp BP Pulse Ox 98 F 78 16 116/48 98 03/24/16 08:11 03/24/16 08:11 03/24/16 08:11 03/24/16 08:11 03/24/16 08:11 General appearance: Present: cooperative, pleasant, no acute distress, answers questions appropriately Internal Medicine: Result - Labs CBC & Chem 7: 03/16/16 03:50 03/16/16 03:50 - ABG Interpretation ABG results: ABG ABG pH 7.40 pH Units (7.32-7.45) 03/01/16 21:18 ABG pCO2 43 mmHg (35-45) 03/01/16 21:18 ABG pO2 55 mmHg (85-104) L 03/01/16 21:18 ABG O2 Saturation 88 % (95-98) L 03/01/16 21:18 PT/INR, D-dimer PT 12.6 Seconds (9.4-12.1) H 03/01/16 19:46 - VTE Documentation of Mechanical Device: Graduated compression elastic hosiery Consult Discharge Plan - Plan Instructions: Heart Failure (DC), Acute Respiratory Distress Syndrome (DC), Urinary Tract Infection in Men (DC), Diabetes Mellitus Type 2 in Adults (DC), Sepsis (DC), Chronic Hypertension (DC), Pneumonia (DC), Dementia, 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) [facility]errals: [facility] [Primary Care Provider] - <Endy Tran - Last Filed: 03/24/16 18:46> Date of Encounter: 03/24/16 Time of Encounter: 08:00 - Assessment and plan (1) Dementia Current Visit: No Status: Chronic Qualifiers: Dementia type: Alzheimer's disease Alzheimer's disease onset: unspecified onset Dementia behavioral disturbance: without behavioral disturbance Qualified Code(s): G30.9 - Alzheimer's disease, unspecified; F02.80 - Dementia in other diseases classified elsewhere without behavioral disturbance (2) Hypertension Current Visit: No Status: Chronic Qualifiers: Hypertension type: essential hypertension Qualified Code(s): I10 - Essential (primary) hypertension (3) Dysphagia Current Visit: No Status: Chronic Qualifiers: Dysphagia type: pharyngeal phase Qualified Code(s): R13.13 - Dysphagia, pharyngeal phase (4) Aortic stenosis Current Visit: Yes Status: Chronic Qualifiers: Cardiac valve disease etiology: nonrheumatic Qualified Code(s): I35.0 - Nonrheumatic aortic (valve) stenosis (5) Acute respiratory failure with hypoxia Current Visit: Yes Status: Resolved - Constitutional Vitals: Temp Pulse Resp BP Pulse Ox 97.8 F 89 18 146/90 94 L 03/24/16 15:40 03/24/16 15:40 03/24/16 16:05 03/24/16 15:40 03/24/16 16:05 Internal Medicine: Result - Labs CBC & Chem 7: 03/16/16 03:50 03/16/16 03:50 - ABG Interpretation ABG results: ABG ABG pH 7.40 pH Units (7.32-7.45) 03/01/16 21:18 ABG pCO2 43 mmHg (35-45) 03/01/16 21:18 ABG pO2 55 mmHg (85-104) L 03/01/16 21:18 ABG O2 Saturation 88 % (95-98) L 03/01/16 21:18 PT/INR, D-dimer PT 12.6 Seconds (9.4-12.1) H 03/01/16 19:46 - Attending Attestation I examined this patient and my medical decision-making was reviewed with the Resident Physician on 03/24/16. I agree with the documented findings, disposition and treatment plan as described except to the extent set forth below. Mr. Edge remains hospitalized due to need for placement in SNF. He remains moderate risk due to indwelling henderson and potential for falls and new infections. Mr. Edge feels OK. No new issues. Wants to go home. No CP or SOB Exam Alert. Comfortable Heart reg with murmur Lungs clear I/P 1. Dementia 2. Aortic stenosis Further diagnoses and plan as above. Awaiting placement.
[2016-03-24] MEDS: Mirtazapine 15 MG TABLET PO SCH (21:38)
[2016-03-24] MEDS: Melatonin 3 MG TABLET PO SCH (21:39)
[2016-03-25] MEDS: Ipratropium/Albuterol Neb 3 ML IH SCH ×3 (04:49→11:34)
[2016-03-25 07:21] VITALS: BP 127/89
[2016-03-25] MEDS: Insulin LISPRO 300 UNITS/3 ML VIAL SQ SCH ×2 (07:54→14:50)
[2016-03-25] MEDS: Aspirin 81 MG TAB.CHEW PO SCH (08:05)
[2016-03-25] MEDS: Insulin DETEMIR 100 UNIT/ML X5UNITS SQ SCH (08:06)
[2016-03-25] MEDS: Finasteride 5 MG TABLET PO SCH (08:06)
[2016-03-25] MEDS: Magnesium Oxide 400 MG TABLET PO SCH (08:06)
[2016-03-25] MEDS: Lactobacillus 1 EACH CAP.SPRINK PO SCH (08:06)
--- NOTE | 2016-03-25 10:27 | Discharge Summary ---
<GregHéctor - Last Filed: 03/25/16 10:24> Date of Encounter: 03/25/16 Time of Encounter: 10:00 - Discharge Diagnosis (1) Aortic stenosis Status: Chronic Qualifiers: Cardiac valve disease etiology: nonrheumatic Qualified Code(s): I35.0 - Nonrheumatic aortic (valve) stenosis (2) Sepsis Status: Resolved Qualifiers: Sepsis type: sepsis due to unspecified organism Qualified Code(s): A41.9 - Sepsis, unspecified organism (3) Dementia Status: Chronic Qualifiers: Dementia type: Alzheimer's disease Alzheimer's disease onset: unspecified onset Dementia behavioral disturbance: without behavioral disturbance Qualified Code(s): G30.9 - Alzheimer's disease, unspecified; F02.80 - Dementia in other diseases classified elsewhere without behavioral disturbance (4) Diabetes Status: Chronic Qualifiers: Diabetes mellitus type: type 2 Diabetes mellitus complication status: without complication 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: without 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 use Qualified Code(s): E11.9 - Type 2 diabetes mellitus without complications (5) connection worker involved in patient's care Status: Acute - Discharge Medications Home Medications: Atenolol [Tenormin] 12.5 mg PO DAILY 02/19/16 [History] Finasteride [Proscar] 5 mg PO DAILY 02/19/16 [History] Furosemide [Lasix] 20 mg PO DAILY 02/19/16 [History] GlipiZIDE [Glucotrol] 5 mg PO BID 02/19/16 [History] Ketorolac OPTH Soln [Acular] 1 drop LEFT EYE TID 02/19/16 [History] Linagliptin [Tradjenta] 5 mg PO DAILY 02/19/16 [History] Magnesium Oxide 420 mg PO BID 02/19/16 [History] Omeprazole 20 mg PO DAILY 02/19/16 [History] PrednisoLONE Acetate 1% Opth [PredFORTE 1%] 1 drop LEFT EYE QID 02/19/16 [ History] Simvastatin [Zocor] 40 mg PO DAILY 02/19/16 [History] Tamsulosin [Flomax] 0.4 mg PO BID 03/02/16 [History] Acetaminophen [Tylenol] 650 mg PO Q6HR PRN #0 tablet 03/25/16 [Rx] Aspirin 81 mg PO DAILY tab.chew 03/25/16 [Rx] Donepezil [Aricept] 5 mg PO HS tablet 03/25/16 [Rx] Furosemide [Lasix] 20 mg PO DAILY PRN #0 tablet 03/25/16 [Rx] GuaiFENesin ER [Mucinex] 1,200 mg PO BID tbbp.12hr 03/25/16 [Rx] Insulin DETEMIR [Levemir] 15 unit SQ BID [id number] 03/25/16 [Rx] Ipratropium/Albuterol Neb [Duoneb] 3 ml IH [id number] inhsol 03/25/16 [Rx] Lactobacillus [Culturelle] 2 each PO DAILY cap.sprink 03/25/16 [Rx] Melatonin 6 mg PO HS tablet 03/25/16 [Rx] Mirtazapine [Remeron] 7.5 mg PO HS tablet 03/25/16 [Rx] Polyethylene Glycol 3350 [MiraLAX] 17 gm PO DAILY PRN #0 powd.pack 03/25/16 [Rx] Allergies/Adverse Reactions: Allergies metformin Adverse Reaction (Verified 02/19/16 20:30) See Comments Penicillins [PCN] Adverse Reaction (Verified 02/19/16 20:30) See Comments Date of admission: 03/01/16 21:45 [facility] physician: [facility] Consults: 03/03/16 13:00 Consult to Physical Therapy [CONS] Routine Comment: Evaluate, develop and implement POC 03/14/16 14:54 Consult to Occupational Therapy [CONS] Routine Comment: Evaluate, develop and implement POC 03/17/16 14:38 Consult to Physician [CONS] Routine Consulting Provider: Samy Burrows Reason for Consult: SEVERE AORTIC STENOSIS Call Completed: Yes 03/01/16 23:38 Consult to Handkerchief Presser [CONS] Routine Reason for SW Consult: home health vs discharge placement. 03/01/16 23:39 Consult to Speech Therapy [CONS] Routine Comment: Evaluate, develop and implement POC Reason for Consult: recent esophageal dilation, with continued concerns for aspiration. Call Completed: No - Patient Status Disposition: Transfer SNF Condition: Fair - Discharge Instructions Instructions: Heart Failure (DC), Acute Respiratory Distress Syndrome (DC), Urinary Tract Infection in Men (DC), Diabetes Mellitus Type 2 in Adults (DC), Sepsis (DC), Chronic Hypertension (DC), Pneumonia (DC), Dementia, Tow Picker (GEN) [facility] With: [facility] [Primary Care Provider[facility] - Hospital course: Mr. Edge is a 80 year old male - Time Spent with Patient Total time spent providing and/or coordinating discharge services: - Constitutional Vitals: Temp Pulse Resp BP Pulse Ox 98.3 F 102 18 127/89 96 03/25/16 07:14 03/25/16 07:14 03/25/16 08:24 03/25/16 07:14 03/25/16 08:24 General appearance: Present: cooperative, pleasant, no acute distress, answers questions appropriately - VTE Documentation of Mechanical Device: Graduated compression elastic hosiery <Endy Tran - Last Filed: 03/25/16 12:16> Date of Encounter: 03/25/16 - Discharge Diagnosis (1) Dementia Priority: Secondary Status: Chronic Qualifiers: Dementia type: Alzheimer's disease Alzheimer's disease onset: unspecified onset Dementia behavioral disturbance: without behavioral disturbance Qualified Code(s): G30.9 - Alzheimer's disease, unspecified; F02.80 - Dementia in other diseases classified elsewhere without behavioral disturbance (2) Hypertension Priority: Secondary Status: Chronic Qualifiers: Hypertension type: essential hypertension Qualified Code(s): I10 - Essential (primary) hypertension (3) Dysphagia Priority: Secondary Status: Chronic Qualifiers: Dysphagia type: pharyngeal phase Qualified Code(s): R13.13 - Dysphagia, pharyngeal phase (4) Aortic stenosis Priority: Secondary Status: Chronic Qualifiers: Cardiac valve disease etiology: nonrheumatic Qualified Code(s): I35.0 - Nonrheumatic aortic (valve) stenosis (5) Acute respiratory failure with hypoxia Priority: Primary Status: Resolved Date of admission: 03/01/16 21:45 [facility] care physician: [facility] Consults: 03/03/16 13:00 Consult to Physical Therapy [CONS] Routine Comment: Evaluate, develop and implement POC 03/14/16 14:54 Consult to Occupational Therapy [CONS] Routine Comment: Evaluate, develop and implement POC 03/17/16 14:38 Consult to Physician [CONS] Routine Consulting Provider: Samy Burrows Reason for Consult: SEVERE AORTIC STENOSIS Call Completed: Yes 03/01/16 23:38 Consult to Handkerchief Presser [CONS] Routine Reason for SW Consult: home health vs discharge placement. 03/01/16 23:39 Consult to Speech Therapy [CONS] Routine Comment: Evaluate, develop and implement POC Reason for Consult: recent esophageal dilation, with continued concerns for aspiration. Call Completed: No Discharging clinician: Endy Tran Anticipated date of discharge: 03/25/16 - Patient Status Functional capacity at discharge: independent ambulation Overall status at discharge: patient is progressing back to baseline - Diet and Activity Activity: as per physical therapy Diet: low fat, low cholesterol (1500ml fluid restriction), low salt diet Hospital course: Mr. Edge is a 80 year old male with a history of dementia presented to the ED with acute respiratory distress. He was found to have pneumonia and admitted for acute hypoxic respiratory failure. Mr. Edge was admitted to [facility]. He was placed on IV abx with slow improvement in his condition. He was evaluated by speech therapy due to concern for aspiration and diet adjusted. He began to become more agitated and he was treated for delirium/dementia. He was evaluated by PT/OT and SNF recommended. Ultimately the plan was to admit him to a SNF in [place]. The SNF was contacted and accepted him but did not have a bed. It became a prolonged time awaiting for a bed. He was noted to have a murmur and echo revealed moderate aortic stenosis. He was evaluated by cardiology and recommendations were medical management at this time. He had no further acute issues develop and was controlled on his current medication. Lisinopril was held due to renal function. On he was alert and comfortable. His vitals were stable and arrangements were made to transfer to SNF. He was medically stable at the time of discharge. - Time Spent with Patient Total time spent providing and/or coordinating discharge services: 42min - Constitutional Vitals: Temp Pulse Resp BP Pulse Ox 98.3 F 102 18 127/89 94 L 03/25/16 07:14 03/25/16 07:14 03/25/16 11:36 03/25/16 07:14 03/25/16 11:36 - Head Head exam: Present: atraumatic - Eye Eye exam: Present: conjuntiva pink - ENT ENT exam: Present: mucous membranes moist - Respiratory Respiratory exam: Present: decreased breath sounds, CTAB - Cardiovascular Cardiovascular exam: Present: RRR, systolic murmur. Absent: tachycardia - GI/Abdominal GI/Abdominal exam: Present: soft. Absent: tenderness - Extremities Exam Extremities exam: Present: warm. Absent: pedal edema - Neurological Exam Neurological exam: Present: alert, no focal deficits - Skin Skin exam: Present: dry, warm. Absent: rash
--- NOTE | 2016-03-25 11:58 | Physician Discharge Referral ---
ExtendedCare Referral Info Provider in Charge: Endy Tran DO Provider in Charge after Transfer: Other (Physician at facility) Institutional Level of Care: Skilled - Diagnosis (1) Dementia Status: Chronic (2) Hypertension Priority: Secondary Status: Chronic (3) Dysphagia Priority: Secondary Status: Chronic (4) Aortic stenosis Priority: Secondary Status: Chronic (5) Acute respiratory failure with hypoxia Priority: Primary Status: Resolved - Transfer Medications Home Medications: Atenolol [Tenormin] 12.5 mg PO DAILY 02/19/16 [History] Finasteride [Proscar] 5 mg PO DAILY 02/19/16 [History] Furosemide [Lasix] 20 mg PO DAILY 02/19/16 [History] GlipiZIDE [Glucotrol] 5 mg PO BID 02/19/16 [History] Ketorolac OPTH Soln [Acular] 1 drop LEFT EYE TID 02/19/16 [History] Linagliptin [Tradjenta] 5 mg PO DAILY 02/19/16 [History] Magnesium Oxide 420 mg PO BID 02/19/16 [History] Omeprazole 20 mg PO DAILY 02/19/16 [History] PrednisoLONE Acetate 1% Opth [PredFORTE 1%] 1 drop LEFT EYE QID 02/19/16 [ History] Simvastatin [Zocor] 40 mg PO DAILY 02/19/16 [History] Tamsulosin [Flomax] 0.4 mg PO BID 03/02/16 [History] Acetaminophen [Tylenol] 650 mg PO Q6HR PRN #0 tablet 03/25/16 [Rx] Aspirin 81 mg PO DAILY tab.chew 03/25/16 [Rx] Donepezil [Aricept] 5 mg PO HS tablet 03/25/16 [Rx] Furosemide [Lasix] 20 mg PO DAILY PRN #0 tablet 03/25/16 [Rx] GuaiFENesin ER [Mucinex] 1,200 mg PO BID tbbp.12hr 03/25/16 [Rx] Insulin DETEMIR [Levemir] 15 unit SQ BID [id number] 03/25/16 [Rx] Ipratropium/Albuterol Neb [Duoneb] 3 ml IH [id number] inhsol 03/25/16 [Rx] Lactobacillus [Culturelle] 2 each PO DAILY cap.sprink 03/25/16 [Rx] Melatonin 6 mg PO HS tablet 03/25/16 [Rx] Mirtazapine [Remeron] 7.5 mg PO HS tablet 03/25/16 [Rx] Polyethylene Glycol 3350 [MiraLAX] 17 gm PO DAILY PRN #0 powd.pack 03/25/16 [Rx] Allergies/Adverse Reactions: Allergies metformin Adverse Reaction (Verified 02/19/16 20:30) See Comments Penicillins [PCN] Adverse Reaction (Verified 02/19/16 20:30) See Comments - Respiratory Orders None (Keep saturation greater than 92%) Smoking Cessation: Smoking cessation has been advised. For more information, call the [place] Tobacco Quit Line at 0-689-WUOX-NOW. - Lab Orders Lab Orders: 2 Step Mantoux Test per State regulation - Ancillary Orders May use pressure relief devices daily prn, May consult with Dentist, Trader, Medical Record Specialist PRN - Advance Directives Code Status: Full Code - History and Physical History/Physical reviewed & approved w/add comments: Pt mentally improved from admission - Mobility Orders Ambulate - Rehabiliation Orders Rehab Potential: Fair Rehab Orders: Evaluation for Physical Therapy, Evaluation for Occupational Therapy - Treatments Skin tear care topically daily PRN per policy, May check for fecal impaction rectally daily PRN, Fleet enema rectally every other day PRN cleansing purposes - Diet Orders Cardiac (1500ml fluid restriction) CERTIFICATION: I certify that the transfer of the above named patient to an Extended Care Facility is necessary for the continuing treatment of the diagnosis listed. The above information is true and accurate reflection of patient's current condition. Confidential - Redisclosure prohibited without a patient's written consent.
== END 2016-03-25 16:13 | DRG 871 ==
LOC: EMEROO 18:59 → 2NNU 21:45 → SUATTDRO 21:45 → 2NENU 22:24
PROVIDERS: ADMIT Hospitalist; ATTEND Internal Medicine

== ENCOUNTER 2017-05-16 00:35 | Observation (INO) ==
[2017-05-16 01:20] LABS: Basophils % 0.4 %; Eosinophils # 0.3 K/mcL (0.0-0.6); Eosinophils % 2.8 %; Hemoglobin 11.4 g/dL (12.9-16.9); Immature Granulocytes % 0.5 % (0-4); Lymphocytes # 2.1 K/mcL (0.6-4.6); Mean Corpuscular HGB Conc 33.5 g/dL (31.6-35.5); Mean Corpuscular Hemoglobin 28.9 pg (28.0-33.3); Mean Corpuscular Volume 86.3 fL (83.0-100.0); Mean Platelet Volume 9.3 fL (9.4-12.4); Monocytes # 0.9 K/mcL (0.0-1.3); Neutrophils # 7.6 K/mcL (1.6-8.9); Platelet Count 292 K/mcL (140-400); Red Blood Count 3.94 M/mcL (4.19-5.50); Red Cell Distribution Width 12.8 % (11.5-14.5); Segmented Neutrophils % 69.3 %
[2017-05-16 01:25] LABS: INR 1.1; Prothrombin Time 12.2 Seconds (9.4-12.1)
[2017-05-16 01:27] LABS: Activated Partial Thrombo Time 27.8 Seconds (26.0-36.0)
[2017-05-16 01:44] LABS: BUN/Creatinine Ratio 15 (6-26); Blood Urea Nitrogen 20 mg/dL (8-23); Calcium 9.2 mg/dL (8.6-10.3); Carbon Dioxide 25 mEq/L (23-29); Chloride 102 mEq/L (98-107); Glucose 298 mg/dL (70-105); Osmolality,Calculated 296 (280-300); Potassium 4.1 mEq/L (3.5-5.1); Sodium 136 mEq/L (136-145); Troponin I < 0.03 ng/mL (< 0.04); eGFR For African Americans > 60 (> 60); eGFR For Non-African Americans 52 (> 60)
--- NOTE | 2017-05-16 02:19 | Emergency Department Note ---
Disposition Clinical Impression: Unable to ambulate, Left-sided chest wall pain Altered mental status Qualifiers: Altered mental status type: unspecified Qualified Code(s): R41.82 - Altered mental status, unspecified Fall Qualifiers: Encounter type: initial encounter Qualified Code(s): W19.XXXA - Unspecified fall, initial encounter Disposition: Admitted As Inpatient Condition: Good Time of Disposition: 05:49 Chest Pain HPI - General Chief Complaint: ED Chest Pain Stated Complaint: cp/sob had a fall today Time Seen by Provider: 05/16/17 02:18 Source: patient Mode of arrival: ambulatory Limitations: no limitations Vital Signs Reviewed: Yes Nursing Notes Reviewed: Yes - History of Present Illness HPI Narrative: Patient is an 81-year-old male with past history of dementia. He is accompanied by granddaughter who states that just prior to arrival, the patient was trying to ambulate by himself although one was home and he fell onto his left side. Was complaining of left-sided rib pain. She also states that he is more confused above his baseline. The patient himself was not able to tell me much about the fall but it sounded mechanical in nature as he was not using his cane as he usually does. Denies any chest discomfort other than the left rib pain, denies any shortness of breath, nausea, vomiting, palpitations, fevers, abdominal pain. He says that he feels generally weak. Granddaughter reports that he does have worsened ambulation status is baseline. Granddaughter says that she is concerned about patient's safety as he is alone at some points throughout the day while they are at work. Severity scale (1-10): 6 - Related Data Home Medications Medication Instructions Recorded Confirmed Atenolol [Tenormin] 12.5 mg PO DAILY 02/19/16 03/02/16 Finasteride [Proscar] 5 mg PO DAILY 02/19/16 03/02/16 Furosemide [Lasix] 20 mg PO DAILY 02/19/16 03/02/16 Ketorolac OPTH Soln [Acular] 1 drop LEFT EYE TID 02/19/16 03/02/16 Linagliptin [Tradjenta] 5 mg PO DAILY 02/19/16 03/02/16 Magnesium Oxide 420 mg PO BID 02/19/16 03/02/16 Omeprazole 20 mg PO DAILY 02/19/16 03/02/16 PrednisoLONE Acetate 1% Opth 1 drop LEFT EYE QID 02/19/16 03/02/16 [PredFORTE 1%] Simvastatin [Zocor] 40 mg PO DAILY 02/19/16 03/02/16 glipiZIDE [Glucotrol] 5 mg PO BID 02/19/16 03/02/16 Tamsulosin [Flomax] 0.4 mg PO BID 03/02/16 03/02/16 Previous Rx's Medication Instructions Recorded Acetaminophen [Tylenol] 650 mg PO Q6HR PRN #0 tablet 03/25/16 Aspirin 81 mg PO DAILY tab.chew 03/25/16 Donepezil [Aricept] 5 mg PO HS tablet 03/25/16 Furosemide [Lasix] 20 mg PO DAILY PRN #0 tablet 03/25/16 GuaiFENesin ER [Mucinex] 1,200 mg PO BID tbbp.12hr 03/25/16 Insulin DETEMIR [Levemir] 15 unit SQ BID [id number] 03/25/16 Ipratropium/Albuterol Neb [Duoneb] 3 ml IH [id number] inhsol 03/25/16 Lactobacillus [Culturelle] 2 each PO DAILY cap.sprink 03/25/16 Melatonin 6 mg PO HS tablet 03/25/16 Mirtazapine [Remeron] 7.5 mg PO HS tablet 03/25/16 Polyethylene Glycol 3350 [MiraLAX] 17 gm PO DAILY PRN #0 powd.pack 03/25/16 Allergies Allergy/AdvReac Type Severity Reaction Status Date / Time metformin AdvReac See Verified 05/16/17 00:55 Comments Penicillins [PCN] AdvReac See Verified 05/16/17 00:55 Comments All systems ED: reviewed and negative except as stated. Constitutional: Denies: fever Cardiovascular: Reports: chest pain. Denies: palpitations Respiratory: Denies: cough, dyspnea, wheezes Gastrointestinal: Denies: abdominal pain, nausea, vomiting, diarrhea Genitourinary: Denies: urgency, dysuria Musculoskeletal: Denies: back pain Neurological: Reports: confusion. Denies: headache, weakness, numbness, paresthesias Chest Pain PMH - Past Medical History Medical history: Reports: CHF, coronary artery disease, dementia, diabetes, GERD , hyperlipidemia, hypertension, peripheral artery disease, renal disease Surgical history: Reports: no surgical history Psychiatric history: Reports: PTSD - Social History Smoking Status: Former smoker Alcohol use: Reports: none Drug use: Reports: none Physical Exam - General Limitations: no limitations General appearance: alert - Head Head exam: atraumatic, normocephalic, normal inspection - Eye Eye exam: Present: normal appearance, PERRL, EOMI - ENT ENT exam: normal exam, normal oropharynx, mucous membranes moist - Neck Neck exam: Present: normal inspection, full ROM, trachea midline - Chest Chest inspection: Present: normal inspection, symmetric chest wall rise, tenderness (mild tenderness to left sided ribs 2-5 but no palpable bony abnormalities) - Respiratory Respiratory exam: Present: normal lung sounds bilaterally - Cardiovascular Cardiovascular exam: Present: normal rhythm, tachycardia, normal heart sounds - Abdominal Exam Abdominal exam: Present: soft, Non-Tender. Absent: tenderness, distention, guarding, rebound, rigidity - Extremities Exam Extremities exam: Present: normal inspection, full ROM. Absent: tenderness, pedal edema - Neurological Exam Neurological exam: Present: alert, other (Oriented to person and place but not time. No focal neurologic deficit. Patient is pleasantly confused, is not able to recall events of the fall.) - Psychiatric Psychiatric exam: Present: normal affect, normal mood - Skin Skin exam: Present: warm, dry, intact, normal color Course Course Narrative: Patient was mildly tachycardic on presentation. Otherwise, rest of the vitals were within normal limits. Physical exam shows a pleasantly confused patient and in no acute distress.Oriented to person and place but not time. No focal neurologic deficit. Patient is pleasantly confused, is not able to recall events of the fall. Chest exam shows some mild tenderness of ribs 2 through 5 on the left. No palpable bony abnormality. EKG is obtained and showed no acute ST changes. Shoulder and ribs/chest were negative for any acute abnormality. Head CT was obtained and negative for any acute abnormality. Discussed results with the patient's granddaughter and she was not comfortable with patient going home due to increase in his baseline altered mental status and being unable to ambulate. She will be admitted for further This time. Shoulder X-Ray 05/16/17 00:56 IMPRESSION: No radiographic evidence of fracture or dislocation identified. D/ / Partha Velásquez MD / Partha Velásquez MD Interpreting Provider: Partha Velásquez MD Ribs w/Chest X-Ray 05/16/17 01:02 IMPRESSION: No pneumothorax or definite acute rib fracture. D/ / Blu Prieto MD / Blu Prieto MD Interpreting Provider: Blu Prieto MD Head CT 05/16/17 03:33 IMPRESSION: No acute intracranial abnormality. Chronic ischemic and senescent changes. D/ / Mohan Flores MD / Mohan Flores MD Interpreting Provider: Mohan Flores MD Vital Signs Temperature 98.3 F 05/16/17 00:49 Pulse Rate 106 05/16/17 00:49 Respiratory Rate 20 05/16/17 00:49 Blood Pressure 124/62 05/16/17 00:49 O2 Sat by Pulse Oximetry 100 05/16/17 00:49 Temperature 98.3 F 05/16/17 00:49 Pulse Rate 86 05/16/17 05:00 Respiratory Rate 18 05/16/17 05:00 Blood Pressure 160/73 05/16/17 05:00 O2 Sat by Pulse Oximetry 95 05/16/17 05:00 Oxygen Delivery Oxygen Delivery Nasal Cannula Chest Pain - [facility] Narrative Medical decision making narrative: Patient was mildly tachycardic on presentation. Otherwise, rest of the vitals were within normal limits. Physical exam shows a pleasantly confused patient and in no acute distress.Oriented to person and place but not time. No focal neurologic deficit. Patient is pleasantly confused, is not able to recall events of the fall. Chest exam shows some mild tenderness of ribs 2 through 5 on the left. No palpable bony abnormality. EKG is obtained and showed no acute ST changes. Shoulder and ribs/chest were negative for any acute abnormality. Head CT was obtained and negative for any acute abnormality. Discussed results with the patient's granddaughter and she was not comfortable with patient going home due to increase in his baseline altered mental status and being unable to ambulate. She will be admitted for further This time. - Medical Records Medical records reviewed: Yes I reviewed the patient's medical records. - Lab Data Lab results reviewed: Yes I reviewed the patient's lab results. Result diagrams: 05/16/17 01:04 05/16/17 01:05 Lab Results 05/16/17 05/16/17 05/16/17 Range/Units 01:04 01:04 01:05 WBC 11.0 (4.3-11.1) K/mcL RBC 3.94 L (4.19-5.50) M/mcL Hgb 11.4 L (12.9-16.9) g/dL Hct 34.0 L (37.5-50.1) % MCV 86.3 (83.0-100.0) fL MCH 28.9 (28.0-33.3) pg MCHC 33.5 (31.6-35.5) g/dL RDW 12.8 (11.5-14.5) % Plt Count 292 (140-400) K/mcL MPV 9.3 L (9.4-12.4) fL Immature Gran % 0.5 (0-4) % Seg Neutrophils % 69.3 % Lymphocytes % 19.0 % Monocytes % 8.0 % Eosinophils % 2.8 % Basophils % 0.4 % Neutrophils # 7.6 (1.6-8.9) K/mcL Lymphocytes # 2.1 (0.6-4.6) K/mcL Monocytes # 0.9 (0.0-1.3) K/mcL Eosinophils # 0.3 (0.0-0.6) K/mcL Basophils # 0.0 (0.0-0.2) K/mcL PT 12.2 H (9.4-12.1) Seconds INR 1.1 APTT 27.8 (26.0-36.0) Seconds Sodium 136 (136-145) mEq/L Potassium 4.1 (3.5-5.1) mEq/L Chloride 102 (98-107) mEq/L Carbon Dioxide 25 (23-29) mEq/L BUN 20 (8-23) mg/dL Creatinine 1.32 H (0.70-1.30) mg/dL Est GFR ( Amer) > 60 (> 60) Est GFR (Non-Af Amer) 52 L (> 60) BUN/Creatinine Ratio 15 (6-26) Glucose 298 H (70-105) mg/dL Calculated Osmolality 296 (280-300) Calcium 9.2 (8.6-10.3) mg/dL Troponin I < 0.03 (< 0.04) ng/mL Urine Color (Yellow) Urine Clarity (Clear) Urine pH (5.0-8.0) pH Units Ur Specific [place] (1.010-1.025) Urine Protein (Neg-Trace) mg/dL Urine Glucose (UA) (Normal) mg/dL Urine Ketones (Negative) mg/dL Urine Blood (Negative) Urine Nitrite (Negative) Urine Bilirubin (Negative) Urine Urobilinogen (Normal) mg/dL Ur Leukocyte Esterase (Negative) Ur Culture Indicated? (NO) 05/16/17 Range/Units 04:04 WBC (4.3-11.1) K/mcL RBC (4.19-5.50) M/mcL Hgb (12.9-16.9) g/dL Hct (37.5-50.1) % MCV (83.0-100.0) fL MCH (28.0-33.3) pg MCHC (31.6-35.5) g/dL RDW (11.5-14.5) % Plt Count (140-400) K/mcL MPV (9.4-12.4) fL Immature Gran % (0-4) % Seg Neutrophils % % Lymphocytes % % Monocytes % % Eosinophils % % Basophils % % Neutrophils # (1.6-8.9) K/mcL Lymphocytes # (0.6-4.6) K/mcL Monocytes # (0.0-1.3) K/mcL Eosinophils # (0.0-0.6) K/mcL Basophils # (0.0-0.2) K/mcL PT (9.4-12.1) Seconds INR APTT (26.0-36.0) Seconds Sodium (136-145) mEq/L Potassium (3.5-5.1) mEq/L Chloride (98-107) mEq/L Carbon Dioxide (23-29) mEq/L BUN (8-23) mg/dL Creatinine (0.70-1.30) mg/dL Est GFR ( Amer) (> 60) Est GFR (Non-Af Amer) (> 60) BUN/Creatinine Ratio (6-26) Glucose (70-105) mg/dL Calculated Osmolality (280-300) Calcium (8.6-10.3) mg/dL Troponin I (< 0.04) ng/mL Urine Color Yellow (Yellow) Urine Clarity Clear (Clear) Urine pH 6.0 (5.0-8.0) pH Units Ur Specific Skip[place] 1.008 L (1.010-1.025) Urine Protein Negative (Neg-Trace) mg/dL Urine Glucose (UA) 250 H (Normal) mg/dL Urine Ketones Negative (Negative) mg/dL Urine Blood Negative (Negative) Urine Nitrite Negative (Negative) Urine Bilirubin Negative (Negative) Urine Urobilinogen Normal (Normal) mg/dL Ur Leukocyte Esterase Negative (Negative) Ur Culture Indicated? NO (NO) - Radiology Data Radiology results reviewed: Yes I reviewed the patient's radiology results. Shoulder X-Ray 05/16/17 00:56 IMPRESSION: No radiographic evidence of fracture or dislocation identified. D/ / Partha Velásquez MD / Partha Velásquez MD Interpreting Provider: Partha Velásquez MD Ribs w/Chest X-Ray 05/16/17 01:02 IMPRESSION: No pneumothorax or definite acute rib fracture. D/ / Blu Prieto MD / Blu Prieto MD Interpreting Provider: Blu Prieto MD Head CT 05/16/17 03:33 IMPRESSION: No acute intracranial abnormality. Chronic ischemic and senescent changes. D/ / Mohan Flores MD / Mohan Flores MD Interpreting Provider: Mohan Flores MD - EKG Data EKG attestation: Yes I reviewed and interpreted this EKG. EKG results narrative: 05/16/2017 at 00:43. A. fib. Rate 92. QRS 89. QTc 417. Left axis deviation. No acute ST elevation or depression. S.B.A.Tawny. - S.Rashawn.Scarlet Situation: Demographics, MOA Background: Presenting Complaint, Relevant PMH, Meds, & Allergies Assessment: Vital Signs, Course and respsone to treatment, Exam Concerns, Patient/Family Expectation, Pertinant Lab Results, Outstanding Labs Recommendation: Barrier(s) to disposition, Recommendation based on pending studies, treatments, or consults [place] Report Given to: Dr. Epi Roberts Repor Time: 05:50 Attestation Statement - Attestation Attestation: I, Levon Nye MD, personally evaluated this patient and discussed their management with the resident physician. I reviewed the resident's note and agree with the documented findings, medical decision making, and plan of care. 81-year-old male presents to the emergency department with family complaining that he had a fall this evening onto his left side injuring his left ribs. They also report that he has been more confused than his usual status and has had difficulty ambulating more than usual. Patient complains of pain in his left ribs. He complains of some vague chest pain. No shortness of breath. He is pleasantly confused but is alert and appropriate. On examination patient is a well-developed well-nourished elderly male in no acute distress. He is alert. There is no cyanosis or diaphoresis. There is tenderness to palpation over the left lateral chest wall with no bony crepitus or subcutaneous emphysema. No redness or bruising or swelling or deformity palpable. Breath sounds are clear and equal bilaterally. Heart regular rate and rhythm. There is a grade 2/6 systolic murmur. Abdomen is soft and nontender with normal bowel sounds. Labs reviewed and unremarkable. Left rib x-rays with chest was negative. Shoulder x-ray negative. Head CT negative. The hospitalist, Dr. Chowdary, was consulted and accepted admission of the patient.
[2017-05-16 04:18] LABS: Bilirubin,Urine Negative (Negative); Blood,Urine Negative (Negative); Clarity,Urine Clear (Clear); Color,Urine Yellow (Yellow); Glucose,Urine (UA) 250 mg/dL (Normal); Ketones,Urine Negative (Negative); Leukocyte Esterase,Urine Negative (Negative); Nitrite,Urine Negative (Negative); Protein,Urine Negative (Neg-Trace); Specific Gravity,Urine 1.008 (1.010-1.025); Urobilinogen,Urine Normal (Normal)
--- NOTE | 2017-05-16 08:13 | Internal Med History&Physical ---
Date of Encounter: 05/16/17 Time of Encounter: 08:06 Assessment and Plan (1) Acute confusional state Current visit: Yes Status: Acute Patient had confusion but alert. He was is drowsy or lethargic. He has no focal neurological deficits, no signs of infection as mentioned above, non- hypoxic, no reported LOC, not post-ictal, negative CT head, labs unremarkable. No recent change in medications per chart. He has history of significant dementia. This could be worsening dementia, but will obtain further workup. (2) Fall Current visit: Yes Status: Acute This may be due to physical deconditioning likely as patient in 03/2016 was admitted for pneumonia and discharged to SNF. However, since patient was reported to be confused, we will do further workup. Does not seem likely infectious at this point as he denies any infection-related complaints, a two- view x-ray was negative for pneumonia, UA was negative as well. He is afebrile with tachycardia that has since resolved, and without leukocytosis. However, there was concern for aspiration pneumonia in this past admission. Will have PT /OT and SW to evaluate patient as well. Qualifiers: Encounter type: initial encounter Qualified Code(s): W19.XXXA - Unspecified fall, initial encounter (3) Left-sided chest wall pain Current visit: Yes Status: Acute From contusion of the fall, described as constant and is reproducible. Not likely cardiopulmonary process given negative chest x-ray, negative troponin, and EKG without acute changes. Will treat symptomatically with Tylenol prn. If does not help pain, may use other treatment. (4) Unable to ambulate Current visit: Yes Status: Acute PT/OT evaluation (5) Diabetes mellitus Current visit: No Status: Acute Currently hyperglycemic. Hold home medications. Based on weight will do 15 units of Levemir HS, Humalog 5 units with meals and low dose sliding scale. Qualifiers: Diabetes mellitus type: type 2 Diabetes mellitus [employer] insulin use: without [employer] use Diabetes mellitus complication status: with diabetic arthropathy Qualified Code(s): E11.610 - Type 2 diabetes mellitus with diabetic neuropathic arthropathy (6) Physical deconditioning Current visit: No Status: Acute (7) Aortic stenosis Current visit: No Status: Chronic Qualifiers: Cardiac valve disease etiology: nonrheumatic Qualified Code(s): I35.0 - Nonrheumatic aortic (valve) stenosis (8) CAD (coronary artery disease) Current visit: No Status: Chronic Aspirin, Zocor Qualifiers: Coronary Disease-Associated Artery/Lesion type: [place] artery [place] vs. transplanted heart: [place] heart Associated angina: without angina Qualified Code(s): I25.10 - Atherosclerotic heart disease of [place] coronary artery without angina pectoris (9) Dementia Current visit: No Status: Chronic Qualifiers: Dementia type: Alzheimer's disease Alzheimer's disease onset: unspecified onset Dementia behavioral disturbance: without behavioral disturbance Qualified Code(s): G30.9 - Alzheimer's disease, unspecified; F02.80 - Dementia in other diseases classified elsewhere without behavioral disturbance (10) GERD (gastroesophageal reflux disease) Current visit: No Status: Chronic Qualifiers: Esophagitis presence: esophagitis presence not specified Qualified Code(s) : K21.9 - Gastro-esophageal reflux disease without esophagitis (11) Hyperlipidemia Current visit: No Status: Chronic Qualifiers: Hyperlipidemia type: unspecified Qualified Code(s): E78.5 - Hyperlipidemia , unspecified (12) Hypertension Current visit: No Status: Chronic Resume home medications Qualifiers: Hypertension type: essential hypertension Qualified Code(s): I10 - Essential (primary) hypertension (13) Systolic heart failure Current visit: Yes Status: Acute Echocardiogram done on showed borderline low LVEF 50% - Continue Atenolol Will reconsile medications to see if patient is on ALANA inhibitor or ARB. Resume home Lasix Qualifiers: Heart failure chronicity: chronic Qualified Code(s): I50.22 - Chronic systolic (congestive) heart failure (14) DVT prophylaxis Current visit: Yes Status: Acute SCD Internal Medicine - H&P: HPI History of present illness: Mr. Edge is an 81-year-old male with history of dementia, CHF, CAD, DM, HTN. He presented due to fall. During my assessment, the patient is alone at bedside and patient appears pleasantly demented aware of self and location only. Majority of history taken by ED reports. Patient was brought in by granddaughter who states prior to arrival he was trying to ambulate himself and fell on left side. Now having rib pain which he does note to me personally. He was reported to be more confused than his baseline. He denies any substernal chest pain, N/V, palpitations, numbness/tingling, fevers, chills. Patient feels weakness. He had EKG done that showed no acute ST/T wave changes. X-rays of ribs, shoulders were negative and a CT of head showed no acute process. Granddaughter was not comfortable with patient going home due to confusion and weakness. Past Med Surg Social Fam HX - Past Medical History Medical history: CHF, coronary artery disease, dementia, diabetes, GERD, hyperlipidemia, hypertension, peripheral artery disease, renal disease Psychiatric history: PTSD - Past Surgical History Surgical History: no surgical history - Social History Smoking Status: Former smoker Smokeless Tobacco Status: No Alcohol use: none Drug use: none Internal Medicine - H&P: Meds Atenolol [Tenormin] 12.5 mg PO DAILY 02/19/16 [History] Finasteride [Proscar] 5 mg PO DAILY 02/19/16 [History] Furosemide [Lasix] 20 mg PO DAILY 02/19/16 [History] Ketorolac OPTH Soln [Acular] 1 drop LEFT EYE TID 02/19/16 [History] Linagliptin [Tradjenta] 5 mg PO DAILY 02/19/16 [History] Magnesium Oxide 420 mg PO BID 02/19/16 [History] Omeprazole 20 mg PO DAILY 02/19/16 [History] PrednisoLONE Acetate 1% Opth [PredFORTE 1%] 1 drop LEFT EYE QID 02/19/16 [ History] Simvastatin [Zocor] 40 mg PO DAILY 02/19/16 [History] glipiZIDE [Glucotrol] 5 mg PO BID 02/19/16 [History] Tamsulosin [Flomax] 0.4 mg PO BID 03/02/16 [History] Acetaminophen [Tylenol] 650 mg PO Q6HR PRN #0 tablet 03/25/16 [Rx] Aspirin 81 mg PO DAILY tab.chew 03/25/16 [Rx] Donepezil [Aricept] 5 mg PO HS tablet 03/25/16 [Rx] Furosemide [Lasix] 20 mg PO DAILY PRN #0 tablet 03/25/16 [Rx] GuaiFENesin ER [Mucinex] 1,200 mg PO BID tbbp.12hr 03/25/16 [Rx] Insulin DETEMIR [Levemir] 15 unit SQ BID [id number] 03/25/16 [Rx] Ipratropium/Albuterol Neb [Duoneb] 3 ml IH [id number] inhsol 03/25/16 [Rx] Lactobacillus [Culturelle] 2 each PO DAILY cap.sprink 03/25/16 [Rx] Melatonin 6 mg PO HS tablet 03/25/16 [Rx] Mirtazapine [Remeron] 7.5 mg PO HS tablet 03/25/16 [Rx] Polyethylene Glycol 3350 [MiraLAX] 17 gm PO DAILY PRN #0 powd.pack 03/25/16 [Rx] 3 Allergy/AdvReac Type Severity Reaction Status Date / Time metformin AdvReac See Verified 05/16/17 00:55 Comments Penicillins [PCN] AdvReac See Verified 05/16/17 00:55 Comments All Systems PM: A 10-system review of systems was performed and is negative for pertinent findings except as documented above in the HPI. - Constitutional Constitutional: no chills, no fever(s), no night sweats - EENT Eyes: no change in vision, no discharge, no pain, no photophobia Ears: no ear discharge, no ear pain, no tinnitus Nose, mouth and throat: no dysphagia, no nasal discharge, no neck pain, no sore throat - Cardiovascular Cardiovascular ROS IM: no chest pain (denies substernal chest pain, admits to left sided rib pain.), no diaphoresis, no dyspnea, no lightheadedness, no palpitations, no syncope - Respiratory Respiratory: no cough, no dyspnea, no wheezing, no excessive phlegm production - Gastrointestinal Gastrointestinal: no abdominal pain, no diarrhea, no hematemesis, no hematochezia, no melena, no nausea, no vomiting - Musculoskeletal Musculoskeletal ROS IM: no numbness, no tingling - Integumentary Integumentary IM: no rash, no unusual bruising - Neurological Neurological ROS: no confusion, no convulsions, no focal weakness, no numbness, no tingling, no tremor(s) - Hematologic/Lymphatic Hematologic/Lymphatic: no easy bruising - Constitutional Vitals: Temp Pulse Resp BP Pulse Ox 97.8 F 82 15 147/89 97 05/16/17 06:36 05/16/17 06:36 05/16/17 06:36 05/16/17 06:36 05/16/17 06:36 Exam: - General Limitations: no limitations General appearance: alert - Head Head exam: atraumatic, normocephalic, normal inspection - Eye Eye exam: Present: normal appearance, PERRL, EOMI - ENT ENT exam: normal exam, normal oropharynx, mucous membranes moist - Neck Neck exam: Present: normal inspection, full ROM, trachea midline - Chest Chest inspection: Present: normal inspection, symmetric chest wall rise, tenderness (mild tenderness to left sided ribs, no gross abnormalities) - Respiratory Respiratory exam: Present: normal lung sounds bilaterally - Cardiovascular Cardiovascular exam: Present: normal rhythm, tachycardia, normal heart sounds - Abdominal Exam Abdominal exam: Present: soft, Non-Tender. Absent: tenderness, distention, guarding, rebound, rigidity - Extremities Exam Extremities exam: Present: normal inspection, full ROM. Absent: tenderness, pedal edema - Neurological Exam Neurological exam: Present: alert, other (Oriented to person and place only. No focal neurological deficit.) - Psychiatric Psychiatric exam: Present: normal affect, normal mood - Skin Skin exam: Present: warm, dry, intact, normal color Internal Med - H&P Results - Labs CBC & Chem 7: 05/16/17 01:04 05/16/17 01:05
[2017-05-16] MEDS ORDERED: Naloxone 0.4 MG/ML INJ IVP PRN (08:44)
[2017-05-16] MEDS ORDERED: Insulin DETEMIR 100 UNIT/ML X5UNITS SQ ONE (08:56)
[2017-05-16] MEDS: Insulin LISPRO 300 UNITS/3 ML VIAL SQ SCH ×5 (13:18→21:03)
[2017-05-16] MEDS: *HR* Heparin 5,000 UNIT/ML VIAL SQ SCH (17:13)
[2017-05-16] MEDS: Insulin DETEMIR 100 UNIT/ML X5UNITS SQ SCH (21:03)
[2017-05-16] MEDS: Melatonin 3 MG TABLET PO PRN (21:03)
[2017-05-16] MEDS: Acetaminophen 325 MG TABLET PO PRN (23:25)
[2017-05-17 05:10] LABS: Hematocrit 30.5 % (37.5-50.1); Hemoglobin 10.4 g/dL (12.9-16.9); Immature Granulocytes % 0.6 % (0-4); Lymphocytes % 18.6 %; Mean Corpuscular HGB Conc 34.1 g/dL (31.6-35.5); Mean Corpuscular Hemoglobin 28.8 pg (28.0-33.3); Mean Corpuscular Volume 84.5 fL (83.0-100.0); Mean Platelet Volume 9.6 fL (9.4-12.4); Monocytes % 8.5 %; Platelet Count 292 K/mcL (140-400); Red Blood Count 3.61 M/mcL (4.19-5.50); Segmented Neutrophils % 68.2 %
[2017-05-17 05:11] LABS: Basophils # 0.1 K/mcL (0.0-0.2); Basophils % 0.5 %; Eosinophils # 0.5 K/mcL (0.0-0.6); Eosinophils % 3.6 %; Lymphocytes # 2.3 K/mcL (0.6-4.6); Monocytes # 1.1 K/mcL (0.0-1.3); Neutrophils # 8.6 K/mcL (1.6-8.9)
[2017-05-17] MEDS: Acetaminophen 325 MG TABLET PO PRN ×2 (05:55→20:28)
[2017-05-17] MEDS: *HR* Heparin 5,000 UNIT/ML VIAL SQ SCH ×2 (05:55→17:14)
[2017-05-17] MEDS: Insulin LISPRO 300 UNITS/3 ML VIAL SQ SCH ×7 (09:02→20:24)
[2017-05-17] MEDS ORDERED: 0.9 % Sodium Chloride 1,000 ML IVC SCH (18:45)
[2017-05-17] MEDS ORDERED: *HR* OxyCODONE Immed Rel 5 MG TABLET PO PRN (18:54)
--- NOTE | 2017-05-17 18:59 | Internal Med Progress Note ---
Date of Encounter: 05/17/17 Time of Encounter: 18:56 - Assessment and plan (1) Aspiration pneumonia Current Visit: Yes Status: Suspected Assessment and plan: CXR today concerning for RLL infiltrate. Concern for possible aspiration pneumonia. Will start IV rocephin and IV flagyl. Continue supplemental O2 PRN. Start duonebs, claritin, mucinex, and PRN robitussin DM for cough. Elevate HOB when sleeping. Will consult ST to evaluate swallowing; NPO until then. Start gentle hydration with IVF as per below. Qualifiers: Aspiration pneumonia type: unspecified Laterality: right Lung location: lower lobe of lung Qualified Code(s): J69.0 - Pneumonitis due to inhalation of food and vomit (2) Acute confusional state Current Visit: Yes Status: Resolved Assessment and plan: Patient now alert and oriented x 3. Conversing appropriately despite dementia. Will continue to monitor. Use fall precautions. (3) DVT prophylaxis Current Visit: Yes Status: Acute Assessment and plan: Continue SC heparin. (4) Fall Current Visit: Yes Status: Acute Assessment and plan: Fall with injury to chest wall. Will optimize pain control as per below. Fall precautions as per above. PT/OT consulted as per below. SW consulted for possible placement. Qualifiers: Encounter type: initial encounter Qualified Code(s): W19.XXXA - Unspecified fall, initial encounter (5) Left-sided chest wall pain Current Visit: Yes Status: Acute Assessment and plan: Still has significant pain. Continue Tylenol; will start oxycodone 2.5 mg Q8H PRN for severe pain. (6) Systolic heart failure Current Visit: Yes Status: Chronic Assessment and plan: Echocardiogram done on 03/09/16 showed borderline low LVEF 50%. Continue home medications. Qualifiers: Heart failure chronicity: chronic Qualified Code(s): I50.22 - Chronic systolic (congestive) heart failure (7) Unable to ambulate Current Visit: Yes Status: Acute Assessment and plan: PT/OT consulted. Fall precautions. (8) Acute kidney injury Current Visit: Yes Status: Acute Assessment and plan: Worsening. Cr = 1.50. Concern for rhabdomyolysis given fall. Obtain CK. Start gentle hydration with IV NS at 50 ml/hr. Monitor for fluid overload. (9) Diabetes mellitus Current Visit: Yes Status: Chronic Assessment and plan: Well-controlled. Continue accuchecks and SSI QID AC/HS. Continue home medications. Qualifiers: Diabetes mellitus type: type 2 Diabetes mellitus intermodal dispatcher insulin use: without intermodal dispatcher use Diabetes mellitus complication status: with diabetic arthropathy Qualified Code(s): E11.610 - Type 2 diabetes mellitus with diabetic neuropathic arthropathy (10) Physical deconditioning Current Visit: Yes Status: Acute Assessment and plan: PT/OT consulted. SW consulted for possible acute rehab placement. (11) Aortic stenosis Current Visit: Yes Status: Chronic Qualifiers: Cardiac valve disease etiology: nonrheumatic Qualified Code(s): I35.0 - Nonrheumatic aortic (valve) stenosis (12) CAD (coronary artery disease) Current Visit: Yes Status: Chronic Assessment and plan: Continue home medications. Qualifiers: Coronary Disease-Associated Artery/Lesion type: [place] artery [place] vs. transplanted heart: [place] heart Associated angina: without angina Qualified Code(s): I25.10 - Atherosclerotic heart disease of [place] coronary artery without angina pectoris (13) Dementia Current Visit: Yes Status: Chronic Assessment and plan: Continue home medications. Qualifiers: Dementia type: Alzheimer's disease Alzheimer's disease onset: unspecified onset Dementia behavioral disturbance: without behavioral disturbance Qualified Code(s): G30.9 - Alzheimer's disease, unspecified; F02.80 - Dementia in other diseases classified elsewhere without behavioral disturbance (14) GERD (gastroesophageal reflux disease) Current Visit: Yes Status: Chronic Assessment and plan: Continue home medications. Qualifiers: Esophagitis presence: esophagitis presence not specified Qualified Code(s) : K21.9 - Gastro-esophageal reflux disease without esophagitis (15) Hyperlipidemia Current Visit: Yes Status: Chronic Assessment and plan: Continue home medications. Qualifiers: Hyperlipidemia type: unspecified Qualified Code(s): E78.5 - Hyperlipidemia , unspecified (16) Hypertension Current Visit: No Status: Chronic Assessment and plan: Stable. Continue home medications. Qualifiers: Hypertension type: essential hypertension Qualified Code(s): I10 - Essential (primary) hypertension - Time Spent With Patient less than 15 minutes - Subjective Interval history: Patient had no acute events overnight. He states that he is doing ok and asks when he is going home. He has 2 complaints: difficulty breathing at bedtime due to cough, and pain in his left chest where he hurt himself after his fall. He denies SOB, fever, or chills. - Constitutional Vitals: Temp Pulse Resp BP Pulse Ox 98.2 F 99 18 136/84 94 05/17/17 17:12 05/17/17 17:12 05/17/17 17:12 05/17/17 17:12 05/17/17 17:12 General appearance: Present: cooperative, A&O X 3, pleasant, no acute distress, answers questions appropriately Exam: Sitting up in chair - Respiratory Respiratory exam: Absent: accessory muscle use, rales, wheezes Additional comments: Normal WOB, intermittent rhonchi worse at bilateral bases - Cardiovascular Cardiovascular exam: Present: RRR, +S1, +S2. Absent: diastolic murmur, gallop, rubs, systolic murmur Additional comments: No BLE edema, mild TTP over chest wall - GI/Abdominal GI/Abdominal exam: Present: normal bowel sounds, soft. Absent: distended, hepatomegaly, mass, splenomegaly, tenderness - Psychiatric Psychiatric exam: Present: normal affect, normal mood. Absent: anxious, depressed - Skin Skin exam: Present: dry, intact, warm. Absent: cyanosis, rash Internal Medicine: Result - Labs CBC & Chem 7: 05/17/17 04:28 05/17/17 04:28 Labs: Short CBC 05/17/17 Range/Units 04:28 WBC 12.6 H (4.3-11.1) K/mcL Hgb 10.4 L (12.9-16.9) g/dL Hct 30.5 L (37.5-50.1) % Plt Count 292 (140-400) K/mcL Neutrophils # 8.6 (1.6-8.9) K/mcL BMP 05/17/17 04:28 Sodium 137 Potassium 4.0 Chloride 105 Carbon Dioxide 25 BUN 21 Creatinine 1.50 H Glucose 176 H Calcium 9.0 - ABG Interpretation ABG results: PT/INR, D-dimer PT 12.2 Seconds (9.4-12.1) H 05/16/17 01:04 - Impressions Impressions Chest X-Ray 05/17/17 17:30 IMPRESSION: Linear infiltrate at the right lung base could represent pneumonia or atelectasis D/ / Mohan Elizalde MD / Mohan Elizalde MD Interpreting Provider: Mohan Elizalde MD Consult Discharge Plan - Plan [facility]: [facility] [Primary Care Provider] -
[2017-05-17] MEDS: Melatonin 3 MG TABLET PO PRN (20:08)
[2017-05-17] MEDS: cefTRIAXone 2,000 MG in Water for inj. (sterile) 20 ML 20 ML IVP SCH (20:08)
[2017-05-17] MEDS: Loratadine 10 MG TABLET PO SCH (20:08)
[2017-05-17] MEDS: MetroNIDAZOLE 500 MG/100 ML 500 MG/100 ML BAG IVPB SCH (20:08)
[2017-05-17] MEDS: Ipratropium/Albuterol Neb 3 ML IH SCH ×2 (20:09→22:01)
[2017-05-17] MEDS: Insulin DETEMIR 100 UNIT/ML X5UNITS SQ SCH (20:24)
[2017-05-18] MEDS: MetroNIDAZOLE 500 MG/100 ML 500 MG/100 ML BAG IVPB SCH ×3 (03:53→23:28)
[2017-05-18 04:19] LABS: Basophils # 0.1 K/mcL (0.0-0.2); Basophils % 0.5 %; Eosinophils # 0.6 K/mcL (0.0-0.6); Hematocrit 30.2 % (37.5-50.1); Hemoglobin 9.9 g/dL (12.9-16.9); Immature Granulocytes % 0.5 % (0-4); Lymphocytes # 2.7 K/mcL (0.6-4.6); Lymphocytes % 23.1 %; Mean Corpuscular HGB Conc 32.8 g/dL (31.6-35.5); Mean Corpuscular Hemoglobin 28.7 pg (28.0-33.3); Mean Corpuscular Volume 87.5 fL (83.0-100.0); Mean Platelet Volume 9.6 fL (9.4-12.4); Monocytes # 0.9 K/mcL (0.0-1.3); Monocytes % 7.6 %; Neutrophils # 7.4 K/mcL (1.6-8.9); Platelet Count 287 K/mcL (140-400); Red Blood Count 3.45 M/mcL (4.19-5.50); Red Cell Distribution Width 13.1 % (11.5-14.5); Segmented Neutrophils % 63.3 %
[2017-05-18 04:38] LABS: Calcium 8.5 mg/dL (8.6-10.3); Potassium 4.1 mEq/L (3.5-5.1)
[2017-05-18] MEDS: *HR* Heparin 5,000 UNIT/ML VIAL SQ SCH ×2 (06:37→17:24)
[2017-05-18] MEDS: Ipratropium/Albuterol Neb 3 ML IH SCH ×3 (07:41→22:39)
[2017-05-18] MEDS: Insulin LISPRO 300 UNITS/3 ML VIAL SQ SCH ×7 (12:52→23:28)
[2017-05-18] MEDS: cefTRIAXone 2,000 MG in Water for inj. (sterile) 20 ML 20 ML IVP SCH (13:11)
[2017-05-18] MEDS: Loratadine 10 MG TABLET PO SCH (13:11)
--- NOTE | 2017-05-18 18:10 | Internal Med Progress Note ---
Date of Encounter: 05/18/17 Time of Encounter: 18:09 - Assessment and plan (1) Aspiration pneumonia Current Visit: Yes Status: Suspected Assessment and plan: CXR concerning for RLL infiltrate. Concern for possible aspiration pneumonia. Continue IV rocephin and IV flagyl. Continue supplemental O2 PRN. Continue duonebs, claritin, mucinex, and PRN robitussin DM for cough. Speech saw patient today; will follow their diet recommendations. Stop IVF after starting diet. Qualifiers: Aspiration pneumonia type: unspecified Laterality: right Lung location: lower lobe of lung Qualified Code(s): J69.0 - Pneumonitis due to inhalation of food and vomit (2) Acute confusional state Current Visit: Yes Status: Chronic Assessment and plan: Somewhat improved. Possibly a new dementia baseline since workup negative so far. Will continue to monitor. Use fall precautions. (3) Fall Current Visit: Yes Status: Acute Assessment and plan: Fall with injury to chest wall. Continue pain control. Fall precautions as per above. PT/OT consulted as per below. SW consulted for possible placement. Qualifiers: Encounter type: initial encounter Qualified Code(s): W19.XXXA - Unspecified fall, initial encounter (4) Left-sided chest wall pain Current Visit: Yes Status: Acute Assessment and plan: Pain improved. Continue Tylenol and oxycodone. (5) Systolic heart failure Current Visit: Yes Status: Chronic Assessment and plan: Echocardiogram done on 03/09/16 showed borderline low LVEF 50%. Continue home medications. Qualifiers: Heart failure chronicity: chronic Qualified Code(s): I50.22 - Chronic systolic (congestive) heart failure (6) Unable to ambulate Current Visit: Yes Status: Acute Assessment and plan: PT/OT consulted. Fall precautions. (7) Acute kidney injury Current Visit: Yes Status: Acute Assessment and plan: Improved. Cr = 1.41. Rhabdomyolysis workup negative. Discontinue IVF after starting diet. Check BMP in AM. (8) Diabetes mellitus Current Visit: Yes Status: Chronic Assessment and plan: Well-controlled. Continue accuchecks and SSI QID AC/HS. Continue home medications. 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 SW consulted for possible acute rehab placement. (10) Aortic stenosis Current Visit: Yes Status: Chronic Qualifiers: Cardiac valve disease etiology: nonrheumatic Qualified Code(s): I35.0 - Nonrheumatic aortic (valve) stenosis (11) CAD (coronary artery disease) Current Visit: Yes Status: Chronic Assessment and plan: Continue home medications. Qualifiers: Coronary Disease-Associated Artery/Lesion type: [place] artery [place] vs. transplanted heart: [place] heart Associated angina: without angina Qualified Code(s): I25.10 - Atherosclerotic heart disease of [place] coronary artery without angina pectoris (12) Dementia Current Visit: Yes Status: Chronic Assessment and plan: Continue home medications. Qualifiers: Dementia type: Alzheimer's disease Alzheimer's disease onset: unspecified onset Dementia behavioral disturbance: without behavioral disturbance Qualified Code(s): G30.9 - Alzheimer's disease, unspecified; F02.80 - Dementia in other diseases classified elsewhere without behavioral disturbance (13) GERD (gastroesophageal reflux disease) Current Visit: Yes Status: Chronic Assessment and plan: Continue home medications. Qualifiers: Esophagitis presence: esophagitis presence not specified Qualified Code(s) : K21.9 - Gastro-esophageal reflux disease without esophagitis (14) Hyperlipidemia Current Visit: Yes Status: Chronic Assessment and plan: Continue home medications. Qualifiers: Hyperlipidemia type: unspecified Qualified Code(s): E78.5 - Hyperlipidemia , unspecified (15) Hypertension Current Visit: No Status: Chronic Assessment and plan: Stable. Continue home medications. Qualifiers: Hypertension type: essential hypertension Qualified Code(s): I10 - Essential (primary) hypertension (16) DVT prophylaxis Current Visit: Yes Status: Acute Assessment and plan: Continue SC heparin. - Time Spent With Patient less than 15 minutes - Subjective Interval history: Patient had no acute events overnight. He states that he's feeling better. Still having some difficultly with orientation questions, but alert and appropriately conversive. Pain in left chest wall is improving. He denies SOB , fever, or chills. He has no new complaints. - Constitutional Vitals: Temp Pulse Resp BP Pulse Ox 98.3 F 99 17 117/69 94 05/18/17 16:26 03/19/18 16:26 05/18/17 16:26 05/18/17 16:26 05/18/17 16:26 General appearance: Present: cooperative, A&O X 2, pleasant, no acute distress, answers questions appropriately - Respiratory Respiratory exam: Present: CTAB. Absent: accessory muscle use, rales, rhonchi, wheezes Additional comments: Normal WOB - Cardiovascular Cardiovascular exam: Present: RRR, +S1, +S2. Absent: diastolic murmur, gallop, rubs, systolic murmur Additional comments: No BLE edema - GI/Abdominal GI/Abdominal exam: Present: normal bowel sounds, soft. Absent: distended, hepatomegaly, mass, splenomegaly, tenderness - Psychiatric Psychiatric exam: Present: normal affect, normal mood. Absent: anxious, depressed - Skin Skin exam: Present: dry, intact, warm. Absent: cyanosis, rash Internal Medicine: Result - Labs CBC & Chem 7: 05/18/17 02:48 05/18/17 02:48 Labs: Short CBC 05/18/17 Range/Units 02:48 WBC 11.7 H (4.3-11.1) K/mcL Hgb 9.9 L (12.9-16.9) g/dL Hct 30.2 L (37.5-50.1) % Plt Count 287 (140-400) K/mcL Neutrophils # 7.4 (1.6-8.9) K/mcL BMP 05/18/17 02:48 Sodium 141 Potassium 4.1 Chloride 106 Carbon Dioxide 26 BUN 23 Creatinine 1.41 H Glucose 165 H Calcium 8.5 L - ABG Interpretation ABG results: PT/INR, D-dimer PT 12.2 Seconds (9.4-12.1) H 05/16/17 01:04 Consult Discharge Plan - Plan [facility]: [facility] [Primary Care Provider] -
[2017-05-18] MEDS: Magnesium Oxide 400 MG TABLET PO SCH (23:26)
[2017-05-18] MEDS: Aspirin 81 MG TAB.CHEW PO SCH (23:26)
[2017-05-18] MEDS: Mirtazapine 15 MG TABLET PO SCH (23:27)
[2017-05-18] MEDS: Insulin DETEMIR 100 UNIT/ML X5UNITS SQ SCH (23:28)
[2017-05-18] MEDS: Eucerin Cream 57 GM TUBE TP SCH (23:29)
[2017-05-18] MEDS: Zinc Oxide 454 GM EACH TP SCH (23:30)
[2017-05-19] MEDS: MetroNIDAZOLE 500 MG/100 ML 500 MG/100 ML BAG IVPB SCH ×3 (03:00→17:45)
[2017-05-19 04:57] LABS: Basophils # 0.1 K/mcL (0.0-0.2); Basophils % 0.6 %; Eosinophils # 0.6 K/mcL (0.0-0.6); Eosinophils % 5.5 %; Hematocrit 28.8 % (37.5-50.1); Hemoglobin 9.4 g/dL (12.9-16.9); Immature Granulocytes % 0.7 % (0-4); Lymphocytes # 2.9 K/mcL (0.6-4.6); Lymphocytes % 27.6 %; Mean Corpuscular HGB Conc 32.6 g/dL (31.6-35.5); Mean Corpuscular Hemoglobin 28.7 pg (28.0-33.3); Mean Corpuscular Volume 87.8 fL (83.0-100.0); Mean Platelet Volume 9.5 fL (9.4-12.4); Monocytes # 0.8 K/mcL (0.0-1.3); Platelet Count 279 K/mcL (140-400); Red Blood Count 3.28 M/mcL (4.19-5.50); Red Cell Distribution Width 13.2 % (11.5-14.5); Segmented Neutrophils % 57.6 %
[2017-05-19 05:13] LABS: BUN/Creatinine Ratio 19 (6-26); Blood Urea Nitrogen 24 mg/dL (8-23); Calcium 8.6 mg/dL (8.6-10.3); Carbon Dioxide 26 mEq/L (23-29); Chloride 108 mEq/L (98-107); Glucose 77 mg/dL (70-105); Osmolality,Calculated 295 (280-300); Potassium 3.7 mEq/L (3.5-5.1); Sodium 141 mEq/L (136-145); eGFR For African Americans > 60 (> 60); eGFR For Non-African Americans 54 (> 60)
[2017-05-19] MEDS: *HR* Heparin 5,000 UNIT/ML VIAL SQ SCH ×2 (06:42→17:45)
[2017-05-19] MEDS: Ipratropium/Albuterol Neb 3 ML IH SCH ×3 (07:51→21:57)
--- NOTE | 2017-05-19 08:05 | Internal Med Progress Note ---
<BoCristino - Last Filed: 05/19/17 12:42> Date of Encounter: 05/19/17 - Constitutional Vitals: Temp Pulse Resp BP Pulse Ox 97.7 F 104 15 108/73 96 05/19/17 10:03 05/19/17 10:03 05/19/17 10:03 05/19/17 10:03 05/19/17 10:03 Internal Medicine: Result - Labs CBC & Chem 7: 05/19/17 04:09 05/19/17 04:09 Labs: Short CBC 05/19/17 Range/Units 04:09 WBC 10.4 (4.3-11.1) K/mcL Hgb 9.4 L (12.9-16.9) g/dL Hct 28.8 L (37.5-50.1) % Plt Count 279 (140-400) K/mcL Neutrophils # 6.0 (1.6-8.9) K/mcL BMP 05/19/17 04:09 Sodium 141 Potassium 3.7 Chloride 108 H Carbon Dioxide 26 BUN 24 H Creatinine 1.27 Glucose 77 Calcium 8.6 - ABG Interpretation ABG results: PT/INR, D-dimer PT 12.2 Seconds (9.4-12.1) H 05/16/17 01:04 Consult Discharge Plan - Plan [facility]errals: [facility] [Primary Care Provider] - - Attending Attestation I performed an independent interview and examine this patient. I agree with the findings, assessment, and plan of Dr. Keen, internal medicine pharmacist intern. Patient continues on Rocephin and Flagyl, day 3 for suspected aspiration pneumonia. Could consider changing to oral Augmentin, will discuss this today. Patient's confusion appears to have improved although I do suspect he has some underlying dementia as well. Patient otherwise is doing well. Await PT and OT consults and sulci were consulted. Patient may need placement. Since chest pain has improved. All else as outlined above. Patient may potentially be discharged to a facility today. <Markell Keen - Last Filed: 05/19/17 15:59> Date of Encounter: 05/19/17 Time of Encounter: 08:04 - Assessment and plan (1) Aspiration pneumonia Current Visit: Yes Status: Suspected Assessment and plan: -CXR concerning for RLL infiltrate -Continue supplemental O2 PRN -Flagyl 500 mg IV Q8 (started 05/17; day 3) -Rocephin 2 g IV daily (started 05/17; day 3) -Mucinex 600 mg PO BID -Duoneb 3ml IH Q8 [place] -Mechanically altered diet; ground meat; No straw Qualifiers: Aspiration pneumonia type: unspecified Laterality: right Lung location: lower lobe of lung Qualified Code(s): J69.0 - Pneumonitis due to inhalation of food and vomit (2) Acute confusional state Current Visit: Yes Status: Chronic Assessment and plan: -Somewhat improved -Possibly a new dementia baseline since workup negative so far -Will continue to monitor -Use fall precautions (3) Fall Current Visit: Yes Status: Acute Assessment and plan: -Fall with injury to chest wall -Continue pain control -Fall precautions -PT/OT consulted -SW consulted for possible placement Qualifiers: Encounter type: initial encounter Qualified Code(s): W19.XXXA - Unspecified fall, initial encounter (4) Left-sided chest wall pain Current Visit: Yes Status: Acute Assessment and plan: -Pain improved -Continue Tylenol and oxycodone (5) Systolic heart failure Current Visit: Yes Status: Chronic Assessment and plan: -Echocardiogram done on 03/09/16 showed borderline low LVEF 50% -Continue home medications Qualifiers: Heart failure chronicity: chronic Qualified Code(s): I50.22 - Chronic systolic (congestive) heart failure (6) Diabetes mellitus Current Visit: Yes Status: Chronic Assessment and plan: -Well-controlled -Continue accuchecks and SSI QID AC/HS Qualifiers: Diabetes mellitus type: type 2 Diabetes 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 Qualifiers: Coronary Disease-Associated Artery/Lesion type: [place] artery [place] vs. transplanted heart: [place] heart Associated angina: without angina Qualified Code(s): I25.10 - Atherosclerotic heart disease of [place] coronary artery without angina pectoris (8) Hypertension Current Visit: No Status: Chronic Assessment and plan: -Patient is a known history of hypertension. -Blood pressure stable at this time. -Lopressor 6.25 mg PO BID -Hydralazine 10 mg IVQ6 PRN Qualifiers: Hypertension type: essential hypertension Qualified Code(s): I10 - Essential (primary) hypertension (9) DVT prophylaxis Current Visit: Yes Status: Acute Assessment and plan: -Heparin 5000 SQ Q12 - Subjective Interval history: 81-year-old male with a past medical history of dementia, CHF, CAD, diabetes mellitus, hypertension. Presented to [facility] accompanied by granddaughter. Just prior to arrival, patient was trying to ambulate by himself, fell onto his left side. Complained of left-sided rib pain. Granddaughter also stated the patient is more confused than his baseline. Patient was not able to provide much history on his own. Patient did report feeling generally weak. Granddaughter reports worsening ambulation; expresses concern about patients safety. EKG demonstrated no acute ST changes. X-ray of ribs and shoulders was unremarkable. CT of the head showed no acute process. Chest x-ray demonstrated possible right lower lobe pneumonia. Patients granddaughter was not comfortable with patient going home due to patients confusion and weakness. Patient was started on IV Rocephin and Flagyl. Placed in fall precautions. PT OT has been consulted. Patient was seen and examined at bedside this morning. States that he is feeling better since his admission. Admits to having a slight cough. Denies sputum production. Denies fever, chills, nausea, vomiting , shortness of breath. No further complaints at this time. - Constitutional Vitals: Temp Pulse Resp BP Pulse Ox 98.3 F 81 16 118/59 93 05/19/17 06:30 05/19/17 06:30 05/19/17 07:53 05/19/17 06:30 05/19/17 07:53 General appearance: Present: cooperative, A&O X 2, pleasant, no acute distress, answers questions appropriately - Head Head exam: Present: atraumatic, normocephalic - Eye Eye exam: Present: PERRL, conjuntiva pink, sclera anicteric Pupils: Present: PERRL - Neck Neck exam general surgery: Present: supple, trachea midline. Absent: lymphadenopathy - Respiratory Respiratory exam: Present: decreased breath sounds, prolonged expiratory phase. Absent: accessory muscle use, rales, rhonchi, wheezes - Cardiovascular Cardiovascular exam: Present: RRR, +S1, +S2. Absent: diastolic murmur, gallop, rubs, systolic murmur - Extremities Exam Extremities exam: Present: warm, radial pulses palpable and symmetrical. Absent : calf tenderness, cyanotic, pedal edema - Neurological Exam Neurological exam: Present: CN II-XII intact, no focal deficits. Absent: pronater drift, facial droop, speech deficit - Skin Skin exam: Present: dry, intact Internal Medicine: Result - Labs CBC & Chem 7: 05/19/17 04:09 05/19/17 04:09 Labs: Short CBC 05/19/17 Range/Units 04:09 WBC 10.4 (4.3-11.1) K/mcL Hgb 9.4 L (12.9-16.9) g/dL Hct 28.8 L (37.5-50.1) % Plt Count 279 (140-400) K/mcL Neutrophils # 6.0 (1.6-8.9) K/mcL BMP 05/19/17 04:09 Sodium 141 Potassium 3.7 Chloride 108 H Carbon Dioxide 26 BUN 24 H Creatinine 1.27 Glucose 77 Calcium 8.6 - ABG Interpretation ABG results: PT/INR, D-dimer PT 12.2 Seconds (9.4-12.1) H 05/16/17 01:04
[2017-05-19] MEDS: Insulin LISPRO 300 UNITS/3 ML VIAL SQ SCH ×7 (10:46→20:27)
[2017-05-19] MEDS: Multivit/Ca/Min/Fe/FA 1 TAB TABLET PO SCH (10:47)
[2017-05-19] MEDS: Aspirin 81 MG TAB.CHEW PO SCH (10:48)
[2017-05-19] MEDS: Finasteride 5 MG TABLET PO SCH (10:48)
[2017-05-19] MEDS: Loratadine 10 MG TABLET PO SCH (10:48)
[2017-05-19] MEDS: cefTRIAXone 2,000 MG in Water for inj. (sterile) 20 ML 20 ML IVP SCH (10:48)
[2017-05-19] MEDS: Eucerin Cream 57 GM TUBE TP SCH ×2 (10:50→20:27)
[2017-05-19] MEDS: Zinc Oxide 454 GM EACH TP SCH ×2 (10:50→20:28)
[2017-05-19] MEDS: Magnesium Oxide 400 MG TABLET PO SCH ×2 (10:50→20:26)
[2017-05-19] MEDS: Insulin DETEMIR 100 UNIT/ML X5UNITS SQ SCH (20:25)
[2017-05-19] MEDS: Mirtazapine 15 MG TABLET PO SCH (20:26)
--- NOTE | 2017-05-19 23:39 | Electrocardiograph Report ---
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
[2017-05-20] MEDS: MetroNIDAZOLE 500 MG/100 ML 500 MG/100 ML BAG IVPB SCH ×3 (03:17→22:41)
[2017-05-20] MEDS: *HR* Heparin 5,000 UNIT/ML VIAL SQ SCH ×2 (05:20→18:10)
[2017-05-20] MEDS: Ipratropium/Albuterol Neb 3 ML IH SCH ×3 (07:19→22:31)
[2017-05-20] MEDS: Insulin LISPRO 300 UNITS/3 ML VIAL SQ SCH ×7 (07:37→22:48)
--- NOTE | 2017-05-20 08:12 | Internal Med Progress Note ---
<SorianoCristino - Last Filed: 05/20/17 12:24> Date of Encounter: 05/20/17 - Constitutional Vitals: Temp Pulse Resp BP Pulse Ox 97.8 F 87 15 129/72 98 05/20/17 10:24 05/20/17 10:24 05/20/17 10:24 05/20/17 10:24 05/20/17 10:24 Internal Medicine: Result - Labs CBC & Chem 7: 05/19/17 04:09 05/19/17 04:09 - ABG Interpretation ABG results: PT/INR, D-dimer PT 12.2 Seconds (9.4-12.1) H 05/16/17 01:04 Consult Discharge Plan - Plan Instructions: Metronidazole (By mouth), Levofloxacin (By mouth), Acute Respiratory Distress Syndrome (DC), Urinary Tract Infection in Men (DC), Diabetes Mellitus Type 2 in Adults (DC), Sepsis (DC), Chronic Dysphagia (DC), Chronic Hypertension (DC), Anemia (GEN), Fall Prevention (DC), Pneumonia (DC) [facility] Provider[facility] - (call to make an appointment) Prescriptions: levoFLOXacin [Levaquin] 750 mg PO DAILY #7 tablet metroNIDAZOLE [Flagyl] 500 mg PO TID #21 tablet - Attending Attestation I performed an independent interview and examine this patient. I agree with the findings, assessment, and plan of Dr. Keen, internal medicine internet webmaster. Patient continues on Levaquin and Flagyl for suspected aspiration pneumonia. He does have a penicillin allergy but cannot clarify specifically what this was. He is tolerating cephalosporins. He will continue with the modified diet. Patient's confusional state appears to have improved but suspect he does have baseline dementia. Patient may need placement. Continue to work with physical therapy and social work, disposition pending. Patient is medically stable for discharge once arrangements are made. <Markell Keen - Last Filed: 05/20/17 15:33> Date of Encounter: 05/20/17 Time of Encounter: 08:11 - Assessment and plan (1) Aspiration pneumonia Current Visit: Yes Status: Suspected Assessment and plan: -CXR concerning for RLL infiltrate -Continue supplemental O2 PRN -Flagyl 500 mg IV Q8 -Rocephin 2 g IV daily -Mucinex 600 mg PO BID -Duoneb 3ml IH Q8 MAGNOLIA -Mechanically altered diet; ground meat; No straw Qualifiers: Aspiration pneumonia type: unspecified Laterality: right Lung location: lower lobe of lung Qualified Code(s): J69.0 - Pneumonitis due to inhalation of food and vomit (2) Acute confusional state Current Visit: Yes Status: Chronic Assessment and plan: -Somewhat improved -Possibly a new dementia baseline since workup negative so far -Will continue to monitor -Use fall precautions (3) Fall Current Visit: Yes Status: Acute Assessment and plan: -Fall with injury to chest wall -Continue pain control -Fall precautions -PT/OT consulted -SW consulted for possible placement Qualifiers: Encounter type: initial encounter Qualified Code(s): W19.XXXA - Unspecified fall, initial encounter (4) Left-sided chest wall pain Current Visit: Yes Status: Acute Assessment and plan: -Pain improved -Continue Tylenol and oxycodone (5) Systolic heart failure Current Visit: Yes Status: Chronic Assessment and plan: -Echocardiogram done on 03/09/16 showed borderline low LVEF 50% -Continue home medications Qualifiers: Heart failure chronicity: chronic Qualified Code(s): I50.22 - Chronic systolic (congestive) heart failure (6) Diabetes mellitus Current Visit: Yes Status: Chronic Assessment and plan: -Well-controlled -Continue accuchecks and SSI QID AC/HS Qualifiers: Diabetes mellitus type: type 2 Diabetes mellitus rn long term care insulin use: without long-term use Diabetes mellitus complication status: with diabetic arthropathy Qualified Code(s): E11.610 - Type 2 diabetes mellitus with diabetic neuropathic arthropathy (7) CAD (coronary artery disease) Current Visit: Yes Status: Chronic Assessment and plan: -Continue home medications. Qualifiers: Coronary Disease-Associated Artery/Lesion type: [place] artery [place] vs. transplanted heart: [place] heart Associated angina: without angina Qualified Code(s): I25.10 - Atherosclerotic heart disease of [place] coronary artery without angina pectoris (8) Hypertension Current Visit: No Status: Chronic Assessment and plan: -Patient is a known history of hypertension. -Blood pressure stable at this time. -Lopressor 6.25 mg PO BID -Hydralazine 10 mg IVQ6 PRN Qualifiers: Hypertension type: essential hypertension Qualified Code(s): I10 - Essential (primary) hypertension (9) DVT prophylaxis Current Visit: Yes Status: Acute Assessment and plan: -Heparin 5000 SQ Q12 - Subjective Interval history: Patient was seen and examined at bedside this morning. States that he is feeling better since his admission. Admits to having a slight cough. Denies sputum production. Denies fever, chills, nausea, vomiting, shortness of breath. No further complaints at this time. - Constitutional Vitals: Temp Pulse Resp BP Pulse Ox 97.4 F L 84 18 144/72 93 05/20/17 06:40 05/20/17 06:40 05/20/17 07:19 05/20/17 06:40 05/20/17 07:19 General appearance: Present: cooperative, A&O X 2, pleasant, no acute distress, answers questions appropriately - Head Head exam: Present: atraumatic, normocephalic - Eye Eye exam: Present: PERRL, conjuntiva pink, sclera anicteric Pupils: Present: PERRL - Neck Neck exam general surgery: Present: supple, trachea midline. Absent: lymphadenopathy - Respiratory Respiratory exam: Present: CTAB. Absent: accessory muscle use, rales, rhonchi, wheezes - Cardiovascular Cardiovascular exam: Present: RRR, +S1, +S2. Absent: diastolic murmur, gallop, rubs, systolic murmur - GI/Abdominal GI/Abdominal exam: Present: normal bowel sounds, soft, no peritoneal signs. Absent: distended, tenderness - Extremities Exam Extremities exam: Present: warm, radial pulses palpable and symmetrical. Absent : calf tenderness, cyanotic, pedal edema - Neurological Exam Neurological exam: Present: CN II-XII intact, oriented X3, no focal deficits. Absent: pronater drift, facial droop, speech deficit - Skin Skin exam: Present: dry, intact Internal Medicine: Result - Labs CBC & Chem 7: 05/19/17 04:09 05/19/17 04:09 - ABG Interpretation ABG results: PT/INR, D-dimer PT 12.2 Seconds (9.4-12.1) H 05/16/17 01:04
[2017-05-20] MEDS: Magnesium Oxide 400 MG TABLET PO SCH ×2 (08:17→22:32)
[2017-05-20] MEDS: Loratadine 10 MG TABLET PO SCH (08:17)
[2017-05-20] MEDS: Aspirin 81 MG TAB.CHEW PO SCH (08:17)
[2017-05-20] MEDS: Multivit/Ca/Min/Fe/FA 1 TAB TABLET PO SCH (08:17)
[2017-05-20] MEDS: cefTRIAXone 2,000 MG in Water for inj. (sterile) 20 ML 20 ML IVP SCH (08:19)
[2017-05-20] MEDS: Finasteride 5 MG TABLET PO SCH (08:24)
[2017-05-20] MEDS: Eucerin Cream 57 GM TUBE TP SCH ×2 (08:26→22:46)
[2017-05-20] MEDS: Zinc Oxide 454 GM EACH TP SCH ×2 (08:27→22:45)
--- NOTE | 2017-05-20 15:26 | Discharge Summary ---
Date of Encounter: 05/20/17 Time of Encounter: 15:26 - Discharge Diagnosis (1) Aspiration pneumonia Priority: Primary Status: Suspected Qualifiers: Aspiration pneumonia type: unspecified Laterality: right Lung location: lower lobe of lung Qualified Code(s): J69.0 - Pneumonitis due to inhalation of food and vomit (2) Acute confusional state Priority: Secondary Status: Chronic (3) Fall Priority: Secondary Status: Acute Qualifiers: Encounter type: initial encounter Qualified Code(s): W19.XXXA - Unspecified fall, initial encounter (4) Left-sided chest wall pain Priority: Secondary Status: Acute (5) Systolic heart failure Priority: Secondary Status: Chronic Qualifiers: Heart failure chronicity: chronic Qualified Code(s): I50.22 - Chronic systolic (congestive) heart failure (6) Diabetes mellitus Priority: Secondary Status: Chronic Qualifiers: Diabetes mellitus type: type 2 Diabetes mellitus paid search manager insulin use: without paid search manager use Diabetes mellitus complication status: with diabetic arthropathy Qualified Code(s): E11.610 - Type 2 diabetes mellitus with diabetic neuropathic arthropathy (7) CAD (coronary artery disease) Priority: Secondary Status: Chronic Qualifiers: Coronary Disease-Associated Artery/Lesion type: [place] artery [place] vs. transplanted heart: [place] heart Associated angina: without angina Qualified Code(s): I25.10 - Atherosclerotic heart disease of [place] coronary artery without angina pectoris (8) Hypertension Priority: Secondary Status: Chronic Qualifiers: Hypertension type: essential hypertension Qualified Code(s): I10 - Essential (primary) hypertension (9) DVT prophylaxis Priority: Secondary Status: Acute Hospital course: Mr. Edge is a 81 year old male with a past medical history of dementia, CHF, CAD, diabetes mellitus, and hypertension. He presented to the hospital accompanied by his granddaughter. Just prior to arrival, patient was trying to ambulate by himself, and fell onto his left side. He complained of having left- sided rib pain. Granddaughter also stated that the patient is much more confused than his baseline. He was not able to provide much history on his own. He reported feeling generally weak. His granddaughter reported that patient has had worsening ambulation. She expressed concern about patient's safety. Upon arrival, EKG was obtained. It demonstrated no acute ST changes. X-ray of the ribs and shoulders were unremarkable, and demonstrated no fractures. CT of the head showed no acute process. Chest x-ray demonstrated possible right lower lobe pneumonia. Patient's granddaughter was not comfortable with patient going home due to his confusion and weakness. He was initially started on IV Rocephin and Flagyl for the treatment of his pneumonia. He was placed in fall precautions. PT OT was consulted. During his stay in the hospital, patient's condition began to improve. On the date of discharge, he denies having any shortness of breath. His white count was normal. He was alert and oriented 2. Patient will be discharged to his daughter's home. He will continue his antibiotic therapy; 7 days of Levaquin and Flagyl by mouth. Patient will need a follow-up chest x-ray in one month. - Time Spent with Patient Total time spent providing and/or coordinating discharge services: Greater than 30 minutes (42 minutes) - Discharge Medications Prescriptions: levoFLOXacin [Levaquin] 750 mg PO DAILY #7 tablet metroNIDAZOLE [Flagyl] 500 mg PO TID #21 tablet Home Medications: Aspirin 81 mg PO DAILY tab.chew 03/25/16 [Rx] Albuterol Sulfate [Albuterol Inhaler] 1 puff IH Q6H PRN 05/18/17 [History] Donepezil [Aricept] 10 mg PO HS 05/18/17 [History] Finasteride [Proscar] 5 mg PO DAILY 05/18/17 [History] Gyltrol 1 each PO BID 05/18/17 [History] Ipratropium/Albuterol Neb [Duoneb] 3 ml IH Q4HR PRN 05/18/17 [History] Magnesium Oxide [Magnesium] 400 mg PO BID 05/18/17 [History] Metformin HCl [Metformin HCl ER] 500 mg PO DAILY 05/18/17 [History] Metoprolol [Lopressor] 6.25 mg PO BID 05/18/17 [History] Mineral Oil/Petrolatum,White [Eucerin Creme] 1 appl TP BID 05/18/17 [History] Mirtazapine [Remeron] 15 mg PO HS 05/18/17 [History] Multivitamin [One Daily Multivitamin] 1 tab PO DAILY 05/18/17 [History] Omeprazole [PriLOSEC] 20 mg PO DAILY 05/18/17 [History] Saxagliptin HCl [Onglyza] 2.5 mg PO DAILY 05/18/17 [History] Sertraline [Zoloft] 50 mg PO DAILY 05/18/17 [History] Simvastatin [Zocor] 20 mg PO HS 05/18/17 [History] Tamsulosin [Flomax] 0.4 mg PO BID 05/18/17 [History] Zinc Oxide 1 appl TP BID 05/18/17 [History] levoFLOXacin [Levaquin] 750 mg PO DAILY #7 tablet 05/20/17 [Rx] metroNIDAZOLE [Flagyl] 500 mg PO TID #21 tablet 05/20/17 [Rx] Allergies/Adverse Reactions: 3 Allergy/AdvReac Type Severity Reaction Status Date / Time metformin AdvReac See Verified 05/18/17 10:19 Comments Penicillins [PCN] AdvReac See Verified 05/19/17 14:12 Comments Date of admission: 05/16/17 06:06 [facility] care physician[facility] Consults: 05/16/17 08:49 Consult to Physical Therapy [CONS] Routine Comment: Evaluate, develop and implement POC Reason for Consult: Weakness, debility Does patient have active BEDREST order?: No Is patient medically & hemodynamically stable?: Yes Consult to Microbiology Technician [CONS] Routine Reason for SW Consult: Possible placement 05/16/17 08:50 Consult to Occupational Therapy [CONS] Routine Comment: Evaluate, develop and implement POC Reason for Consult: Weakness, debility Does patient have active BEDREST order?: No Is patient medically & hemodynamically stable?: Yes Discharging clinician: Markell Keen Anticipated date of discharge: 05/20/17 - Constitutional Vitals: Temp Pulse Resp BP Pulse Ox 97.7 F 68 16 133/62 98 05/20/17 15:11 05/20/17 15:11 05/20/17 15:11 05/20/17 15:11 05/20/17 15:11 General appearance: Present: cooperative, A&O X 2, pleasant, no acute distress, answers questions appropriately - Head Head exam: Present: atraumatic, normocephalic - Eye Eye exam: Present: PERRL, conjuntiva pink, sclera anicteric Pupils: Present: PERRL - Neck Neck exam general surgery: Present: supple, trachea midline. Absent: lymphadenopathy - Respiratory Respiratory exam: Present: CTAB. Absent: accessory muscle use, rales, rhonchi, wheezes - Cardiovascular Cardiovascular exam: Present: RRR, +S1, +S2. Absent: diastolic murmur, gallop, rubs, systolic murmur - Extremities Exam Extremities exam: Present: warm, radial pulses palpable and symmetrical. Absent : calf tenderness, cyanotic, pedal edema - Neurological Exam Neurological exam: Present: CN II-XII intact, no focal deficits. Absent: pronater drift, facial droop, speech deficit - Skin Skin exam: Present: dry, intact - Patient Status Disposition: Home, Self-Care Condition: Good Overall status at discharge: patient is progressing back to baseline - Discharge Instructions Instructions: Metronidazole (By mouth), Levofloxacin (By mouth), Acute Respiratory Distress Syndrome (DC), Urinary Tract Infection in Men (DC), Diabetes Mellitus Type 2 in Adults (DC), Sepsis (DC), Chronic Dysphagia (DC), Chronic Hypertension (DC), Anemia (GEN), Fall Prevention (DC), Pneumonia (DC) [facility]: [facility] - (call to make an appointment) - Diet and Activity Activity: increase activity as tolerated Diet: advance to your usual diet
--- NOTE | 2017-05-20 15:50 | Physician Discharge Referral ---
Home Health/Hosp Referral Info Transfer to: Home Health Provider in Charge Post Discharge: PCP - Diagnosis (1) Aspiration pneumonia Priority: Primary Status: Suspected (2) Acute confusional state Priority: Secondary Status: Chronic (3) Fall Priority: Secondary Status: Acute (4) Left-sided chest wall pain Priority: Secondary Status: Acute (5) Systolic heart failure Priority: Secondary Status: Chronic (6) Diabetes mellitus Priority: Secondary Status: Chronic (7) CAD (coronary artery disease) Priority: Secondary Status: Chronic (8) Hypertension Priority: Secondary Status: Chronic (9) DVT prophylaxis Priority: Secondary Status: Acute - Respiratory Orders Oxygen / L per min Smoking Cessation: Smoking cessation has been advised. For more information, call the [employer] Quit Line at [phone]-NOW. - Services Needed Following services are medically necessary services: Nursing, Physical Therapy - Transfer Medications Prescriptions: levoFLOXacin [Levaquin] 750 mg PO DAILY #7 tablet metroNIDAZOLE [Flagyl] 500 mg PO TID #21 tablet Home Medications: Aspirin 81 mg PO DAILY tab.chew 03/25/16 [Rx] Albuterol Sulfate [Albuterol Inhaler] 1 puff IH Q6H PRN 05/18/17 [History] Donepezil [Aricept] 10 mg PO HS 05/18/17 [History] Finasteride [Proscar] 5 mg PO DAILY 05/18/17 [History] Gyltrol 1 each PO BID 05/18/17 [History] Ipratropium/Albuterol Neb [Duoneb] 3 ml IH Q4HR PRN 05/18/17 [History] Magnesium Oxide [Magnesium] 400 mg PO BID 05/18/17 [History] Metformin HCl [Metformin HCl ER] 500 mg PO DAILY 05/18/17 [History] Metoprolol [Lopressor] 6.25 mg PO BID 05/18/17 [History] Mineral Oil/Petrolatum,White [Eucerin Creme] 1 appl TP BID 05/18/17 [History] Mirtazapine [Remeron] 15 mg PO HS 05/18/17 [History] Multivitamin [One Daily Multivitamin] 1 tab PO DAILY 05/18/17 [History] Omeprazole [PriLOSEC] 20 mg PO DAILY 05/18/17 [History] Saxagliptin HCl [Onglyza] 2.5 mg PO DAILY 05/18/17 [History] Sertraline [Zoloft] 50 mg PO DAILY 05/18/17 [History] Simvastatin [Zocor] 20 mg PO HS 05/18/17 [History] Tamsulosin [Flomax] 0.4 mg PO BID 05/18/17 [History] Zinc Oxide 1 appl TP BID 05/18/17 [History] levoFLOXacin [Levaquin] 750 mg PO DAILY #7 tablet 05/20/17 [Rx] metroNIDAZOLE [Flagyl] 500 mg PO TID #21 tablet 05/20/17 [Rx] Allergies/Adverse Reactions: 3 Allergy/AdvReac Type Severity Reaction Status Date / Time metformin AdvReac See Verified 05/18/17 10:19 Comments Penicillins [PCN] AdvReac See Verified 05/19/17 14:12 Comments Certification: Further, I certify that my clinical findings support that this patient is homebound (i.e. absences from home require considerable and taxing effort and are for medical reasons or sikhism services or infrequently or short duration when for other reasons) because: Homebound Reason: Patient requires assistance of a person or device to safely leave home Attestation: My signature below is to certify that this patient is under my care and that I, or nurse practitioner, or a physician's restaurant assistant working with me, has a face-to -face encounter with this patient.
[2017-05-20] MEDS: Mirtazapine 15 MG TABLET PO SCH (22:33)
[2017-05-20] MEDS: Insulin DETEMIR 100 UNIT/ML X5UNITS SQ SCH (22:45)
[2017-05-21] MEDS: *HR* Heparin 5,000 UNIT/ML VIAL SQ SCH (05:53)
[2017-05-21 06:34] VITALS: BP 135/67
[2017-05-21] MEDS ORDERED: MetroNIDAZOLE 500 MG/100 ML 500 MG/100 ML BAG IVPB SCH (07:00)
[2017-05-21] MEDS: Ipratropium/Albuterol Neb 3 ML IH SCH ×2 (08:22→15:31)
[2017-05-21] MEDS ORDERED: metroNIDAZOLE 500 MG TABLET PO SCH (09:00)
[2017-05-21] MEDS: Multivit/Ca/Min/Fe/FA 1 TAB TABLET PO SCH (09:19)
[2017-05-21] MEDS: Aspirin 81 MG TAB.CHEW PO SCH (09:20)
[2017-05-21] MEDS: Finasteride 5 MG TABLET PO SCH (09:20)
[2017-05-21] MEDS: Insulin LISPRO 300 UNITS/3 ML VIAL SQ SCH ×4 (09:20→12:05)
[2017-05-21] MEDS: Loratadine 10 MG TABLET PO SCH (09:20)
[2017-05-21] MEDS: Magnesium Oxide 400 MG TABLET PO SCH (09:20)
[2017-05-21] MEDS: cefTRIAXone 2,000 MG in Water for inj. (sterile) 20 ML 20 ML IVP SCH (09:21)
[2017-05-21] MEDS: Eucerin Cream 57 GM TUBE TP SCH (09:29)
== END 2017-05-21 17:03 | disposition home or self-care (01) ==
LOC: 2NENU 00:35 → EMEROO 00:35 → 2NENU 06:21
PROVIDERS: ADMIT Student in an Organized Health Care Education/Training Program; ATTEND Family Medicine